=== PATIENT | female | born 1950 | race Caucasian/White ===

== ENCOUNTER → 2016-10-27 | Outpatient (CLI) | payer OTHER ==
[~2016-10-27] MED LIST: ADVIN25/60 INH; ALBINS/ INH; ALBU18002 INH; ALBU1AER9 INH; BACL10TA PO; BIOTCAP2 PO; CARB200T PO; CEFD300C2 PO; CEPH500C2 PO; CLON1TAB3 PO; CLOP1TAB5 PO; CZR50 PO; DIPH1TAB PO; DIPH25CA37 PO; DOXE25CA2 PO; FAMO20TA9 PO; GFNSR600 PO; HYDR-3983 PO; LACT10SO17 PO; LAMO150T32 PO; LCTL30 PO; LEVO1TAB35 PO; LOSA50TA6 PO; MELA1TAB22 PO; MELA1TAB3 PO; MELO7.5T5 PO; MORP1TAB12 PO; MORP30TA23 PO; NCDT21 TOP; ONDA4TAB46 PO; POTTAB2 PO; PRED10TA PO; PROAIR INH; QUET1TAB34 PO; ROSU5TAB PO; SERT1TAB68 PO; SYMIN160 INH; TIOT1AER2 INH; TOPI200T14 PO; UMEC1INH INH; VTMD PO; ZINC1TAB4 PO; ZINC50TA3 PO; ZOLP10TA6 PO
[2016-10-27 17:10] LABS: BASO % 0.2 %; BASO ABS # 0.02 K/uL (0-0.2); COMPLETE YES; EOS % 1.2 %; HEMATOCRIT 39.7 % (37-47); IG% 0.2 %; LYMPH % 18.4 %; MEAN CORPUSCULAR HEMOGLOBIN 34.9 pg (25-34); MEAN CORPUSCULAR HGB CONC 34.5 g/dl (32-36); MEAN PLATELET VOLUME 9.5 fL (7.4-10.4); MONO % 5.3 %; NEUT % 74.7 %; PLATELET COUNT 286 K/uL (130-400); RED BLOOD COUNT 3.93 M/uL (4.2-5.4); WHITE BLOOD COUNT 8.69 K/uL (4.8-10.8)
[2016-10-27 17:18] LABS: ALT/SGPT 18 U/L (12-78); BLOOD UREA NITROGEN 13 mg/dl (7-18); BUN/CREATININE RATIO 17.2 (10-20); CALCIUM 9.2 mg/dl (8.5-10.1); CARBON DIOXIDE 23 mmol/L (21-32); CHLORIDE 104 mmol/L (98-107); CHOLESTEROL 114 mg/dl (0-200); CREATININE 0.76 mg/dl (0.60-1.20); GLUCOSE 97 mg/dl (70-99); POTASSIUM 4.4 mmol/L (3.5-5.1); SODIUM 138 mmol/L (136-145)
[2016-10-27 17:28] LABS: ALB/GLOB RATIO 1.3 (0.9-2); ALKALINE PHOSPHATASE 57 U/L (45-117); AST/SGOT 18 U/L (15-37); CHOLESTEROL/HDL RATIO 2.4; HDL CHOLESTEROL 47 mg/dl; LDL CHOLESTEROL CALCULATED 54 mg/dl; THYROID STIMULATING HORMONE 0.835 uIu/ml (0.300-4.500); TRIGLYCERIDES 67 mg/dl (0-150); VERY LOW DENSITY LIPOPROT CALC 13 mg/dl
[2016-10-28 06:21] LABS: ESTIMATED AVERAGE GLUCOSE 111 mg/dl; HA1C FLAG Normal (Normal)
== END | disposition home or self-care (01) ==
LOC: C.LABBFT 15:58
PROVIDERS: ATTEND Internal Medicine
DX: E55.9 Vitamin D deficiency, unspecified (principal); R73.01 Impaired fasting glucose; E78.00 Pure hypercholesterolemia, unspecified; R63.4 Abnormal weight loss

== ENCOUNTER 2016-12-18 19:02 | Observation (INO) | payer OTHER ==
[~2016-12-18] VITALS: Ht 160 cm; Wt 59.3 kg
[~2016-12-18 19:02] MED LIST changes: -ADVIN25/60 INH; -ALBINS/ INH; -ALBU18002 INH; -BACL10TA PO; -CEFD300C2 PO; -CEPH500C2 PO; -CZR50 PO; -DIPH1TAB PO; -FAMO20TA9 PO; -GFNSR600 PO; -LACT10SO17 PO; -LAMO150T32 PO; -LCTL30 PO; -LEVO1TAB35 PO; -LOSA50TA6 PO; -MELA1TAB22 PO; -MELA1TAB3 PO; -MELO7.5T5 PO; -MORP1TAB12 PO; -NCDT21 TOP; -ONDA4TAB46 PO; -POTTAB2 PO; -PRED10TA PO; -PROAIR INH; -QUET1TAB34 PO; -TIOT1AER2 INH; -UMEC1INH INH; -VTMD PO; -ZINC1TAB4 PO
[2016-12-18] MEDS ORDERED: SODIUM CHLORIDE 0.9% 1000ML 1,000 ML IV ONE (19:12)
--- NOTE | 2016-12-18 19:25 | EMERGENCY ROOM VISIT NOTE ---
History Report prepared by Miguelina: Romel Banks Under the Supervision of: Dr. Lavell Nunez D.O. First contact with patient: 19:03 Chief Complaint: LETHARGIC Stated Complaint: LETHARGIC History of Present Illness The patient is a 66 year old female who presents to the Emergency Room due to worsening lethargy and altered mental status that began a few days prior to arrival. Per the patient's cousin the patient has been sleeping most of the day the past couple days. When she would wake up today she was not communicating efficiently and was not able to be understood. She has been vomiting for the past couple of days, and vomited once today after a breakfast of coffee and half a slice of toast. The cousin states that the patient is normally able to communicate at baseline. She does have a history of seizures, but her cousin states that she has not had any lately. She is a diabetic and also has a history of a stroke. She is a smoker but has not been using drugs or alcohol. The patient was not recently complaining of headaches or abdominal pain. 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 A total of 10 systems reviewed and were otherwise negative. 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 (11) TOBACCO USE DISORDER Family History Lung disease Social History Smoking Status: Current Every Day Smoker Alcohol Use: none Marital Status: Housing Status: lives with family Occupation Status: unemployed, disabled Current/Historical Medications Scheduled Baclofen (Lioresal), 10 MG PO TID Biotin (Biotin 5000), 1 CAP PO DAILY Budesonide/Formoterol Fumarate (Symbicort 160/4.5 Inhaler), 2 PUFFS INH BID Clopidogrel Bisulfate (Plavix), 75 MG PO DAILY Ergocalciferol (Vitamin D), 1 CAP PO WK Famotidine (Pepcid), 20 MG PO DAILY Lamotrigine (Lamictal), 150 MG PO BID Levofloxacin (Levaquin), 750 MG PO DAILY Losartan Potassium (Losartan Potassium), 50 MG PO SS Melatonin-Pyridoxine (Melatonin), 10 MG PO HS Morphine Sulfate (Morphine Sulfate Er), 30 MG PO Q12 Quetiapine Fumarate (Seroquel), 100 MG PO HS Rosuvastatin Calcium (Crestor), 5 MG PO HS Tiotropium [place] Monohydrate (Spiriva Respimat), 2 PUFF INH DAILY Umeclidinium [place] (Incruse Ellipta), 1 PUFF INH DAILY Zinc (Zinc), 50 TAB PO AMHS Scheduled PRN Diphenhydramine Hcl (Benadryl Allergy), 25 MG PO Q6 PRN for Hydrocodone/Acetaminophen 7.5MG/325MG ([place] 7.5MG/325MG), 1 TAB PO TID PRN for Pain Meloxicam (Mobic), 7.5 MG PO DAILY PRN for Pain [Proair], 2 PUFFS INH QID PRN for SOB/Wheezing Allergies Coded Allergies: Penicillins (Verified Allergy, Unknown, 06/29/16) PATIENT IS NOT ALLERGIC TO PCN - HAS BEEN ON KEFLEX BEFORE PER DR. VALLE - ONLY NAUSEA Physical Exam Vital Signs Date Time Temp Pulse Resp B/P Pulse Ox O2 Delivery O2 Flow Rate FiO2 12/18/16 21:45 77 18 112/71 100 12/18/16 21:06 84 18 122/73 100 Room Air 12/18/16 19:18 80 12/18/16 19:07 100 Room Air 12/18/16 19:07 36.6 82 16 115/68 100 Room Air Physical Exam GENERAL: Patient is listless and falls asleep quickly when not being evaluated. She does respond to verbal stimuli, but not appropriately. EYES: The conjunctivae are clear. The pupils are constricted and minimally reactive to light. EARS, NOSE, MOUTH AND THROAT: The nose is without any evidence of any deformity. Mucous membranes are dry tongue is midline NECK: The neck is nontender and supple. RESPIRATORY: Shallow respirations weer noted, diminished breath sounds throughout. No tachypnea or retractions noted. CARDIOVASCULAR: Regular rate and rhythm noted there no murmurs rubs or gallops normal S1 normal S2 GASTROINTESTINAL: The abdomen is distended but soft. Bowel sounds are present in all quadrants. Abdomen is nontender PELVIS: The Pelvis is stable. No tenderness to palpation is noted. BACK: No midline tenderness or or step-off noted range of motion in flexion extension as well as rotation no signs of muscle spasm noted MUSCULOSKELETAL/EXTREMITIES: There is no evidence of gross deformity full range of motion is noted in the hips and shoulders SKIN: There is no obvious evidence of any rash. There are no petechiae, pallor or cyanosis noted. NEUROLOGIC: Does not answer questions appropriately. Unable to assess. Reflexes 3+ in both lower extremities. Medical Decision & Procedures ER Provider Diagnostic Interpretation: Radiology results as stated below per my review and radiologist interpretation: CT SCAN OF THE ABDOMEN AND PELVIS WITHOUT IV CONTRAST CLINICAL HISTORY: Generalized abdominal pain. Vomiting. COMPARISON STUDY: Abdominal CT dated 04/09/2016. TECHNIQUE: CT scan of the abdomen and pelvis is performed from the lung bases to the proximal femora. Images are reviewed in the axial, sagittal, and coronal planes. IV contrast was not administered for this examination as per the front clinician. Note that the examination was performed in significantly suboptimal fashion without oral and IV contrast. The examination is also degraded by motion artifact. Automated dose control exposure was utilized. CT DOSE: 294.23 mGy.cm FINDINGS: Lung bases: The heart is normal in size and without pericardial effusion. There are coronary artery calcifications. There is diminished attenuation of the cardiac blood pool as compared to the myocardium suggesting anemia. The lung bases are clear noting dependent atelectasis. Liver: The unenhanced liver is normal in size, contour, and attenuation. There is mild central intrahepatic biliary ductal dilatation. Gallbladder: Surgically absent noting clips in the gallbladder fossa. Spleen: Normal in size and attenuation. Pancreas: Atrophic and grossly unremarkable but not well assessed. Adrenal glands: A 1.3 cm left adrenal nodule meets CT criteria for a fat-containing adenoma. The right adrenal gland is unremarkable. Kidneys: The unenhanced kidneys are atrophic and without hydronephrosis. There are no renal calculi identified. There is no evidence of contour deforming renal mass lesion. Abdominal vasculature: The abdominal aorta is normal in course and caliber noting moderate to advanced atherosclerotic calcification. Bowel: The small bowel and colon are normal in course and caliber. There is moderate to severe colonic fecal retention. A portion of the normal appendix is likely seen on image #[id number]. Peritoneum: There is no intraperitoneal free air or abdominal ascites. Lymphadenopathy: None. Pelvic viscera: The bladder is normal as visualized. The uterus is surgically absent. No adnexal lesion is seen. Surgical clips are seen in the groin bilaterally. Skeletal structures: The skeletal structures are heterogeneously osteopenic. There is advanced lumbar sacral spondylosis with evidence of laminectomy in the lower lumbar region. No lytic or blastic lesions are seen. A bone graft donor site is noted in the right ilium. IMPRESSION: 1. Significantly suboptimal examination without oral and IV contrast. The examination is also degraded by motion artifact. 2. No acute infectious or inflammatory findings are identified in the abdomen or pelvis. 3. Moderate to severe constipation. 4. Additional findings as above. Electronically signed by: Demarco Abreu M.D. 12/18/2016 8:11 PM Dictated Date/Time: 12/18/2016 8:00 PM SINGLE VIEW CHEST CLINICAL HISTORY: Sepsis. FINDINGS: An AP, portable, upright chest radiograph is compared to study dated 06/29/2016 and correlated with chest CT dated 01/21/2016. The examination is degraded by portable technique and patient rotation. The cardiomediastinal silhouette is unremarkable. There is atherosclerotic calcification of the thoracic aorta. Advanced emphysema and chronic interstitial thickening is similar to previous. No airspace consolidation or pleural effusion is identified. No pneumothorax is seen. The skeletal structures are osteopenic. Degenerative change is noted throughout the thoracic spine. Fusion hardware is present in the lower cervical spine. Surgical clips are identified in the upper abdomen. IMPRESSION: Advanced emphysema with no acute cardiopulmonary abnormality. Electronically signed by: Demarco Abreu M.D. 12/18/2016 8:47 PM Dictated Date/Time: 12/18/2016 8:[address] SCAN OF THE BRAIN WITHOUT IV CONTRAST CLINICAL HISTORY: Change in mental status. COMPARISON STUDY: CT of the brain dated 06/29/2016. TECHNIQUE: Unenhanced axial CT scan of the brain is performed from the vertex to the skull base. CT DOSE: 537.48 mGy.cm FINDINGS: Brain parenchyma: There are age-related involutional changes noting mild subcortical and periventricular microangiopathic change. There is no hemorrhage, mass effect, or evidence of acute territorial ischemia by CT criteria. Eagle-white matter is preserved. No extra-axial fluid collection is seen. Ventricles, sulci, cisterns: Prominent secondary to involutional change. Intracranial vasculature: There is mild atherosclerotic calcification of the cavernous carotid arteries. Calvarium: Unremarkable. Sinuses and mastoids: The visualized paranasal sinuses are clear. The mastoid air cells are well pneumatized. Orbits: The bony orbits are grossly intact. IMPRESSION: There is no hemorrhage, mass effect, or evidence of acute territorial ischemia by CT criteria. Electronically signed by: Demarco Abreu M.D. 12/18/2016 8:03 PM Dictated Date/Time: 12/18/2016 8:01 PM Laboratory Results 12/18/16 19:40 Red Blood Count 3.47, Mean Corpuscular Volume 101.7, Mean Corpuscular Hemoglobin 36.0, Mean Corpuscular Hemoglobin Concent 35.4, Mean Platelet Volume 8.8, Neutrophils (%) (Auto) 61.7, Lymphocytes (%) (Auto) 28.7, Monocytes (%) ( Auto) 7.5, Eosinophils (%) (Auto) 1.5, Basophils (%) (Auto) 0.5, Neutrophils # ( Auto) 4.85, Lymphocytes # (Auto) 2.26, Monocytes # (Auto) 0.59, Eosinophils # ( Auto) 0.12, Basophils # (Auto) 0.04 12/18/16 19:40 Test 12/18/16 19:25 12/18/16 19:40 12/18/16 19:48 Urine Color YELLOW Urine Appearance CLEAR (CLEAR) Urine pH 6.5 (4.5-7.5) Urine Specific [place] 1.009 (1.000-1.030) Urine Protein NEG (NEG) Urine Glucose (UA) NEG (NEG) Urine Ketones NEG (NEG) Urine Occult Blood NEG (NEG) Urine Nitrite POS (NEG) Urine Bilirubin NEG (NEG) Urine Urobilinogen NEG (NEG) Urine Leukocyte Esterase MODERATE (NEG) Urine WBC (Auto) >30 /hpf (0-5) Urine RBC (Auto) 0-4 /hpf (0-4) Urine Hyaline Casts (Auto) 0 /lpf (0-5) Urine Epithelial Cells (Auto) 0-5 /lpf (0-5) Urine Bacteria (Auto) 3+ (NEG) Urine Yeast (Auto) (NONE PRSENT) Urine Opiates Screen POS (NEG) Urine Methadone, Qualitative NEG (NEG) Urine Barbiturates NEG (NEG) Urine Phencyclidine (PCP) Level NEG (NEG) Ur Amphetamine/Methamphetamine NEG (NEG) MDMA (Ecstasy) Screen NEG (NEG) Urine Benzodiazepines Screen NEG (NEG) Urine Cocaine Metabolite NEG (NEG) Urine Marijuana (THC) NEG (NEG) White Blood Count 7.87 K/uL (4.8-10.8) Red Blood Count 3.47 M/uL (4.2-5.4) Hemoglobin 12.5 g/dL (12.0-16.0) Hematocrit 35.3 % (37-47) Mean Corpuscular Volume 101.7 fL (80-100) Mean Corpuscular Hemoglobin 36.0 pg (25-34) Mean Corpuscular Hemoglobin Concent 35.4 g/dl (32-36) Platelet Count 284 K/uL (130-400) Mean Platelet Volume 8.8 fL (7.4-10.4) Neutrophils (%) (Auto) 61.7 % Lymphocytes (%) (Auto) 28.7 % Monocytes (%) (Auto) 7.5 % Eosinophils (%) (Auto) 1.5 % Basophils (%) (Auto) 0.5 % Neutrophils # (Auto) 4.85 K/uL (1.4-6.5) Lymphocytes # (Auto) 2.26 K/uL (1.2-3.4) Monocytes # (Auto) 0.59 K/uL (0.11-0.59) Eosinophils # (Auto) 0.12 K/uL (0-0.5) Basophils # (Auto) 0.04 K/uL (0-0.2) RDW Standard Deviation 53.9 fL (36.4-46.3) RDW Coefficient of Variation 14.5 % (11.5-14.5) Immature Granulocyte % (Auto) 0.1 % Immature Granulocyte # (Auto) 0.01 K/uL (0.00-0.02) Erythrocyte Sedimentation Rate 13 mm/hr (0-21) Prothrombin Time 10.4 SECONDS (9.0-12.0) Prothromb Time International Ratio 1.0 (0.9-1.1) Activated Partial Thromboplast Time 25.0 SECONDS (21.0-31.0) Partial Thromboplastin Ratio 1.0 Venous Blood pH 7.37 (7.36-7.41) Venous Blood Partial Pressure CO2 51 mmHg (38.0-50.0) Venous Blood Partial Pressure O2 22 mmHg Venous Blood HCO3 29 mmol/L Venous Blood Oxygen Saturation < 60.0 % Venous Blood Base Excess 2.5 mmol/L Anion Gap 9.0 mmol/L (3-11) Est Creatinine Clear Calc Drug Dose 59.4 ml/min Estimated GFR () 93.3 Estimated GFR (Non- 80.5 BUN/Creatinine Ratio 12.2 (10-20) Calcium Level 8.5 mg/dl (8.5-10.1) Phosphorus Level 3.5 mg/dl (2.5-4.9) Magnesium Level 2.2 mg/dl (1.8-2.4) Total Bilirubin 0.4 mg/dl (0.2-1) Aspartate Amino Transf (AST/SGOT) 15 U/L (15-37) Alanine Aminotransferase (ALT/SGPT) 18 U/L (12-78) Alkaline Phosphatase 62 U/L (45-117) Ammonia < 10.0 umol/L (11-32) Total Creatine Kinase 46 U/L (26-192) Creatine Kinase MB 1.5 ng/ml (0.5-3.6) Creatine Kinase MB Ratio 3.3 (0-3.0) Troponin I < 0.015 ng/ml (0-0.045) C-Reactive Protein 0.99 mg/dl (0-0.29) Pro-B-Type Natriuretic Peptide 172 pg/ml (0-900) Total Protein 6.6 gm/dl (6.4-8.2) Albumin 3.6 gm/dl (3.4-5.0) Globulin 3.0 gm/dl (2.5-4.0) Albumin/Globulin Ratio 1.2 (0.9-2) Lipase 51 U/L (73-393) Salicylates Level 5.6 mg/dl (2.8-20) Acetaminophen Level 7 ug/ml (10-30) Bedside Lactic Acid Venous 0.74 mmol/L (0.90-1.70) Laboratory results per my review. Medications Administered Medications (Trade) Dose Ordered Sig/Zeinab Route Start Time Stop Time Status Last Admin Dose Admin Sodium Chloride (Nss 1000ml) 1,000 ml @ 999 mls/hr Q1H1M ONCE IV 12/18/16 19:12 12/18/16 20:12 DC 12/18/16 19:18 999 MLS/HR Levofloxacin (Levaquin / D5W) 750 mg NOW STAT IV 12/18/16 20:16 12/18/16 20:17 DC 12/18/16 20:25 750 MG ED Course 1905: The patient was evaluated in room C4. A complete history and physical examination were performed. 1911: Ordered Sodium Chloride 1000 mL @ 999 mL/hr IV. 2015: Ordered Levofloxacin 750 mg IV. 2052: I discussed the case with Dr. Lin Quintana [facility] Hospitalist, he will evaluate the patient for further treatment. Medical Decision The patient's history was concerning for altered mental status. Differential diagnosis: Etiologies such as metabolic, infection, hypoglycemia, electrolyte abnormalities , cardiac sources, intracerebral event, toxicologic, neurologic, as well as others were entertained. Nursing notes reviewed. Additional history is obtained from the patient's family members. Additional history is obtained from the prehospital personnel. The patient is a 66-year-old female who presented to the emergency department for evaluation of altered mental status. The patient is on multiple pain medications which are chronic. Her family members are afraid that she lost some weight recently and they feel that she is on too much pain medication. The patient was treated with IV fluids and IV antibiotics for presumed urinary tract infection. She was reevaluated multiple times. I discussed the patient's laboratory and radiographic studies with her and her family members. Her condition slowly improved at this time I feel her condition is secondary to her pain medication. The patient was evaluated by the [facility] hospitalist for possible inpatient management but the patient was so improved that she wished to be discharged home. I explained to her that it would probably be in her best interest to stay in the hospital and have her medications adjusted properly she was encouraged to only take her medications as prescribed and even consider taking less of her pain medication until she is seen by her primary care physician and her chronic pain physician so she may have her medications reevaluated. Otherwise she was encouraged to return to the emergency department immediately if symptoms change worsen or the need arises. The [facility] hospitalist also informed the patient that if she wished to still be admitted to the hospital that her orders were already in the computer and if she decides to stay it would not be a problem at all. Consults Time Called: 2040 Consulting Physician: Dr. Lin ZARATE Hospitalist Returned Call: 2052 I discussed the case with Dr. Lin ZARATE Hospitalist, he will evaluate the patient for further treatment. Impression Primary Impression: Altered mental status Additional Impressions: UTI (urinary tract infection) Adv eff opiates Scribe Attestation The scribe's documentation has been prepared under my direction and personally reviewed by me in its entirety. I confirm that the note above accurately reflects all work, treatment, procedures, and medical decision making performed by me. Departure Information Dispostion Being Evaluated By Hospitalist Prescriptions Levofloxacin (Levaquin) 750 Mg Tab 750 MG PO DAILY, #5 TAB Prov: Lavell Nunez, 12/18/16 Referrals Rivas Horn M.D. (PCP) Patient Instructions My [facility] Problem Qualifiers Primary Impression: Altered mental status Altered mental status type: unspecified Qualified Codes: R41.82 - Altered mental status, unspecified Additional Impressions: UTI (urinary tract infection) Urinary tract infection type: site unspecified Hematuria presence: without hematuria Qualified Codes: N39.0 - Urinary tract infection, site not specified
[2016-12-18] MEDS ORDERED: PROAIR INH (19:41)
[2016-12-18 19:48] LABS: URINE APPEARANCE CLEAR (CLEAR); URINE BILIRUBIN NEG (NEG); URINE COLOR YELLOW; URINE EPITHELIAL CELL AUTO 0-5 /lpf (0-5); URINE NITRITE POS (NEG); URINE PH 6.5 (4.5-7.5); URINE SPECIFIC GRAVITY 1.009 (1.000-1.030); UROBILINOGEN NEG (NEG); ZZURINE CULT IF INDIC CATH YES
[2016-12-18 19:54] LABS: BASO % 0.5 %; BASO ABS # 0.04 K/uL (0-0.2); COMPLETE YES; EOS % 1.5 %; HEMATOCRIT 35.3 % (37-47); IG% 0.1 %; LYMPH % 28.7 %; LYMPH ABS # 2.26 K/uL (1.2-3.4); MEAN CELL VOLUME 101.7 fL (80-100); MEAN CORPUSCULAR HGB CONC 35.4 g/dl (32-36); MEAN PLATELET VOLUME 8.8 fL (7.4-10.4); MONO % 7.5 %; NEUT % 61.7 %; PLATELET COUNT 284 K/uL (130-400); RED BLOOD COUNT 3.47 M/uL (4.2-5.4); WHITE BLOOD COUNT 7.87 K/uL (4.8-10.8)
[2016-12-18 19:55] LABS: VEN BLOOD GAS BASE EXCESS 2.5 mmol/L; VENOUS BLOOD GAS PCO2 51 mmHg (38.0-50.0); VENOUS BLOOD GAS PO2 22 mmHg
[2016-12-18 19:56] LABS: VEN BLD GAS O2 SATURATION < 60.0 %
[2016-12-18 19:59] LABS: BENZODIAZEPINE, URINE NEG (NEG); COCAINE,URINE NEG (NEG); PHENCYCLIDINE, URINE NEG (NEG)
[2016-12-18 20:04] LABS: MANUAL MICROSCOPIC REQUIRED? NO; REVIEW REQ? YES
[2016-12-18] MEDS ORDERED: MORP1TAB12 PO (20:04)
[2016-12-18] MEDS ORDERED: MELO7.5T5 PO (20:04)
[2016-12-18] MEDS ORDERED: VTMD PO (20:04)
[2016-12-18] MEDS ORDERED: FAMO20TA9 PO (20:04)
[2016-12-18] MEDS ORDERED: MELA1TAB22 PO (20:04)
[2016-12-18] MEDS ORDERED: UMEC1INH INH (20:04)
[2016-12-18] MEDS ORDERED: QUET1TAB34 PO (20:04)
[2016-12-18] MEDS ORDERED: TIOT1AER2 INH (20:04)
[2016-12-18] MEDS ORDERED: CZR50 PO (20:04)
[2016-12-18] MEDS ORDERED: LAMO150T32 PO (20:04)
[2016-12-18] MEDS ORDERED: BACL10TA PO (20:04)
[2016-12-18] MEDS ORDERED: DIPH1TAB PO (20:04)
--- NOTE | 2016-12-18 20:05 | DIAGNOSTIC IMAGING REPORT ---
CT SCAN OF THE BRAIN WITHOUT IV CONTRAST CLINICAL HISTORY: Change in mental status. COMPARISON STUDY: CT of the brain dated 06/29/2016. TECHNIQUE: Unenhanced axial CT scan of the brain is performed from the vertex to the skull base. CT DOSE: 537.48 mGy.cm FINDINGS: Brain parenchyma: There are age-related involutional changes noting mild subcortical and periventricular microangiopathic change. There is no hemorrhage, mass effect, or evidence of acute territorial ischemia by CT criteria. Eagle-white matter is preserved. No extra-axial fluid collection is seen. Ventricles, sulci, cisterns: Prominent secondary to involutional change. Intracranial vasculature: There is mild atherosclerotic calcification of the cavernous carotid arteries. Calvarium: Unremarkable. Sinuses and mastoids: The visualized paranasal sinuses are clear. The mastoid air cells are well pneumatized. Orbits: The bony orbits are grossly intact. IMPRESSION: There is no hemorrhage, mass effect, or evidence of acute territorial ischemia by CT criteria. Electronically signed by: Demarco Abreu M.D. 12/18/2016 8:03 PM Dictated Date/Time: 12/18/2016 8:01 PM
[2016-12-18 20:06] LABS: PROTHROMBIN TIME (PATIENT) 10.4 SECONDS (9.0-12.0)
--- NOTE | 2016-12-18 20:12 | DIAGNOSTIC IMAGING REPORT ---
CT SCAN OF THE ABDOMEN AND PELVIS WITHOUT IV CONTRAST CLINICAL HISTORY: Generalized abdominal pain. Vomiting. COMPARISON STUDY: Abdominal CT dated 04/09/2016. TECHNIQUE: CT scan of the abdomen and pelvis is performed from the lung bases to the proximal femora. Images are reviewed in the axial, sagittal, and coronal planes. IV contrast was not administered for this examination as per the front clinician. Note that the examination was performed in significantly suboptimal fashion without oral and IV contrast. The examination is also degraded by motion artifact. Automated dose control exposure was utilized. CT DOSE: 294.23 mGy.cm FINDINGS: Lung bases: The heart is normal in size and without pericardial effusion. There are coronary artery calcifications. There is diminished attenuation of the cardiac blood pool as compared to the myocardium suggesting anemia. The lung bases are clear noting dependent atelectasis. Liver: The unenhanced liver is normal in size, contour, and attenuation. There is mild central intrahepatic biliary ductal dilatation. Gallbladder: Surgically absent noting clips in the gallbladder fossa. Spleen: Normal in size and attenuation. Pancreas: Atrophic and grossly unremarkable but not well assessed. Adrenal glands: A 1.3 cm left adrenal nodule meets CT criteria for a fat-containing adenoma. The right adrenal gland is unremarkable. Kidneys: The unenhanced kidneys are atrophic and without hydronephrosis. There are no renal calculi identified. There is no evidence of contour deforming renal mass lesion. Abdominal vasculature: The abdominal aorta is normal in course and caliber noting moderate to advanced atherosclerotic calcification. Bowel: The small bowel and colon are normal in course and caliber. There is moderate to severe colonic fecal retention. A portion of the normal appendix is likely seen on image #260. Peritoneum: There is no intraperitoneal free air or abdominal ascites. Lymphadenopathy: None. Pelvic viscera: The bladder is normal as visualized. The uterus is surgically absent. No adnexal lesion is seen. Surgical clips are seen in the groin bilaterally. Skeletal structures: The skeletal structures are heterogeneously osteopenic. There is advanced lumbar sacral spondylosis with evidence of laminectomy in the lower lumbar region. No lytic or blastic lesions are seen. A bone graft donor site is noted in the right ilium. IMPRESSION: 1. Significantly suboptimal examination without oral and IV contrast. The examination is also degraded by motion artifact. 2. No acute infectious or inflammatory findings are identified in the abdomen or pelvis. 3. Moderate to severe constipation. 4. Additional findings as above. Electronically signed by: Demarco Abreu M.D. 12/18/2016 8:11 PM Dictated Date/Time: 12/18/2016 8:00 PM
[2016-12-18 20:13] LABS: ALT/SGPT 18 U/L (12-78); BLOOD UREA NITROGEN 9 mg/dl (7-18); BUN/CREATININE RATIO 12.2 (10-20); C-REACTIVE PROTEIN 0.99 mg/dl (0-0.29); CALCIUM 8.5 mg/dl (8.5-10.1); CARBON DIOXIDE 25 mmol/L (21-32); CHLORIDE 107 mmol/L (98-107); CREATININE 0.77 mg/dl (0.60-1.20); GLUCOSE 101 mg/dl (70-99); MAGNESIUM 2.2 mg/dl (1.8-2.4); SODIUM 141 mmol/L (136-145)
[2016-12-18 20:16] LABS: ALB/GLOB RATIO 1.2 (0.9-2); ALKALINE PHOSPHATASE 62 U/L (45-117); AST/SGOT 15 U/L (15-37); CKMB/CK RATIO 3.3 (0-3.0); PHOSPHORUS 3.5 mg/dl (2.5-4.9)
[2016-12-18] MEDS ORDERED: LEVAQUIN 750MG / 150ML D5W IV STA (20:16)
--- NOTE | 2016-12-18 20:48 | DIAGNOSTIC IMAGING REPORT ---
SINGLE VIEW CHEST CLINICAL HISTORY: Sepsis. FINDINGS: An AP, portable, upright chest radiograph is compared to study dated 06/29/2016 and correlated with chest CT dated 01/21/2016. The examination is degraded by portable technique and patient rotation. The cardiomediastinal silhouette is unremarkable. There is atherosclerotic calcification of the thoracic aorta. Advanced emphysema and chronic interstitial thickening is similar to previous. No airspace consolidation or pleural effusion is identified. No pneumothorax is seen. The skeletal structures are osteopenic. Degenerative change is noted throughout the thoracic spine. Fusion hardware is present in the lower cervical spine. Surgical clips are identified in the upper abdomen. IMPRESSION: Advanced emphysema with no acute cardiopulmonary abnormality. Electronically signed by: Demarco Abreu M.D. 12/18/2016 8:47 PM Dictated Date/Time: 12/18/2016 8:45 PM
[2016-12-18] MEDS ORDERED: MELOXICAM 7.5 MG TAB PO PRN (21:15)
[2016-12-18] MEDS ORDERED: ONDANSETRON INJ 2 MG/ML 2 ML VIAL IV PRN (21:15)
[2016-12-18] MEDS ORDERED: SODIUM CHLORIDE 0.9% 1000ML 1,000 ML IV SCH (21:15)
[2016-12-18] MEDS ORDERED: MAGNESIUM HYDROXIDE SUSP 30 ML UDC PO PRN (21:15)
[2016-12-18] MEDS ORDERED: ACETAMINOPHEN 325 MG TAB PO PRN (21:15)
[2016-12-18] MEDS ORDERED: POLYETHYLENE (MIRALAX) 17 GM PACK PO PRN (21:15)
[2016-12-18] MEDS ORDERED: ALUMINUM/MAGNESIUM/SIMETH (MAALOX MAX) 30 ML UDC PO PRN (21:15)
[2016-12-18] MEDS ORDERED: LORAZEPAM INJ 0.5 MG in SYRINGE 0.75 ML IV PRN (21:30)
[2016-12-18] MEDS ORDERED: LORAZEPAM 2 MG/ML 1 ML VIAL IV PRN (21:30)
[2016-12-18] MEDS ORDERED: LEVO1TAB35 PO (21:31)
[2016-12-18] MEDS ORDERED: IV FLUIDS COMPLETED PRN (22:00)
[2016-12-18 22:15] VITALS: BP 126/75; PULSE 71; TEMP 37.1; O2SAT 97; Ht 160 cm; Wt 59.3 kg
[2016-12-18] MEDS ORDERED: LEVOFLOXACIN CONSULT ACTIVE PRN (23:15)
[2016-12-18] MEDS: ENOXAPARIN 40 MG/0.4 ML SYR SC SCH (23:21)
[2016-12-19 01:30] VITALS: BP_SYST 88; BP_SYST 91; BP_SYST 93; BP_DIAS 53; BP_DIAS 57; PULSE 62; PULSE 65; PULSE 68; O2SAT 95
[2016-12-19] MEDS ORDERED: SODIUM CHLORIDE 0.9% 1000ML 1,000 ML IV SCH (02:15)
--- NOTE | 2016-12-19 02:46 | History and Physical ---
History & Physical Date & Time of Service: Dec 19, 2016 at 02:20 Chief Complaint: Altered Mental Status, Opiate Or Related Narcotic Primary Care Physician: Rivas Horn M.D. History of Present Illness Source: patient, family 66 y/o F w/Hx Seizure disorder, HPL, COPD, tobacco abuse, chronic back pain w/ high dose, opiate-dependence - became somnolent at home this evening prompting family to call the EMS service. She was barely responsive on arrival to the ER and gradually regained full consciousness over the course of 1-2 hours. She is known to be dependent on a high dose of narcotics and her family were concerned that she was taking more medications than usual recently. The pt confirmed that she needs to cut back on her opiate use when she regained her bearings. She denied SOB, CP, N/V or fevers prior to arrival. She did express that she was light headed and was slightly orthostatic initially. She did not require Narcan as she was maintaining an adequate respiratory rate. The pt is also prescribed a few psychiatric medications that may have contributed to her somnolence. Labs were notable for a (+) UA. Past Medical/Surgical History Medical Problems: (1) Chronic obstructive lung disease Status: Chronic (2) DEPRESSIVE DISORDER NEC Status: Chronic (3) EPILEPSY UNSPEC W/O MENTION INTRACTABLE EPILEPSY Status: Chronic (4) HYPERLIPIDEMIA NEC/NOS Status: Chronic (5) HYPERTENSION NOS Status: Chronic (6) LUMBOSACRAL SPONDYLOSIS Status: Chronic (8) POSTLAMINECT SYND-LUMBAR Status: Chronic (9) REFLEX SYMPATHETIC DYSTROPHY NOS Status: Chronic (10) TOBACCO USE DISORDER Status: Chronic Family History Lung disease Social History The pt enjoys 1.5 packs daily and rarely drinks alcohol Smoking Status: Current Every Day Smoker Marital Status: Occupational Status: unemployed, disabled Immunizations History of Tetanus Vaccine?: Unknown History of Pneumococcal: Unknown History of Hepatitis B Vaccine: Unknown Multi-Drug Resistant Organisms History of MDRO: No Allergies Coded Allergies: Penicillins (Verified Allergy, Unknown, 06/29/16) PATIENT IS NOT ALLERGIC TO PCN - HAS BEEN ON KEFLEX BEFORE PER DR. VALLE - ONLY NAUSEA Home Medications Scheduled Baclofen (Lioresal), 10 MG PO TID Biotin (Biotin 5000), 1 CAP PO DAILY Budesonide/Formoterol Fumarate (Symbicort 160/4.5 Inhaler), 2 PUFFS INH BID Clopidogrel Bisulfate (Plavix), 75 MG PO DAILY Ergocalciferol (Vitamin D), 1 CAP PO WK Famotidine (Pepcid), 20 MG PO DAILY Lamotrigine (Lamictal), 150 MG PO BID Levofloxacin (Levaquin), 750 MG PO DAILY Losartan Potassium (Losartan Potassium), 50 MG PO SS Melatonin-Pyridoxine (Melatonin), 10 MG PO HS Morphine Sulfate (Morphine Sulfate Er), 30 MG PO Q12 Quetiapine Fumarate (Seroquel), 100 MG PO HS Rosuvastatin Calcium (Crestor), 5 MG PO HS Tiotropium [place] Monohydrate (Spiriva Respimat), 2 PUFF INH DAILY Umeclidinium [place] (Incruse Ellipta), 1 PUFF INH DAILY Zinc (Zinc), 50 TAB PO AMHS Scheduled PRN Diphenhydramine Hcl (Benadryl Allergy), 25 MG PO Q6 PRN for Hydrocodone/Acetaminophen 7.5MG/325MG ([place] 7.5MG/325MG), 1 TAB PO TID PRN for Pain Meloxicam (Mobic), 7.5 MG PO DAILY PRN for Pain [Proair], 2 PUFFS INH QID PRN for SOB/Wheezing Review of Systems Constitutional: No chills, No fever, No sweats Eyes: No eye pain, No worsening of vision ENT: No hearing loss, No nasal symptoms, No unusual epistaxis Respiratory: No cough, No sputum, No wheezing Cardiovascular: No PND, No chest pain, No orthopnea Abdomen: No nausea, No pain, No vomiting Musculoskeletal: No joint pain, No muscle pain Genitourinary - Female: No dysuria, No urinary frequency, No urinary urgency Neurologic: + problem reported (light headed), + weakness, No memory loss, No paralysis Psychiatric: No depression symptoms Endocrine: + fatigue Hematologic / Lymphatic: No abnormal bleeding/bruising Integumentary: No rash Allergic / Immunologic: No environmental allergies Physical Exam Vital Signs Date Time Temp Pulse Resp B/P Pulse Ox O2 Delivery O2 Flow Rate FiO2 12/19/16 01:30 65 20 91/57 95 Room Air 68 93/53 62 88/57 12/18/16 22:15 37.1 71 20 126/75 97 Room Air 12/18/16 21:45 77 18 112/71 100 12/18/16 21:06 84 18 122/73 100 Room Air 12/18/16 19:18 80 12/18/16 19:07 100 Room Air 12/18/16 19:07 36.6 82 16 115/68 100 Room Air General Appearance: WD/WN, no apparent distress, + pertinent finding (Pleasant elderly female in no acute distress) Head: normocephalic, atraumatic Eyes: normal inspection, PERRL, EOMI ENT: normal ENT inspection, hearing grossly normal, TMs normal, pharynx normal Neck: supple, no adenopathy, thyroid normal, no JVD Respiratory/Chest: lungs clear, no respiratory distress, no accessory muscle use, + decreased breath sounds Cardiovascular: regular rate, rhythm, no edema, no gallop, no JVD, no murmur, normal peripheral pulses Abdomen/GI: normal bowel sounds, non tender, soft Back: normal inspection, no CVA tenderness Extremities/Musculoskelatal: normal inspection, no calf tenderness, normal capillary refill, no pedal edema, normal range of motion Neurologic/Psych: scratch polisher II-XII nml as tested, no motor/sensory deficits, alert, normal mood/affect, normal reflexes, oriented x 3 Skin: warm/dry, no rash, + pertinent finding (APpears tanned - multiple tattoos of generally poor quality) Diagnostics Laboratory Results Results Past 24 Hours Test 12/18/16 19:00 12/18/16 19:25 12/18/16 19:40 12/18/16 19:48 Range/Units Hepatitis C Antibody Screen NEG NEG Urine Color YELLOW Urine Appearance CLEAR CLEAR Urine pH 6.5 4.5-7.5 Urine Specific [place] 1.009 1.000-1.030 Urine Protein NEG NEG Urine Glucose (UA) NEG NEG Urine Ketones NEG NEG Urine Occult Blood NEG NEG Urine Nitrite POS NEG Urine Bilirubin NEG NEG Urine Urobilinogen NEG NEG Urine Leukocyte Esterase MODERATE NEG Urine WBC (Auto) >30 0-5 /hpf Urine RBC (Auto) 0-4 0-4 /hpf Urine Hyaline Casts (Auto) 0 0-5 /lpf Urine Epithelial Cells (Auto) 0-5 0-5 /lpf Urine Bacteria (Auto) 3+ NEG Urine Yeast (Auto) NONE PRSENT Urine Opiates Screen POS NEG Urine Methadone, Qualitative NEG NEG Urine Barbiturates NEG NEG Urine Phencyclidine (PCP) Level NEG NEG Ur Amphetamine/Methamphetamine NEG NEG MDMA (Ecstasy) Screen NEG NEG Urine Benzodiazepines Screen NEG NEG Urine Cocaine Metabolite NEG NEG Urine Marijuana (THC) NEG NEG White Blood Count 7.87 4.8-10.8 K/uL Red Blood Count 3.47 4.2-5.4 M/uL Hemoglobin 12.5 12.0-16.0 g/dL Hematocrit 35.3 37-47 % Mean Corpuscular Volume 101.7 80-100 fL Mean Corpuscular Hemoglobin 36.0 25-34 pg Mean Corpuscular Hemoglobin Concent 35.4 32-36 g/dl Platelet Count 284 130-400 K/uL Mean Platelet Volume 8.8 7.4-10.4 fL Neutrophils (%) (Auto) 61.7 % Lymphocytes (%) (Auto) 28.7 % Monocytes (%) (Auto) 7.5 % Eosinophils (%) (Auto) 1.5 % Basophils (%) (Auto) 0.5 % Neutrophils # (Auto) 4.85 1.4-6.5 K/uL Lymphocytes # (Auto) 2.26 1.2-3.4 K/uL Monocytes # (Auto) 0.59 0.11-0.59 K/uL Eosinophils # (Auto) 0.12 0-0.5 K/uL Basophils # (Auto) 0.04 0-0.2 K/uL RDW Standard Deviation 53.9 36.4-46.3 fL RDW Coefficient of Variation 14.5 11.5-14.5 % Immature Granulocyte % (Auto) 0.1 % Immature Granulocyte # (Auto) 0.01 0.00-0.02 K/uL Erythrocyte Sedimentation Rate 13 0-21 mm/hr Prothrombin Time 10.4 9.0-12.0 SECONDS Prothromb Time International Ratio 1.0 0.9-1.1 Activated Partial Thromboplast Time 25.0 21.0-31.0 SECONDS Partial Thromboplastin Ratio 1.0 Venous Blood pH 7.37 7.36-7.41 Venous Blood Partial Pressure CO2 51 38.0-50.0 mmHg Venous Blood Partial Pressure O2 22 mmHg Venous Blood HCO3 29 mmol/L Venous Blood Oxygen Saturation < 60.0 % Venous Blood Base Excess 2.5 mmol/L Sodium Level 141 136-145 mmol/L Potassium Level 4.0 3.5-5.1 mmol/L Chloride Level 107 98-107 mmol/L Carbon Dioxide Level 25 21-32 mmol/L Anion Gap 9.0 3-11 mmol/L Blood Urea Nitrogen 9 7-18 mg/dl Creatinine 0.77 0.60-1.20 mg/dl Est Creatinine Clear Calc Drug Dose 59.4 ml/min Estimated GFR () 93.3 Estimated GFR (Non- 80.5 BUN/Creatinine Ratio 12.2 10-20 Random Glucose 101 70-99 mg/dl Calcium Level 8.5 8.5-10.1 mg/dl Phosphorus Level 3.5 2.5-4.9 mg/dl Magnesium Level 2.2 1.8-2.4 mg/dl Total Bilirubin 0.4 0.2-1 mg/dl Aspartate Amino Transf (AST/SGOT) 15 15-37 U/L Alanine Aminotransferase (ALT/SGPT) 18 12-78 U/L Alkaline Phosphatase 62 45-117 U/L Ammonia < 10.0 11-32 umol/L Total Creatine Kinase 46 26-192 U/L Creatine Kinase MB 1.5 0.5-3.6 ng/ml Creatine Kinase MB Ratio 3.3 0-3.0 Troponin I < 0.015 0-0.045 ng/ml C-Reactive Protein 0.99 0-0.29 mg/dl Pro-B-Type Natriuretic Peptide 172 0-900 pg/ml Total Protein 6.6 6.4-8.2 gm/dl Albumin 3.6 3.4-5.0 gm/dl Globulin 3.0 2.5-4.0 gm/dl Albumin/Globulin Ratio 1.2 0.9-2 Lipase 51 73-393 U/L Salicylates Level 5.6 2.8-20 mg/dl Acetaminophen Level 7 10-30 ug/ml Bedside Lactic Acid Venous 0.74 0.90-1.70 mmol/L Microbiology Results 12/18/16 Blood Culture, Received Pending 12/18/16 Blood Culture, Received Pending 12/18/16 Urine Culture, Received Pending Diagnostic Radiology No acute findings on head CT Impression Assessment and Plan 66 y/o F w/Hx Seizure disorder, HPL, COPD, tobacco abuse, chronic back pain w/ high dose, opiate-dependence - became somnolent at home this evening prompting family to call the EMS service. She was barely responsive on arrival to the ER and gradually regained full consciousness over the course of 1-2 hours. She is known to be dependent on a high dose of narcotics and her family were concerned that she was taking more medications than usual recently. The pt confirmed that she needs to cut back on her opiate use when she regained her bearings. She denied SOB, CP, N/V or fevers prior to arrival. She did express that she was light headed and was slightly orthostatic initially. Labs were notable for a (+) UA. 1) Somnolence - likely opiate overdose - she does have a seizure disorder but no seizure activity was reported and she seems aware that she is overmedicating. The pt is placed on observation and we have cut back her opiate dose although it remains to be seen how she will tolerate this. We may have to treat any severe withdrawal with Benzodiazepines. Seroquel held pending AM reevaluation 2) Chronic pain - we can obtain a pain management consult if she remains in the hospital although she does have her own outpt specialist 3) UTI - asymptomatic without evidence of bacteremia - Levaquin pending culture results 4) Orthostasis - likely due to volume depletion - IVF provided 5) COPD - no evidence of acute exacerbation 6) Tobacco abuse - pt was duly reprimanded for continued use considering her underlying lung disease - should be assisted with cessation prior to D/C 7) Seizures - no recent reported - cont Lamictal - will check level Full code - Lovenox prophylaxis Total time for this admit including review of labs, meds, imaging - discussion with pt/family and ER attending - 34 min Level of Care Telemetry Advanced Directives Existing Living Will: No Existing Power of Cell Tender: No Resuscitation Status FULL RESUSCITATION VTE Prophylaxis VTE Risk Assessment Done? Y/N: Yes Risk Level: Moderate Given or contraindicated: Enoxaparin (Lovenox)SQ
[2016-12-19 03:59] VITALS: BP 114/73; PULSE 75; TEMP 36.8; O2SAT 95
[2016-12-19] MEDS ORDERED: SODIUM CHLORIDE 0.9% 1000ML 1,000 ML IV ONE (05:00)
[2016-12-19 07:53] VITALS: BP 125/66; PULSE 78; TEMP 37; O2SAT 94
[2016-12-19] MEDS: FAMOTIDINE 20 MG TAB PO SCH (08:25)
[2016-12-19] MEDS: CLOPIDOGREL BISULFATE 75 MG TAB PO SCH (08:25)
[2016-12-19] MEDS: BACLOFEN 10 MG TAB PO SCH ×3 (08:25→20:49)
[2016-12-19] MEDS: LOSARTAN POTASSIUM 50 MG TAB PO SCH (08:25)
[2016-12-19] MEDS: MoRPHine SULFATE CR 15 MG TAB (MS CONTIN) PO SCH ×2 (08:25→18:17)
[2016-12-19] MEDS: TIOTROPIUM BROMIDE 5 PUFF/90 MCG INH INH SCH (08:26)
[2016-12-19] MEDS: BUDESONIDE/FORMOTEROL FUMARATE 160/4.5 60 PUFFS/INHALER INH SCH ×2 (08:26→20:49)
[2016-12-19] MEDS ORDERED: MORPHINE SULFATE 30 MG PO SCH (09:00)
--- NOTE | 2016-12-19 10:25 | Progress Note ---
Progress Note Date of Service Dec 19, 2016. Progress Note H&P reviewed. Patient feeling better today. She denies taking any benzos or pain meds the evening she was admitted. She only took her morning pain meds. She was tearful when told she'll need to stay one more night until cultures comes back. Eating well Vital Signs Date Time Temp Pulse Resp B/P Pulse Ox O2 Delivery O2 Flow Rate FiO2 12/19/16 07:53 37.0 78 20 125/66 94 Room Air Acetaminophen (Tylenol Tab) 650 mg Q4H PRN PO; Start 12/18/16 at 21:15; Stop at 21:14 Al Hydrox/Mg Hydrox/Simethicone (Maalox Max Susp) 15 ml Q4H PRN PO; Start at 21:15; Stop 01/17/17 at 21:14 Baclofen (Lioresal Tab) 10 mg TID PO Last administered on 12/19/16 08:25; Admin Dose 10 MG; Start 12/19/16 at 09:00; Stop 01/18/17 at 08:59 Budesonide/ Formoterol Fumarate (Symbicort 160/ 4.5 Inh) 2 puffs BID INH Last administered on 12/19/16 08:26; Admin Dose 2 PUFFS; Start 12/19/16 at 09:00; Stop 01/18/17 at 08:59 Clopidogrel Bisulfate (plAVix TAB) 75 mg DAILY PO Last administered on 12/19/16 08:25; Admin Dose 75 MG; Start 12/19/16 at 09:00; Stop 01/18/17 at 08:59 Enoxaparin Sodium (Lovenox Inj) 40 mg Q24H SC Last administered on 12/18/16 23: 21; Admin Dose 40 MG; Start 12/18/16 at 22:00; Stop 01/17/17 at 21:59 Famotidine (Pepcid Tab) 20 mg DAILY PO Last administered on 12/19/16 08:25; Admin Dose 20 MG; Start 12/19/16 at 09:00; Stop 01/18/17 at 08:59 Lamotrigine (Lamictal Tab) 150 mg BID PO Last administered on 12/19/16 08:25; Admin Dose 150 MG; Start 12/19/16 at 09:00; Stop 01/18/17 at 08:59 Levofloxacin (Consult) 1 ea UD PRN N/A; Start 12/18/16 at 23:15; Stop 01/17/17 at 23:14 Levofloxacin/Prmx (Levaquin / D5W/ Premixed D5W) 150 ml @ 100 mls/hr Q24H IV; Start 12/19/16 at 20:00; Stop 12/23/16 at 19:59 Lorazepam 0.5 mg 0.5 mg Q4H PRN IV; Start 12/18/16 at 21:30; Stop 01/17/17 at 21: 29 Lorazepam/Syringe (Ativan Inj/ Syringe) 1 ml @ 1 mls/min Q4H PRN IV; Start 12/18 at 21:30; Stop 01/17/17 at 21:29 Losartan Potassium (coZAAR TAB) 50 mg DAILY PO Last administered on 12/19/16 08: 25; Admin Dose 50 MG; Start 12/19/16 at 09:00; Stop 01/18/17 at 08:59 Magnesium Hydroxide (Milk Of Magnesia Susp) 30 ml Q12H PRN PO; Start 12/18/16 at 21:15; Stop 01/17/17 at 21:14 Meloxicam (Mobic Tab) 7.5 mg DAILY PRN PO; Start 12/18/16 at 21:15; Stop at 21:14 Miscellaneous (Iv Fluids Completed) 1 ea PRN PRN N/A Last administered on 09:49; Admin Dose 1 EA; Start 12/18/16 at 22:00; Stop 12/18/17 at 21:59 Miscellaneous Information 1 ea 1 ea QS N/A; Start 12/19/16 at 00:00; Stop at 00:00 Morphine Sulfate (Oramorph Sr Tab) 15 mg Q12H PO Last administered on 12/19/16 08:25; Admin Dose 15 MG; Start 12/19/16 at 07:00; Stop 01/02/17 at 06:59 Ondansetron HCl (Zofran Inj) 4 mg Q6H PRN IV Last administered on 12/18/16 23: 21; Admin Dose 4 MG; Start 12/18/16 at 21:15; Stop 01/17/17 at 21:14 Polyethylene (Miralax Powder Packet) 17 gm DAILY PRN PO; Start 12/18/16 at 21:15 ; Stop 01/17/17 at 21:14 Rosuvastatin Calcium (Crestor Tab) 5 mg HS PO; Start 12/19/16 at 21:00; Stop 01/18 at 20:59 Tiotropium [place] (Spiriva Handi[place]er Inhaler) 1 puff DAILY INH Last administered on 12/19/16t 08:26; Admin Dose 1 PUFF; Start 12/19/16 at 09:00; Stop 01/18/17 at 08:59 nad aox3 cn 2-12 grossly intact s1 s2 rrr ctab no w/r/r abd soft nt/nd +BS no LE edema AMS - unclear if medication related vs sepsis from UTI - CT head negative - abd ct as above - UA appears dirty with +nitrite, LE, and pyuria - on levaquin - culture pending
[2016-12-19 11:54] VITALS: BP 116/73; PULSE 68; TEMP 37.1; O2SAT 98
[2016-12-19 15:34] VITALS: BP 130/80; PULSE 71; TEMP 36.5; O2SAT 96
[2016-12-19] MEDS ORDERED: LEVOFLOXACIN / D5W 750 MG in PREMIXED IN D5W 150 ML IV SCH (20:00)
[2016-12-19 20:21] VITALS: BP 124/79; PULSE 56; TEMP 36.9; O2SAT 96
[2016-12-19] MEDS: ENOXAPARIN 40 MG/0.4 ML SYR SC SCH (20:53)
[2016-12-19] MEDS ORDERED: ROSUVASTATIN CALCIUM 5 MG TAB PO SCH (21:00)
[2016-12-20 00:11] VITALS: BP 120/73; PULSE 86; TEMP 37.1; O2SAT 94
[2016-12-20 03:52] VITALS: BP 149/80; PULSE 65; TEMP 37.1; O2SAT 98
[2016-12-20 07:20] VITALS: BP 133/83; PULSE 65; TEMP 36.8; O2SAT 96
[2016-12-20 07:49] LABS: CREATININE 0.52 mg/dl (0.60-1.20)
[2016-12-20] MEDS: MoRPHine SULFATE CR 15 MG TAB (MS CONTIN) PO SCH (08:13)
[2016-12-20] MEDS: TIOTROPIUM BROMIDE 5 PUFF/90 MCG INH INH SCH (08:14)
[2016-12-20] MEDS: BUDESONIDE/FORMOTEROL FUMARATE 160/4.5 60 PUFFS/INHALER INH SCH (08:14)
[2016-12-20] MEDS: FAMOTIDINE 20 MG TAB PO SCH (08:17)
[2016-12-20] MEDS: LOSARTAN POTASSIUM 50 MG TAB PO SCH (08:17)
[2016-12-20] MEDS: CLOPIDOGREL BISULFATE 75 MG TAB PO SCH (08:18)
[2016-12-20] MEDS: BACLOFEN 10 MG TAB PO SCH (08:18)
[2016-12-20 11:03] VITALS: BP 132/77; PULSE 69; TEMP 36.9; O2SAT 99
[2016-12-20] MEDS ORDERED: CEPH500C2 PO (11:22)
--- NOTE | 2016-12-20 11:30 | Discharge Instructions ---
Discharge Instructions Date of Service Dec 20, 2016. Admission Reason for Admission: Altered Mental Status, Opiate Or Related Narcotic Discharge Discharge Diagnosis / Problem: altered mental status, UTI Discharge Goals Goal(s): Improve function Activity Recommendations Activity Limitations: resume your previous activity . Instructions / Follow-Up Instructions / Follow-Up You had been treated in the hospital for altered mental status and lethargy. This is thought to be caused by urinary tract infection coupled with your pain medication The following changes/additions have been made to your medication list: -Keflex 500 mg by mouth 3 times daily for 7 days -Continue current pain regimen. PLEASE TAKE MEDICATIONS PRESCRIBED -please begin an over the counter stool softener such as colace (docusate sodium ) 100 mg tabs twice daily to prevent constipation Follow up with your pain doctor in the next 1-2 weeks Please also follow up with your primary care physician within one week. You should address your weight loss with Dr. Horn Call your doctor or return to the emergency department if you have any of the following symptoms: -Fever of 101F or greater -Persistent vomiting - Persistent diarrhea -Lethargy -Chest pain -Shortness of breath -severe dizziness -weakness on one side of your body Current Hospital Diet Patient's current hospital diet: AHA Diet (Heart Healthy) Discharge Diet Recommended Diet: Regular Diet Procedures Procedures Performed: CT head There is no hemorrhage, mass effect, or evidence of acute territorial ischemia by CT criteria. CT abdomen and pelvis 1. Significantly suboptimal examination without oral and IV contrast. The examination is also degraded by motion artifact. 2. No acute infectious or inflammatory findings are identified in the abdomen or pelvis. 3. Moderate to severe constipation. 4. Additional findings as above. Pending Studies Studies pending at discharge: no Laboratory Results Hemoglobin A1c Test 10/27/16 14:33 Range/Units Estimated Average Glucose 111 mg/dl Hemoglobin A1c 5.5 4.5-5.6 % Lipid Panel Test 10/27/16 14:33 Range/Units Triglycerides Level 67 0-150 mg/dl Cholesterol Level 114 0-200 mg/dl HDL Cholesterol 47 mg/dl Cholesterol/HDL Ratio 2.4 LDL Cholesterol, Calculated 54 mg/dl Medical Emergencies . Who to Call and When: Medical Emergencies: If at any time you feel your situation is an emergency, please call 911 immediately. . Non-Emergent Contact Non-Emergency issues call your: Primary Care Provider . . "Provider Documentation" section prepared by Tara Noonan. VTE Core Measure Inpt VTE Proph given/why not?: Enoxaparin (Lovenox)SQ
--- NOTE | 2016-12-20 11:50 | Discharge Summary ---
Discharge Summary Date of Service Dec 20, 2016. (Tara Noonan PA-C) Discharge Summary Admission Date: Dec 18, 2016 at 21:19 Discharge Date: Dec 20, 2016 Discharge Disposition: Home Principal Diagnosis: altered mental status, UTI, metabolic encephalopathy Problems/Secondary Diagnoses: Chronic pain syndrome Seizure disorder Depression COPD Immunizations: History of Tetanus Vaccine?: Unknown History of Pneumococcal: Unknown History of Hepatitis B Vaccine: Unknown Procedures: CT abd/pelvis 1. Significantly suboptimal examination without oral and IV contrast. The examination is also degraded by motion artifact. 2. No acute infectious or inflammatory findings are identified in the abdomen or pelvis. 3. Moderate to severe constipation. 4. Additional findings as above. CXR IMPRESSION: Advanced emphysema with no acute cardiopulmonary abnormality. CT Head IMPRESSION: There is no hemorrhage, mass effect, or evidence of acute territorial ischemia by CT criteria. (Tara Noonan PA-C) Medication Reconciliation New Medications: Cephalexin Monohydrate (Keflex) 500 Mg Cap 500 MG PO TID for 7 Days, #21 CAP Continued Medications: Baclofen (Lioresal) 10 Mg Tab 10 MG PO TID, #90 Biotin (Biotin 5000) 5 Mg Cap 1 CAP PO DAILY Budesonide/Formoterol Fumarate (Symbicort 160/4.5 Inhaler) 120 Puffs/ Aero 2 PUFFS INH BID, INHALER Clopidogrel Bisulfate (Plavix) 75 Mg Tab 75 MG PO DAILY, TAB Diphenhydramine Hcl (Benadryl Allergy) 25 Mg Tab 25 MG PO Q6 PRN for Ergocalciferol (Vitamin D) 50,000 Interunit Cap 1 CAP PO WK, #8 Famotidine (Pepcid) 20 Mg Tab 20 MG PO DAILY, #90 Hydrocodone/Acetaminophen 7.5MG/325MG ([place] 7.5MG/325MG) Tab 1 TAB PO TID PRN for Pain, TAB PRN PAIN Lamotrigine (Lamictal) 150 Mg Tab 150 MG PO BID, #60 Losartan Potassium (Losartan Potassium) 50 Mg Tab 50 MG PO SS, #90 Melatonin-Pyridoxine (Melatonin) 1 Tab Tab 10 MG PO HS Meloxicam (Mobic) 7.5 Mg Tab 7.5 MG PO DAILY PRN for Pain, #30 Morphine Sulfate (Morphine Sulfate Er) 30 Mg Tab 30 MG PO Q12, #60 Quetiapine Fumarate (Seroquel) 100 Mg Tab 100 MG PO HS, #30 Rosuvastatin Calcium (Crestor) 5 Mg Tab 5 MG PO HS, TAB Tiotropium [place] Monohydrate (Spiriva Respimat) 1.25 Mcg/Act Aer 2 PUFF INH DAILY, #4 Umeclidinium [place] (Incruse Ellipta) 62.5 Mcg/Inh Inh 1 PUFF INH DAILY, #30 Zinc (Zinc) 50 Mg Tab 50 TAB PO AMHS [Proair] () 90 MCG 2 PUFFS INH QID PRN for SOB/Wheezing Discontinued Medications: Levofloxacin (Levaquin) 750 Mg Tab 750 MG PO DAILY, #5 TAB Discharge Exam Pt says she feels like she is back to normal. She denies any weakness or headache. No fever or chills. She denies any dysuria or hematuria. Her back pain is at baseline. She denies any chest pain, shortness of breath, heart palpitations or dizziness. Review of Systems: Constitutional: No fever Cardiovascular: No chest pain Abdomen: No nausea Genitourinary - Female: No dysuria Physical Exam: General Appearance: no apparent distress Eyes: EOMI Neck: no JVD Respiratory/Chest: lungs clear Cardiovascular: regular rate, rhythm Abdomen / GI: normal bowel sounds, non tender, soft Extremities: no calf tenderness, no pedal edema Neurologic/Psychiatric: no motor/sensory deficits, oriented x 3 Skin: warm/dry (Tara Noonan, PALilianC) Hospital Course 66-year-old female brought to the emergency department with altered mental status likely secondary to high-dose narcotics on top of UTI causing metabolic encephalopathy. No narcan given Metabolic encephalopathy secondary to likely opiate overdose/UTI-back a baseline now. Gram + cocci growing in urine -Change Levaquin to Keflex 500 mg po TID for an additional 7 days -f/u PCP within one week -Discussed pain regimen at length with patient. Her pain regimen has not changed for many years. She reports taking her medications correctly. -Continue outpatient regimen: Morphine sulfate ER 30 mg po BID, [place] 7.5/325 mg tabs 1 po q 4 hrs for breakthrough -f/u in pain clinic as scheduled this month Orthostasis - likely due to volume depletion-improved with IVF COPD - no evidence of acute exacerbation -Continue outpt regimen breo, ellipta, prn albuterol, symbicort, spiriva Tobacco abuse -Cessation encouraged Seizures - no recent reported -Continue Lamictal -Level pending Weight loss -Discussed with PCP. Patient is scheduled for a colonoscopy -TSH WNL DVT prophylaxis -Ambulation -TEDS, SCDs CODE STATUS -LEVEL I FULL CODE Total Time Spent: Greater than 30 minutes This includes examination of the patient, discharge planning, medication reconciliation, and communication with other providers. (Tara Noonan PA-C) NHAN Physician Supervision Note: I interviewed and examined the patient. Discussed with Tara Noonan PAC and agree with findings and plan as documented in the note. Any exceptions or clarifications are listed here: None Pt is stable for discharge labs and chart reviewed Pt is awake, alert oriented and ambulated in room consider metabolic encephalopathy from uti poa, and toxic encephalopathy from medications taken at home Documented By: Efren Fisher (Efren Fisher M.D.) Discharge Instructions Please refer to the electronic Patient Visit Report (Discharge Instructions) for additional information. (Tara Noonan PA-C) Follow-Up PCP 1 week pain management in 1-2 weeks (Tara Noonan PA-C) Additional Copies To Rivas Horn M.D.
[2016-12-20 11:58] VITALS: BP 132/77; PULSE 69; TEMP 36.9; O2SAT 99
[2016-12-22 11:11] LABS: COD UR NEGATIVE NG/ML (CUTOFF=50); HYDROCOD UR 2270 NG/ML (CUTOFF=50); HYDROMOR UR 166 NG/ML (CUTOFF=50); MORPHINE UR 5520 NG/ML (CUTOFF=50); NORHYDROCODONE CONF UR 5280 NG/ML (CUTOFF=50); OXYMORPH UR NEGATIVE NG/ML (CUTOFF=50)
[2017-02-06] MEDS ORDERED: TIOT1AER2 INH (14:41)
[2017-02-06] MEDS ORDERED: NCDT21 TOP (14:41)
[2017-02-06] MEDS ORDERED: PRED10TA PO (14:41)
[2017-02-06] MEDS ORDERED: CEFD300C2 PO (14:41)
[2017-02-06] MEDS ORDERED: POTTAB2 PO (14:41)
[2017-02-06] MEDS ORDERED: ADVIN25/60 INH (14:41)
[2017-02-06] MEDS ORDERED: GFNSR600 PO (14:41)
[2017-02-15] MEDS ORDERED: TIOT1AER2 INH (16:00)
[2017-02-15] MEDS ORDERED: LACT10SO17 PO (16:00)
[2017-02-15] MEDS ORDERED: UMEC1INH INH (16:00)
[2017-02-15] MEDS ORDERED: LAMO150T32 PO (16:00)
[2017-02-15] MEDS ORDERED: VTMD PO (16:00)
[2017-02-15] MEDS ORDERED: SYMIN160 INH (16:00)
[2017-02-15] MEDS ORDERED: ONDA4TAB46 PO (16:00)
[2017-02-15] MEDS ORDERED: MELA1TAB3 PO (16:00)
[2017-02-15] MEDS ORDERED: LOSA50TA6 PO (16:00)
== END 2016-12-20 13:31 | disposition home or self-care (01) ==
LOC: ENRESERVDT → ENRESERVTM → EDBD 19:02 → C.EDC 19:03 → C.2T 21:19
PROVIDERS: ADMIT Internal Medicine; ATTEND Internal Medicine
DX: R41.82 Altered mental status, unspecified (principal); N39.0 Urinary tract infection, site not specified; G93.41 Metabolic encephalopathy; T40.2X5A Adverse effect of other opioids, initial encounter; G89.4 Chronic pain syndrome; G40.909 Epilepsy, unspecified, not intractable, without status epilepticus; F32.9 Major depressive disorder, single episode, unspecified; E11.9 Type 2 diabetes mellitus without complications; I10 Essential (primary) hypertension; F17.200 Nicotine dependence, unspecified, uncomplicated; J44.9 Chronic obstructive pulmonary disease, unspecified; E78.5 Hyperlipidemia, unspecified; M47.896 Other spondylosis, lumbar region; M96.1 Postlaminectomy syndrome, not elsewhere classified; E66.01 Morbid (severe) obesity due to excess calories; Z86.73 Personal history of transient ischemic attack (TIA), and cerebral infarction without residual deficits; Z83.6 Family history of other diseases of the respiratory system

== ENCOUNTER → 2017-01-20 | Outpatient (CLI) | payer OTHER ==
[~2017-01-20] MED LIST changes: +ADVIN25/60 INH; +ALBINS/ INH; +ALBU18002 INH; -ALBU1AER9 INH; +BACL10TA PO; -CARB200T PO; +CEFD300C2 PO; +CZR50 PO; +DIPH1TAB87 PO; -DIPH25CA37 PO; -DOXE25CA2 PO; +FAMO20TA9 PO; +GFNSR600 PO; +LACT10SO17 PO; +LAMO150T32 PO; +LCTL30 PO; +LOSA50TA6 PO; +MELA1TAB22 PO; +MELA1TAB3 PO; +MELO7.5T5 PO; +MORP1TAB12 PO; -MORP30TA23 PO; +NCDT21 TOP; +ONDA4TAB46 PO; +OPTIRAY 320 IV PRN; +POTTAB2 PO; +PRED10TA PO; +PROAIR INH; +QUET1TAB34 PO; -SERT1TAB68 PO; +TIOT1AER2 INH; -TOPI200T14 PO; +UMEC1INH INH; +VTMD PO; +ZINC1TAB4 PO; -ZOLP10TA6 PO
--- NOTE | 2017-01-20 15:53 | DIAGNOSTIC IMAGING REPORT ---
CT OF THE CHEST WITH IV CONTRAST CLINICAL HISTORY: Weight loss. Smoker. Shortness of breath. COMPARISON STUDY: Chest CT January 21, 2016 and chest radiograph December 18, 2016. TECHNIQUE: Following IV administration of 94 mL of Optiray-320, helical axial images of the chest were obtained. Images were viewed in the axial, sagittal and coronal planes. IV contrast was administered without complication. CT DOSE: 206.82 mGycm FINDINGS: No enlarged axillary, mediastinal or hilar lymph nodes are present. The heart is mildly enlarged. There is extensive coronary artery calcification. There is no pericardial effusion. There is multifocal occlusion within the right middle lobe and right lower lobe bronchi likely due to mucoid impaction. There are few occluded left lower lobe segmental bronchi. There is moderate to severe emphysema. No areas of consolidation are identified to suggest pneumonia. Groundglass opacities reflect atelectasis. There are no pulmonary nodules. There are several segmental pulmonary emboli within the right upper lobe. No central pulmonary emboli are present. There is no subtle pulmonary. The bony thorax and upper abdomen are unremarkable. IMPRESSION: 1. Several small segmental pulmonary emboli within the right upper lobe. Discussed with Ivelisse Tucker at time of dictation. 2. Moderate to severe emphysema. 3. Multifocal mucoid impaction within the right middle and bilateral lower lobes. 4. No suspicious pulmonary nodules. Electronically signed by: Alan Green M.D. 01/20/2017 3:51 PM Dictated Date/Time: 01/20/2017 2:51 PM
== END | disposition home or self-care (01) ==
LOC: C.CTS 13:49
PROVIDERS: ATTEND Physician Assistant Medical
DX: R63.4 Abnormal weight loss (principal); Z87.891 Personal history of nicotine dependence; E27.9 Disorder of adrenal gland, unspecified; I26.99 Other pulmonary embolism without acute cor pulmonale; J43.9 Emphysema, unspecified

== ENCOUNTER → 2017-01-24 | Outpatient (CLI) | payer OTHER ==
[~2017-01-24] MED LIST changes: -OPTIRAY 320 IV PRN
--- NOTE | 2017-01-24 09:57 | DIAGNOSTIC IMAGING REPORT ---
BILATERAL LOWER EXTREMITY VENOUS DOPPLER CLINICAL HISTORY: Pulmonary emboli. COMPARISON STUDY: No previous studies for comparison. TECHNIQUE: Sonography of the deep venous system of the bilateral lower extremities was performed. Compression and augmentation were evaluated. FINDINGS: The common femoral, superficial femoral and popliteal veins were compressible. Augmentation was normal. Flow was shown within the deep calf vessels. IMPRESSION: No evidence of deep venous thrombus within the bilateral lower extremities. Electronically signed by: Alan Green M.D. 01/24/2017 9:54 AM Dictated Date/Time: 01/24/2017 9:52 AM
== END | disposition home or self-care (01) ==
LOC: C.ULTRBC 09:16
PROVIDERS: ATTEND Physician Assistant Medical
DX: I26.99 Other pulmonary embolism without acute cor pulmonale (principal)

== ENCOUNTER 2017-02-01 06:35 | Inpatient (IN) | payer OTHER ==
[~2017-02-01] VITALS: Ht 152.4 cm; Wt 65.9 kg
[2017-02-01] VITALS (8 sets, daily range): BP systolic 95–144; BP diastolic 60–67; PULSE 78–96; TEMP 36.8–37.8; O2SAT 90–97; Ht 152.4 cm; Wt 65.9 kg
[~2017-02-01 06:35] MED LIST changes: -ADVIN25/60 INH; -ALBINS/ INH; -ALBU18002 INH; -CEFD300C2 PO; -CLON1TAB3 PO; -GFNSR600 PO; -LACT10SO17 PO; -LCTL30 PO; -LOSA50TA6 PO; -MELA1TAB3 PO; -NCDT21 TOP; -ONDA4TAB46 PO; -POTTAB2 PO; -PRED10TA PO; -ZINC1TAB4 PO
[2017-02-01] MEDS ORDERED: ONDANSETRON INJ 2 MG/ML 2 ML VIAL IV STA (07:22)
[2017-02-01] MEDS ORDERED: SODIUM CHLORIDE 0.9% 1000ML 1,000 ML IV ONE ×2 (07:30→08:45)
[2017-02-01 07:42] LABS: BASO % 0.1 %; BASO ABS # 0.01 K/uL (0-0.2); COMPLETE YES; IG% 0.2 %; LYMPH ABS # 1.33 K/uL (1.2-3.4); MEAN CELL VOLUME 97.4 fL (80-100); MEAN CORPUSCULAR HEMOGLOBIN 34.6 pg (25-34); MEAN CORPUSCULAR HGB CONC 35.5 g/dl (32-36); MEAN PLATELET VOLUME 9.1 fL (7.4-10.4); MONO % 6.6 %; NEUT % 86.1 %; PLATELET COUNT 303 K/uL (130-400); WHITE BLOOD COUNT 18.89 K/uL (4.8-10.8)
[2017-02-01 07:43] LABS: INR 1.1 (0.9-1.1); PARTIAL THROMBOPLASTIN RATIO 1.1; PROTHROMBIN TIME (PATIENT) 11.9 SECONDS (9.0-12.0)
[2017-02-01] MEDS ORDERED: CLON1TAB3 PO (07:47)
[2017-02-01] MEDS ORDERED: ALBU18002 INH (07:47)
[2017-02-01] MEDS ORDERED: ALBINS/ INH (07:47)
[2017-02-01] MEDS ORDERED: LCTL30 PO (07:47)
[2017-02-01] MEDS ORDERED: ZINC1TAB4 PO (07:47)
[2017-02-01 07:54] LABS: ALT/SGPT 18 U/L (12-78); AST/SGOT 16 U/L (15-37); BLOOD UREA NITROGEN 10 mg/dl (7-18); BUN/CREATININE RATIO 16.8 (10-20); CALCIUM 8.7 mg/dl (8.5-10.1); CARBON DIOXIDE 25 mmol/L (21-32); CHLORIDE 104 mmol/L (98-107); CREATININE 0.61 mg/dl (0.60-1.20); GLUCOSE 126 mg/dl (70-99); MAGNESIUM 2.1 mg/dl (1.8-2.4); POTASSIUM 3.4 mmol/L (3.5-5.1); SODIUM 139 mmol/L (136-145)
[2017-02-01 08:05] LABS: URINE APPEARANCE CLEAR (CLEAR); URINE BILIRUBIN NEG (NEG); URINE COLOR DK YELLOW; URINE NITRITE NEG (NEG); URINE PH 6.5 (4.5-7.5); URINE SPECIFIC GRAVITY 1.019 (1.000-1.030); UROBILINOGEN NEG (NEG); ZZURINE CULT IF INDIC CATH NO
[2017-02-01 08:05] LABS: ALB/GLOB RATIO 0.9 (0.9-2); ALKALINE PHOSPHATASE 70 U/L (45-117); THYROID STIMULATING HORMONE 0.523 uIu/ml (0.300-4.500)
[2017-02-01 08:07] LABS: MANUAL MICROSCOPIC REQUIRED? NO; REVIEW REQ? NO
--- NOTE | 2017-02-01 08:36 | DIAGNOSTIC IMAGING REPORT ---
KUB CLINICAL HISTORY: vomiting nausea and COMPARISON STUDY: No previous studies for comparison. FINDINGS: The soft tissues, psoas shadows, renal outlines and intestinal gas pattern appear normal. There is no evidence for bowel obstruction. No abnormal abdominal calcifications are seen. IMPRESSION: Normal study. Electronically signed by: Yariel Smith M.D. 02/01/2017 8:34 AM Dictated Date/Time: 02/01/2017 8:33 AM
[2017-02-01] MEDS ORDERED: KETOROLAC TROMETHAMINE 30 MG/ML VIAL IV STA (08:38)
[2017-02-01] MEDS ORDERED: ACETAMINOPHEN 500 MG TAB PO STA (08:38)
--- NOTE | 2017-02-01 08:40 | DIAGNOSTIC IMAGING REPORT ---
CHEST 2 VIEWS ROUTINE HISTORY: Fatigue. Cough COMPARISON: Chest 12/18/2016. Chest CT 01/20/2017. FINDINGS: Right mid to lower lung zone opacification has developed. No pneumothorax. No pleural effusions. The heart is normal in size. Cervical spinal fusion hardware. IMPRESSION: Interval development of right lung airspace opacities likely representing a pneumonia. Recommend follow-up to resolution Electronically signed by: Raad Bowers M.D. 02/01/2017 8:38 AM Dictated Date/Time: 02/01/2017 8:33 AM
[2017-02-01] MEDS ORDERED: ALBUT/IPRATROP 3MG/0.5MG NEB 3 ML VIAL INH ONE (08:45)
[2017-02-01] MEDS ORDERED: LEVAQUIN 750MG / 150ML D5W IV ONE (08:45)
[2017-02-01] MEDS ORDERED: AZTREONAM IV 2,000 MG in DEXTROSE 5% 100ML 100 ML IV ONE (08:45)
[2017-02-01] MEDS ORDERED: CLONAZEPAM 1 MG TAB PO PRN (10:00)
[2017-02-01] MEDS ORDERED: ONDANSETRON INJ 2 MG/ML 2 ML VIAL IV PRN (10:00)
[2017-02-01] MEDS ORDERED: ALBUT/IPRATROP 3MG/0.5MG NEB 3 ML VIAL INH PRN (11:30)
--- NOTE | 2017-02-01 11:35 | History and Physical ---
History & Physical Date & Time of Service: Feb 01, 2017 at 11:14 Chief Complaint: Pneumonia, Sepsis Primary Care Physician: Rivas Horn M.D. History of Present Illness Source: patient, family, hospital records 66 yo female with history of COPD and chronic back pain, presented to the ED c/ o 4-5 days of weakness, lethargy, poor appetite and productive cough. Her cough started a few days ago, productive of dark yellow/brown sputum, occasionally some bloody streaks. She typically has a dry cough with her COPD so the sputum is a new change. She admits to feeling more short of breath, especially if she tries to walk. For the most part she has been sleeping. Very little appetite and not drinking enough water according to family. She has had a fever, chills and night sweats. She is concerned about weight loss over the past few months, says she used to weigh 210 pounds and now she is closer to 120-130 pounds. She has not been trying to lose weight. In the ED she had a fever, tachypnea, leukocytosis and a CXR showed a right lower lobe infiltrate. Given Levaquin and Aztreonam and nebulizer treatment. She has been compliant with her medications, specifically her inhalers. She takes Morphine for back pain and would like to try to stop. Her family is concerned with her needing pain medications. She continues to smoke 1 ppd despite feeling ill and having a productive cough. I asked about her penicillin allergy, she reports it was a rash and she thinks she tolerated Keflex in the past. Past Medical/Surgical History Medical Problems: (1) Chronic obstructive lung disease Status: Chronic (2) DEPRESSIVE DISORDER NEC Status: Chronic (3) EPILEPSY UNSPEC W/O MENTION INTRACTABLE EPILEPSY Status: Chronic (4) HYPERLIPIDEMIA NEC/NOS Status: Chronic (5) HYPERTENSION NOS Status: Chronic (6) LUMBOSACRAL SPONDYLOSIS Status: Chronic (7) MORBID OBESITY Status: Chronic (8) POSTLAMINECT SYND-LUMBAR Status: Chronic (9) REFLEX SYMPATHETIC DYSTROPHY NOS Status: Chronic (10) TOBACCO USE DISORDER Status: Chronic Family History Father from emphysema Mother from cancer, she is not sure of the type Social History Smoking Status: Current Every Day Smoker (1/2 - 1 ppd) Smokeless Tobacco Use: No Alcohol Use: none Drug Use: none Marital Status: Housing status: lives with family Occupational Status: unemployed, disabled Immunizations History of Tetanus Vaccine?: Unknown History of Pneumococcal: Unknown History of Hepatitis B Vaccine: Unknown Multi-Drug Resistant Organisms History of MDRO: No Allergies Coded Allergies: Penicillins (Verified Allergy, Unknown, 02/01/17) PATIENT IS NOT ALLERGIC TO PCN - HAS BEEN ON KEFLEX BEFORE PER DR. VALLE - ONLY NAUSEA Home Medications Scheduled Albuterol Sulf (Proventil 0.083% 2.5MG/3ML), 2.5 MG INH QID Biotin (Biotin 5000), 5,000 MCG PO DAILY Budesonide/Formoterol Fumarate (Symbicort 160/4.5 Inhaler), 2 PUFFS INH BID Clopidogrel Bisulfate (Plavix), 75 MG PO DAILY Ergocalciferol (Vitamin D), 1 CAP PO WK Famotidine (Pepcid), 20 MG PO DAILY Lactulose (Lactulose), 15-30 ML PO DAILY Lamotrigine (Lamictal), 150 MG PO BID Losartan Potassium (Losartan Potassium), 25 MG PO DAILY Melatonin-Pyridoxine (Melatonin), 10 MG PO HS Morphine Sulfate (Morphine Sulfate Er), 30 MG PO Q12 Quetiapine Fumarate (Seroquel), 100 MG PO HS Rosuvastatin Calcium (Crestor), 5 MG PO HS Tiotropium [place] Monohydrate (Spiriva Respimat), 2 PUFF INH DAILY Umeclidinium [place] (Incruse Ellipta), 1 PUFF INH DAILY Zinc Gluconate (Zinc), 100 MG PO DAILY Scheduled PRN Baclofen (Lioresal), 10 MG PO TID PRN for Muscle Spasms Clonazepam (Klonopin), 1 MG PO QPM PRN for Anxiety and/or Sedation Diphenhydramine Hcl (Benadryl Allergy), 25 MG PO Q6 PRN for Hydrocodone/Acetaminophen 7.5MG/325MG ([place] 7.5MG/325MG), 1 TAB PO TID PRN for Pain Meloxicam (Mobic), 7.5 MG PO DAILY PRN for Pain Miscellaneous Medications Albuterol Sulfate (Proair Respiclick) Review of Systems Constitutional: + chills, + fatigue, + fever, + sweats, + weakness, + weight loss Eyes: No diplopia, No discharge, No eye pain, No problem reported, No redness, No worsening of vision ENT: No dental problems, No hearing loss, No nasal symptoms, No problem reported, No sore throat, No tinnitus, No trouble swallowing, No unusual epistaxis Respiratory: + cough, + dyspnea at rest, + dyspnea on exertion, + hemoptysis ( streaks of blood in mucous), + shortness of breath, + sputum, No wheezing Cardiovascular: No PND, No chest pain, No claudication, No edema, No orthopnea , No palpitations, No problem reported Abdomen: + problem reported (poor appetite), No GI bleeding, No constipation, No diarrhea, No nausea, No pain, No vomiting Musculoskeletal: + joint pain (back), No calf pain, No muscle pain, No problem reported, No swelling Genitourinary - Female: No dysuria, No hematuria, No urinary frequency, No urinary incontinence, No urinary retention, No urinary urgency Neurologic: + weakness, No balance problems, No memory loss, No numbness/ tingling, No paralysis, No vertigo Psychiatric: + depression symptoms, No anhedonism, No anxiety, No insomnia, No problem reported, No substance abuse Endocrine: + fatigue, No excessive thirst, No excessive urination, No problem reported Hematologic / Lymphatic: No abnormal bleeding/bruising, No clotting problems, No night sweats, No problem reported, No swollen lymph nodes Integumentary: No bleeding, No color change, No itch, No new/changing skin lesions, No problem reported, No rash Physical Exam Vital Signs Date Time Temp Pulse Resp B/P Pulse Ox O2 Delivery O2 Flow Rate FiO2 02/01/17 10:49 37.0 91 36 116/66 93 02/01/17 10:41 91 Room Air 02/01/17 08:41 38.7 90 36 141/77 91 Room Air 02/01/17 07:12 90 02/01/17 06:41 37.7 92 20 127/80 97 Room Air General Appearance: no apparent distress, + thin, + pertinent finding (appears older than stated age) Head: normocephalic, atraumatic Eyes: normal inspection, EOMI, sclerae normal ENT: normal ENT inspection, hearing grossly normal, pharynx normal Neck: supple, no adenopathy, no JVD, trachea midline Respiratory/Chest: chest non-tender, no respiratory distress, no accessory muscle use, + crackles (right base, no wheezing) Cardiovascular: regular rate, rhythm, no edema, no gallop, no JVD, no murmur, normal peripheral pulses Abdomen/GI: normal bowel sounds, non tender, soft, no organomegaly Back: normal inspection, no CVA tenderness, no muscle spasm, normal range of motion Extremities/Musculoskelatal: normal inspection, no calf tenderness, normal capillary refill, no pedal edema, normal range of motion, pelvis stable Neurologic/Psych: 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, alert, normal mood/affect, normal reflexes, oriented x 3, + motor weakness (generalized) Skin: normal color, warm/dry, no rash Diagnostics Laboratory Results Results Past 24 Hours Test 02/01/17 07:00 02/01/17 07:45 02/01/17 08:14 Range/Units White Blood Count 18.89 4.8-10.8 K/uL Red Blood Count 3.90 4.2-5.4 M/uL Hemoglobin 13.5 12.0-16.0 g/dL Hematocrit 38.0 37-47 % Mean Corpuscular Volume 97.4 80-100 fL Mean Corpuscular Hemoglobin 34.6 25-34 pg Mean Corpuscular Hemoglobin Concent 35.5 32-36 g/dl Platelet Count 303 130-400 K/uL Mean Platelet Volume 9.1 7.4-10.4 fL Neutrophils (%) (Auto) 86.1 % Lymphocytes (%) (Auto) 7.0 % Monocytes (%) (Auto) 6.6 % Eosinophils (%) (Auto) 0.0 % Basophils (%) (Auto) 0.1 % Neutrophils # (Auto) 16.27 1.4-6.5 K/uL Lymphocytes # (Auto) 1.33 1.2-3.4 K/uL Monocytes # (Auto) 1.24 0.11-0.59 K/uL Eosinophils # (Auto) 0.00 0-0.5 K/uL Basophils # (Auto) 0.01 0-0.2 K/uL RDW Standard Deviation 51.5 36.4-46.3 fL RDW Coefficient of Variation 14.4 11.5-14.5 % Immature Granulocyte % (Auto) 0.2 % Immature Granulocyte # (Auto) 0.04 0.00-0.02 K/uL Prothrombin Time 11.9 9.0-12.0 SECONDS Prothromb Time International Ratio 1.1 0.9-1.1 Activated Partial Thromboplast Time 27.3 21.0-31.0 SECONDS Partial Thromboplastin Ratio 1.1 Sodium Level 139 136-145 mmol/L Potassium Level 3.4 3.5-5.1 mmol/L Chloride Level 104 98-107 mmol/L Carbon Dioxide Level 25 21-32 mmol/L Anion Gap 10.0 3-11 mmol/L Blood Urea Nitrogen 10 7-18 mg/dl Creatinine 0.61 0.60-1.20 mg/dl Est Creatinine Clear Calc Drug Dose 70.6 ml/min Estimated GFR () 109.5 Estimated GFR (Non- 94.5 BUN/Creatinine Ratio 16.8 10-20 Random Glucose 126 70-99 mg/dl Calcium Level 8.7 8.5-10.1 mg/dl Magnesium Level 2.1 1.8-2.4 mg/dl Total Bilirubin 0.7 0.2-1 mg/dl Aspartate Amino Transf (AST/SGOT) 16 15-37 U/L Alanine Aminotransferase (ALT/SGPT) 18 12-78 U/L Alkaline Phosphatase 70 45-117 U/L Troponin I < 0.015 0-0.045 ng/ml Total Protein 6.8 6.4-8.2 gm/dl Albumin 3.2 3.4-5.0 gm/dl Globulin 3.6 2.5-4.0 gm/dl Albumin/Globulin Ratio 0.9 0.9-2 Lipase 64 73-393 U/L Thyroid Stimulating Hormone (TSH) 0.523 0.300-4.500 uIu/ml Urine Color DK YELLOW Urine Appearance CLEAR CLEAR Urine pH 6.5 4.5-7.5 Urine Specific [place] 1.019 1.000-1.030 Urine Protein NEG NEG Urine Glucose (UA) NEG NEG Urine Ketones 1+ NEG Urine Occult Blood NEG NEG Urine Nitrite NEG NEG Urine Bilirubin NEG NEG Urine Urobilinogen NEG NEG Urine Leukocyte Esterase NEG NEG Lactic Acid Level 1.3 0.4-2.0 mmol/L Microbiology Results 02/01/17 Blood Culture, Received Pending 02/01/17 Blood Culture, Received Pending Diagnostic Radiology CHEST 2 VIEWS ROUTINE HISTORY: Fatigue. Cough COMPARISON: Chest 12/18/2016. Chest CT 01/20/2017. FINDINGS: Right mid to lower lung zone opacification has developed. No pneumothorax. No pleural effusions. The heart is normal in size. Cervical spinal fusion hardware. IMPRESSION: Interval development of right lung airspace opacities likely representing a pneumonia. Recommend follow-up to resolution KUB CLINICAL HISTORY: vomiting nausea and COMPARISON STUDY: No previous studies for comparison. FINDINGS: The soft tissues, psoas shadows, renal outlines and intestinal gas pattern appear normal. There is no evidence for bowel obstruction. No abnormal abdominal calcifications are seen. IMPRESSION: Normal study. EKG sinus with 1st degree AV block Impression Assessment and Plan 66 yo female with history of COPD and chronic pain, presents with right sided pneumonia and sepsis - Sepsis secondary to right sided pneumonia: treat like HCAP since she was hospitalized in December 2016 she has leukocytosis and elevated RR, source is right sided infiltrate Levaquin and Cefepime IV, 5-7 days total NSS + 20mEq of K at 100cc/hr blood cultures, check urine Legionella and Mycoplasma nebulizers - Hypokalemia: replace in maintenance fluids - COPD: no wheezing on exam, moving adequate air, no signs of COPD exacerbation no steroids at this time, just utilize nebulizers and maintenance inhalers - Dehydration: IV fluids, stop once eating and drinking improved - Weight loss: review of prior CT chest and CT abdomen/pelvis in December/January 2017 shows no masses she had mucoid impaction of right middle and both lower lobes on CT chest also noted small, scattered right upper lobe PE, old as of right now no clear cut reason for weight loss, should continue to work up outpatient was supposed to be scheduled for colonoscopy as of last discharge summary - Chronic back pain: continue Morphine PO - Tobacco abuse: discussed importance of cessation, especially with COPD will provide Nicotine patch - DVT prophylaxis: Lovenox Level of Care Telemetry Advanced Directives Existing Living Will: No Existing Power of Field Service Poultry Technician: No Resuscitation Status FULL RESUSCITATION VTE Prophylaxis VTE Risk Assessment Done? Y/N: Yes Risk Level: Moderate Given or contraindicated: Enoxaparin (Lovenox)SQ Additional Copies To Rivas Horn M.D.
[2017-02-01] MEDS: ALBUT/IPRATROP 3MG/0.5MG NEB 3 ML VIAL INH SCH ×3 (12:03→19:32)
[2017-02-01] MEDS: NSS + 20MEQ KCL 1000ML 1,000 ML IV SCH ×2 (13:24→22:02)
[2017-02-01] MEDS: CEFEPIME IV 1,000 MG in DEXTROSE 5% 100ML 100 ML IV SCH (13:25)
[2017-02-01] MEDS: HEPARIN SOD 5000 UNIT/0.5 ML CARP SQ SCH ×2 (13:25→21:07)
--- NOTE | 2017-02-01 16:07 | EMERGENCY ROOM VISIT NOTE ---
History First contact with patient: 07:02 Chief Complaint: ILLNESS Stated Complaint: PNEUMONIA, SEPSIS History of Present Illness The patient is a 66 year old female who presents to the Emergency Room with complaints of weakness and fatigue worsening over the past 3-4 days. The patient has a long-standing history of COPD and is a tobacco user. She is coming by her family who provide much of the history. The family indicates the patient has not been getting out of bed and has not been eating or drinking well. They believe that she had a fever, but are unsure how high this may have been. Patient has been admitted to this facility multiple times for COPD exacerbations. She does have severe COPD. She states that she has had some mucoid sputum and brown sputum. She does not have distinct chest pain. She has chronic shortness of breath which is not different from normal. No recent travel history or lower extremity swelling. She rates her discomfort a 6/10. Review of Systems More than 10 systems were reviewed and otherwise negative with the exception of history of present illness. 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 (12) Sepsis (13) TOBACCO USE DISORDER Family History Lung disease Social History Smoking Status: Current Every Day Smoker (1/2 - 1 ppd) Smokeless Tobacco Use: No Alcohol Use: none Drug Use: none Marital Status: Housing Status: lives with family Occupation Status: unemployed, disabled Current/Historical Medications Scheduled Albuterol Sulf (Proventil 0.083% 2.5MG/3ML), 2.5 MG INH QID Biotin (Biotin 5000), 5,000 MCG PO DAILY Budesonide/Formoterol Fumarate (Symbicort 160/4.5 Inhaler), 2 PUFFS INH BID Clopidogrel Bisulfate (Plavix), 75 MG PO DAILY Ergocalciferol (Vitamin D), 1 CAP PO WK Famotidine (Pepcid), 20 MG PO DAILY Lactulose (Lactulose), 15-30 ML PO DAILY Lamotrigine (Lamictal), 150 MG PO BID Losartan Potassium (Losartan Potassium), 25 MG PO DAILY Melatonin-Pyridoxine (Melatonin), 10 MG PO HS Morphine Sulfate (Morphine Sulfate Er), 30 MG PO Q12 Quetiapine Fumarate (Seroquel), 100 MG PO HS Rosuvastatin Calcium (Crestor), 5 MG PO HS Tiotropium [place] Monohydrate (Spiriva Respimat), 2 PUFF INH DAILY Umeclidinium [place] (Incruse Ellipta), 1 PUFF INH DAILY Zinc Gluconate (Zinc), 100 MG PO DAILY Scheduled PRN Baclofen (Lioresal), 10 MG PO TID PRN for Muscle Spasms Clonazepam (Klonopin), 1 MG PO QPM PRN for Anxiety and/or Sedation Diphenhydramine Hcl (Benadryl Allergy), 25 MG PO Q6 PRN for Hydrocodone/Acetaminophen 7.5MG/325MG ([place] 7.5MG/325MG), 1 TAB PO TID PRN for Pain Meloxicam (Mobic), 7.5 MG PO DAILY PRN for Pain Miscellaneous Medications Albuterol Sulfate (Proair Respiclick) Allergies Coded Allergies: Penicillins (Verified Allergy, Unknown, 02/01/17) PATIENT IS NOT ALLERGIC TO PCN - HAS BEEN ON KEFLEX BEFORE PER DR. VALLE - ONLY NAUSEA Physical Exam Vital Signs Date Time Temp Pulse Resp B/P Pulse Ox O2 Delivery O2 Flow Rate FiO2 02/01/17 08:41 38.7 90 36 141/77 91 Room Air 02/01/17 07:12 90 02/01/17 06:41 37.7 92 20 127/80 97 Room Air Pain Rating (0-10): 3.0 Physical Exam VITALS: Vitals are noted on the nurse's note and reviewed by myself. Vital signs stable. GENERAL: White female who appears older than her stated age. She appears fatigued and answers questions very slowly. HEAD: Normocephalic atraumatic. HEART: Regular rate and rhythm without murmurs gallops or rubs. LUNGS: Coarse breath sounds throughout with right lower crackles ABDOMEN: Positive normal bowel sounds x 4. Soft, nontender, without masses or organomegaly. No guarding or rebound tenderness. MUSCULOSKELETAL: No muscle atrophy, erythema, or edema noted. Full range of motion without joint tenderness in all extremities. NEURO: Patient was alert and oriented to person place and time. CN II through XII grossly intact. Medical Decision & Procedures ER Provider Diagnostic Interpretation: CHEST 2 VIEWS ROUTINE HISTORY: Fatigue. Cough COMPARISON: Chest 12/18/2016. Chest CT 01/20/2017. FINDINGS: Right mid to lower lung zone opacification has developed. No pneumothorax. No pleural effusions. The heart is normal in size. Cervical spinal fusion hardware. IMPRESSION: Interval development of right lung airspace opacities likely representing a pneumonia. Recommend follow-up to resolution [~ rep ct add3]] KUB CLINICAL HISTORY: vomiting nausea and COMPARISON STUDY: No previous studies for comparison. FINDINGS: The soft tissues, psoas shadows, renal outlines and intestinal gas pattern appear normal. There is no evidence for bowel obstruction. No abnormal abdominal calcifications are seen. IMPRESSION: Normal study. Laboratory Results 02/01/17 07:00 Red Blood Count 3.90, Mean Corpuscular Volume 97.4, Mean Corpuscular Hemoglobin 34.6, Mean Corpuscular Hemoglobin Concent 35.5, Mean Platelet Volume 9.1, Neutrophils (%) (Auto) 86.1, Lymphocytes (%) (Auto) 7.0, Monocytes (%) (Auto) 6.6, Eosinophils (%) (Auto) 0.0, Basophils (%) (Auto) 0.1, Neutrophils # (Auto) 16.27, Lymphocytes # (Auto) 1.33, Monocytes # (Auto) 1.24, Eosinophils # (Auto) 0.00, Basophils # (Auto) 0.01 02/01/17 07:00 Test 02/01/17 07:00 02/01/17 07:45 02/01/17 08:14 White Blood Count 18.89 K/uL (4.8-10.8) Red Blood Count 3.90 M/uL (4.2-5.4) Hemoglobin 13.5 g/dL (12.0-16.0) Hematocrit 38.0 % (37-47) Mean Corpuscular Volume 97.4 fL (80-100) Mean Corpuscular Hemoglobin 34.6 pg (25-34) Mean Corpuscular Hemoglobin Concent 35.5 g/dl (32-36) Platelet Count 303 K/uL (130-400) Mean Platelet Volume 9.1 fL (7.4-10.4) Neutrophils (%) (Auto) 86.1 % Lymphocytes (%) (Auto) 7.0 % Monocytes (%) (Auto) 6.6 % Eosinophils (%) (Auto) 0.0 % Basophils (%) (Auto) 0.1 % Neutrophils # (Auto) 16.27 K/uL (1.4-6.5) Lymphocytes # (Auto) 1.33 K/uL (1.2-3.4) Monocytes # (Auto) 1.24 K/uL (0.11-0.59) Eosinophils # (Auto) 0.00 K/uL (0-0.5) Basophils # (Auto) 0.01 K/uL (0-0.2) RDW Standard Deviation 51.5 fL (36.4-46.3) RDW Coefficient of Variation 14.4 % (11.5-14.5) Immature Granulocyte % (Auto) 0.2 % Immature Granulocyte # (Auto) 0.04 K/uL (0.00-0.02) Prothrombin Time 11.9 SECONDS (9.0-12.0) Prothromb Time International Ratio 1.1 (0.9-1.1) Activated Partial Thromboplast Time 27.3 SECONDS (21.0-31.0) Partial Thromboplastin Ratio 1.1 Anion Gap 10.0 mmol/L (3-11) Est Creatinine Clear Calc Drug Dose 70.6 ml/min Estimated GFR () 109.5 Estimated GFR (Non- 94.5 BUN/Creatinine Ratio 16.8 (10-20) Calcium Level 8.7 mg/dl (8.5-10.1) Magnesium Level 2.1 mg/dl (1.8-2.4) Total Bilirubin 0.7 mg/dl (0.2-1) Aspartate Amino Transf (AST/SGOT) 16 U/L (15-37) Alanine Aminotransferase (ALT/SGPT) 18 U/L (12-78) Alkaline Phosphatase 70 U/L (45-117) Troponin I < 0.015 ng/ml (0-0.045) Total Protein 6.8 gm/dl (6.4-8.2) Albumin 3.2 gm/dl (3.4-5.0) Globulin 3.6 gm/dl (2.5-4.0) Albumin/Globulin Ratio 0.9 (0.9-2) Lipase 64 U/L (73-393) Thyroid Stimulating Hormone (TSH) 0.523 uIu/ml (0.300-4.500) Urine Color DK YELLOW Urine Appearance CLEAR (CLEAR) Urine pH 6.5 (4.5-7.5) Urine Specific Elmer 1.019 (1.000-1.030) Urine Protein NEG (NEG) Urine Glucose (UA) NEG (NEG) Urine Ketones 1+ (NEG) Urine Occult Blood NEG (NEG) Urine Nitrite NEG (NEG) Urine Bilirubin NEG (NEG) Urine Urobilinogen NEG (NEG) Urine Leukocyte Esterase NEG (NEG) Lactic Acid Level 1.3 mmol/L (0.4-2.0) Medications Administered Medications (Trade) Dose Ordered Sig/Zeinab Route Start Time Stop Time Status Last Admin Dose Admin Sodium Chloride (Nss 1000ml) 1,000 ml @ 999 mls/hr Q1H1M ONCE IV 02/01/17 07:30 02/01/17 08:30 DC 02/01/17 07:43 999 MLS/HR Ondansetron HCl (Zofran Inj) 4 mg NOW STAT IV 02/01/17 07:22 02/01/17 07:29 DC 02/01/17 07:43 4 MG Acetaminophen (Tylenol Tab) 1,000 mg NOW STAT PO 02/01/17 08:38 02/01/17 08:40 DC 02/01/17 09:00 1,000 MG Ketorolac Tromethamine 30 mg 30 mg NOW STAT IV 02/01/17 08:38 02/01/17 08:40 DC 02/01/17 08:59 30 MG Sodium Chloride (Nss 1000ml) 1,000 ml @ 999 mls/hr Q1H1M ONCE IV 02/01/17 08:45 02/01/17 09:45 DC 02/01/17 10:14 999 MLS/HR Levofloxacin 750 mg 750 mg NOW ONCE IV 02/01/17 08:45 02/01/17 08:46 DC 02/01/17 10:14 750 MG Aztreonam/Dextrose (Azactam IV/D5 100ml) 110 ml @ 100 mls/hr NOW ONCE IV 02/01/17 08:45 02/01/17 09:50 DC 02/01/17 08:58 100 MLS/HR Albuterol/ Ipratropium (Duoneb) 3 ml NOW ONCE INH 02/01/17 08:45 02/01/17 08:46 DC 02/01/17 09:02 3 ML ED Course Physical exam and history were performed. Nursing notes and EMR were reviewed. Patient appears to have generalized fatigue and weakness worsening over the past few days. She does have a notable history of COPD and crackles on physical examination. IV access was established and labs were obtained. The patient was hydrated and medicated as above. Plain films were performed. Lactic acid and blood cultures were gathered. The patient's blood work is as above and was reviewed. She does have a notably elevated white blood cell count of nearly 19,000. She does not have a significant anemia or gross electrolyte imbalance. Lactic acid was negative and blood cultures are pending. Lipase and transaminases are nondiagnostic. Troponin 1 is negative and the patient's EKG was without ischemia. X-ray is as above and does show a new right lower lobe infiltrate when compared to CT scan that was performed about 10 days ago. The patient did develop a fever while here in the department, and did have some episodes of tachycardia. Because of this there is considerable concern for sepsis secondary to her pneumonia. She does have a fairly recent hospitalization about one month ago, and this may represent a hospital-acquired pneumonia. The case was discussed with my attending physician, Dr. Woods, who remain closely involving patient care and decision making. Patient does not appear stable for discharge home, as she does appear to be septic secondary to pneumonia. The patient case was discussed with the on-call hospitalist who agreed to evaluate the patient here in the emergency department. Please see their dictation for further patient course, plan, and disposition. The chart was completed utilizing [employer] Speech Voice Recognition Software. Grammatical errors, random word insertions, pronoun errors, and incomplete sentences are an occasional consequence of this system due to software limitations, ambient noise, and hardware issues. Any formal questions or concerns about the content, text, or information contained within the body of this dictation should be directly addressed to the provider for clarification. . Medical Decision Differential diagnosis: Etiologies such as sepsis, UTI, pneumonia, metabolic, electrolyte abnormalities , cardiac sources, intracerebral event, toxicologic, neurologic, as well as others were entertained. Impression Primary Impression: Sepsis Additional Impression: Pneumonia Departure Information Dispostion Admitted as an inpatient Referrals Rivas Horn M.D. (PCP) Forms WORK / SCHOOL INSTRUCTIONS, HOME CARE DOCUMENTATION FORM, IMPORTANT VISIT INFORMATION Patient Instructions My [facility] Problem Qualifiers
[2017-02-01] MEDS: HYDROCODONE/ACETAMINOPHEN 7.5/325MG TAB PO PRN (16:19)
[2017-02-01] MEDS ORDERED: MoRPHine SULFATE CR 15 MG TAB (MS CONTIN) PO SCH (21:00)
[2017-02-01] MEDS: ROSUVASTATIN CALCIUM 5 MG TAB PO SCH (21:03)
[2017-02-01] MEDS: QUETIAPINE FUMARATE 100 MG TAB PO SCH (21:04)
[2017-02-02] VITALS (22 sets, daily range): BP systolic 68–118; BP diastolic 38–70; PULSE 61–88; TEMP 36.6–38.3; O2SAT 82–96
[2017-02-02] MEDS: CEFEPIME IV 1,000 MG in DEXTROSE 5% 100ML 100 ML IV SCH ×2 (00:36→14:15)
[2017-02-02] MEDS: ACETAMINOPHEN 325 MG TAB PO PRN (04:13)
[2017-02-02] MEDS ORDERED: SODIUM CHLORIDE 0.9% 500ML 500 ML IV SCH ×2 (04:30→08:15)
[2017-02-02 05:19] LABS: HEMATOCRIT 30.7 % (37-47); MEAN CELL VOLUME 99.7 fL (80-100); MEAN CORPUSCULAR HEMOGLOBIN 34.1 pg (25-34); MEAN CORPUSCULAR HGB CONC 34.2 g/dl (32-36); MEAN PLATELET VOLUME 8.6 fL (7.4-10.4); PLATELET COUNT 224 K/uL (130-400); RED BLOOD COUNT 3.08 M/uL (4.2-5.4); WHITE BLOOD COUNT 10.42 K/uL (4.8-10.8)
[2017-02-02 05:25] LABS: BASO % 0.2 %; BASO ABS # 0.02 K/uL (0-0.2); COMPLETE YES; DOHLE BODIES 1+; IG% 0.7 %; LYMPH % 12.3 %; LYMPH ABS # 1.28 K/uL (1.2-3.4); MONO % 6.2 %; NEUT % 80.6 %
[2017-02-02 05:39] LABS: BUN/CREATININE RATIO 21.7 (10-20); CALCIUM 7.1 mg/dl (8.5-10.1); CREATININE 0.47 mg/dl (0.60-1.20); MAGNESIUM 1.8 mg/dl (1.8-2.4); POTASSIUM 3.7 mmol/L (3.5-5.1)
[2017-02-02] MEDS: NSS + 20MEQ KCL 1000ML 1,000 ML IV SCH ×5 (07:14→20:55)
[2017-02-02] MEDS ORDERED: NURSING VERBAL MED ORDER ONE (07:45)
[2017-02-02] MEDS: LACTULOSE SYRUP 30 GM/45 ML UDP PO SCH ×2 (08:01→11:19)
[2017-02-02] MEDS: ALBUT/IPRATROP 3MG/0.5MG NEB 3 ML VIAL INH SCH ×4 (08:01→20:18)
[2017-02-02] MEDS: CLOPIDOGREL BISULFATE 75 MG TAB PO SCH (08:04)
[2017-02-02] MEDS: FAMOTIDINE 20 MG TAB PO SCH (08:04)
[2017-02-02] MEDS: NICOTINE 7 MG/24 HR TDSY TD SCH (08:05)
[2017-02-02] MEDS: HEPARIN SOD 5000 UNIT/0.5 ML CARP SQ SCH ×3 (08:48→20:15)
[2017-02-02] MEDS ORDERED: LOSARTAN POTASSIUM 25 MG TAB PO SCH (09:00)
[2017-02-02] MEDS: LEVOFLOXACIN / D5W 750 MG in PREMIXED IN D5W 150 ML IV SCH (09:55)
[2017-02-02] MEDS ORDERED: SODIUM CHLORIDE 0.9% 250ML 250 ML IV STA (09:57)
[2017-02-02] MEDS ORDERED: SODIUM CHLORIDE 0.9% 500ML 500 ML IV STA (11:17)
--- NOTE | 2017-02-02 11:27 | Hospitalist Progress Note ---
Hospitalist Progress Note Date of Service Feb 02, 2017. (Tara Noonan PA-C) Subjective Pt evaluation today including: conversation w/ patient, physical exam, chart review, lab review, review of studies, conversation w/ retail consultant, review of inpatient medication list Patient cannot remember why she came into the hospital. She does admit to having a cough and fever. She wants to be discharged home. She denies any dizziness. Denies any chest pain. Additional Comments: 6 system review negative. Please see pertinent positives in the history of present illness section. (Tara Noonan PA-C) Objective Vital Signs Date Time Temp Pulse Resp B/P Pulse Ox O2 Delivery O2 Flow Rate FiO2 02/02/17 11:19 80/42 02/02/17 11:06 87/57 02/02/17 08:59 79 16 87/57 02/02/17 08:46 78/45 02/02/17 08:01 88 14 96 Nasal Cannula 4.0 02/02/17 08:00 Nasal Cannula 2.0 02/02/17 07:39 36.6 79 18 74/45 92 Nasal Cannula 68/42 02/02/17 05:04 37.5 84 18 91/55 96 Nasal Cannula 5.0 02/02/17 04:30 Nasal Cannula 5.0 02/02/17 04:15 75/38 02/02/17 04:03 70/38 02/02/17 04:00 38.3 61 74/38 82 Room Air 02/02/17 00:30 36.8 02/02/17 00:00 Room Air 02/01/17 23:11 37.8 96 16 95/60 90 Room Air 02/01/17 20:20 Room Air 02/01/17 19:32 92 14 90 Room Air 02/01/17 19:00 37.4 96 20 99/61 90 02/01/17 16:20 Room Air 02/01/17 15:59 37.3 91 20 144/63 97 02/01/17 15:34 91 14 97 Nasal Cannula 1.0 02/01/17 12:04 78 14 93 Nasal Cannula 2.0 02/01/17 12:00 36.8 87 18 112/67 94 Nasal Cannula 2.0 (Tara Noonan PA-C) Physical Exam General Appearance: + mild distress (somewhat lethargic) Eyes: EOMI ENT: + pertinent finding (oral mucosa dry.) Neck: no JVD Respiratory/Chest: + pertinent finding (Rales at the right base. No significant wheezing noted.) Cardiovascular: regular rate, rhythm Abdomen: normal bowel sounds, non tender, soft Extremities: non-tender, no pedal edema Neurologic/Psychiatric: no motor/sensory deficits, oriented x 3 (alert and oriented 3. Knows her date of . She is slow to answer questions and lethargic.) Skin: warm/dry (Tara Noonan, KIRAN) Laboratory Results 02/02/17 04:58 Red Blood Count 3.08, Mean Corpuscular Volume 99.7, Mean Corpuscular Hemoglobin 34.1, Mean Corpuscular Hemoglobin Concent 34.2, Mean Platelet Volume 8.6, Neutrophils (%) (Auto) 80.6, Lymphocytes (%) (Auto) 12.3, Monocytes (%) (Auto) 6.2, Eosinophils (%) (Auto) 0.0, Basophils (%) (Auto) 0.2, Neutrophils # (Auto) 8.40, Lymphocytes # (Auto) 1.28, Monocytes # (Auto) 0.65, Eosinophils # (Auto) 0.00, Basophils # (Auto) 0.02 02/02/17 04:58 Test 02/02/17 04:00 02/02/17 04:58 White Blood Count 10.42 K/uL (4.8-10.8) Red Blood Count 3.08 M/uL (4.2-5.4) Hemoglobin 10.5 g/dL (12.0-16.0) Hematocrit 30.7 % (37-47) Mean Corpuscular Volume 99.7 fL (80-100) Mean Corpuscular Hemoglobin 34.1 pg (25-34) Mean Corpuscular Hemoglobin Concent 34.2 g/dl (32-36) Platelet Count 224 K/uL (130-400) Mean Platelet Volume 8.6 fL (7.4-10.4) Neutrophils (%) (Auto) 80.6 % Lymphocytes (%) (Auto) 12.3 % Monocytes (%) (Auto) 6.2 % Eosinophils (%) (Auto) 0.0 % Basophils (%) (Auto) 0.2 % Neutrophils # (Auto) 8.40 K/uL (1.4-6.5) Lymphocytes # (Auto) 1.28 K/uL (1.2-3.4) Monocytes # (Auto) 0.65 K/uL (0.11-0.59) Eosinophils # (Auto) 0.00 K/uL (0-0.5) Basophils # (Auto) 0.02 K/uL (0-0.2) RDW Standard Deviation 52.4 fL (36.4-46.3) RDW Coefficient of Variation 14.6 % (11.5-14.5) Immature Granulocyte % (Auto) 0.7 % Immature Granulocyte # (Auto) 0.07 K/uL (0.00-0.02) Dohle Bodies 1+ Anion Gap 3.0 mmol/L (3-11) Est Creatinine Clear Calc Drug Dose 91.6 ml/min Estimated GFR () 119.3 Estimated GFR (Non- 102.9 BUN/Creatinine Ratio 21.7 (10-20) Lactic Acid Level 1.5 mmol/L (0.4-2.0) Calcium Level 7.1 mg/dl (8.5-10.1) Magnesium Level 1.8 mg/dl (1.8-2.4) Procalcitonin 5.12 ng/mL (0-0.5) Last 24 Hours Test 02/02/17 04:00 02/02/17 04:58 White Blood Count 10.42 K/uL Red Blood Count 3.08 M/uL Hemoglobin 10.5 g/dL Hematocrit 30.7 % Mean Corpuscular Volume 99.7 fL Mean Corpuscular Hemoglobin 34.1 pg Mean Corpuscular Hemoglobin Concent 34.2 g/dl Platelet Count 224 K/uL Mean Platelet Volume 8.6 fL Neutrophils (%) (Auto) 80.6 % Lymphocytes (%) (Auto) 12.3 % Monocytes (%) (Auto) 6.2 % Eosinophils (%) (Auto) 0.0 % Basophils (%) (Auto) 0.2 % Neutrophils # (Auto) 8.40 K/uL Lymphocytes # (Auto) 1.28 K/uL Monocytes # (Auto) 0.65 K/uL Eosinophils # (Auto) 0.00 K/uL Basophils # (Auto) 0.02 K/uL RDW Standard Deviation 52.4 fL RDW Coefficient of Variation 14.6 % Immature Granulocyte % (Auto) 0.7 % Immature Granulocyte # (Auto) 0.07 K/uL Dohle Bodies 1+ Sodium Level 140 mmol/L Potassium Level 3.7 mmol/L Chloride Level 110 mmol/L Carbon Dioxide Level 27 mmol/L Anion Gap 3.0 mmol/L Blood Urea Nitrogen 10 mg/dl Creatinine 0.47 mg/dl Est Creatinine Clear Calc Drug Dose 91.6 ml/min Estimated GFR () 119.3 Estimated GFR (Non- 102.9 BUN/Creatinine Ratio 21.7 Random Glucose 111 mg/dl Lactic Acid Level 1.5 mmol/L Calcium Level 7.1 mg/dl Magnesium Level 1.8 mg/dl Procalcitonin 5.12 ng/mL (Tara Noonan PA-C) Assessment and Plan 66 y/o female presented to the ER on 02/01 with fever productive cough-->PNA per xray SIRS secondary to possible hospital acquired PNA--persistent hypotension -transfer to ICU -continue levaquin, cefepime -MRSA swab-->consider adding Vancomycin for MRSA coverage -Continue Nebs -give an additional 500 cc bolus, Increase -NS + 20 mEq KCl to 150 cc/hr -f/u blood cx -follow CBC, procalcitonin Chronic back pain -hold outpt narcotics for low BP Depression -continue Seroquel DVT prophylaxis -Heparin 5000 u subQ TID -TEDS, SCDs CODE STATUS -LEVEL I FULL CODE (Tara Noonan PA-C) Reviewed: Pt Seen/Exam by Me (Hyacinth Pappas DO) History Pt is feeling improved. BP is in the high 90s systolic. Ate lunch without issues. No SOB, chest pain. Agree with HPI/ROS as noted. Pt states she has gone from 210-120 lbs in the last 6 months. She states she was eating and had an appetite, but her overall PO intake was lower. Her biggest concern is getting home to her dogs, one of which has separation anxiety. (Hyacinth Pappas DO) General Appearance: WD/WN, no apparent distress Respiratory: normal breath sounds, no respiratory distress Cardiovascular: normal peripheral pulses, regular rate, rhythm Gastrointestinal: non tender, soft Extremities: non-tender, no pedal edema Neurologic/Psychiatric: alert, oriented x 3 Skin Characteristics: normal color, warm/dry (Hyacinth Pappas, ) Assessment/Plan Agree with plan as outlined above. Moved to the ICU for hypoTN, however pressures have improved with IVF Seems pt just needed further time for IVF and abx to support CXR noted for PNA Monitor Weight loss will need addressed further once pt is stable from infectious standpoint. Per d/c summary from 12/2016, pt was scheduled for c-scope on d/c at that time. It does not appear to have been done yet. (Hyacinth Pappas, DO)
[2017-02-02] MEDS ORDERED: VANCOMYCIN CONSULT ACTIVE PRN (12:45)
[2017-02-02] MEDS ORDERED: ALBUMIN HUMAN 25% 12.5 GM/50 ML VIAL IV STA (12:45)
--- NOTE | 2017-02-02 13:10 | DIAGNOSTIC IMAGING REPORT ---
SINGLE VIEW CHEST CLINICAL HISTORY: Pneumonia. Sepsis. FINDINGS: An AP, portable, upright chest radiograph is compared to study dated [address] chest CT dated 01/20/2017. The examination is degraded by portable technique and patient rotation. The heart is top normal for projection. Advanced emphysema is again noted with chronic interstitial thickening. Patchy airspace consolidation is again seen throughout the right lung. The left lung is grossly clear. No large pleural effusion is identified. No pneumothorax is seen. The skeletal structures are osteopenic. The bony thorax is grossly intact. Fusion hardware is noted in the lower cervical spine. IMPRESSION: 1. There is increasingly confluent patchy airspace consolidation throughout the right lung as compared to yesterday. The appearance is typical for multifocal pneumonia. Radiographic follow-up to resolution is recommended. 2. Advanced emphysema. 3. The left lung appears clear. Electronically signed by: Demarco Abreu M.D. 02/02/2017 1:08 PM Dictated Date/Time: 02/02/2017 1:04 PM
--- NOTE | 2017-02-02 13:37 | Critical Care Consultation ---
Critical Care Consultation Date of Consultation: Feb 02, 2017. Attending Physician: Hyacinth Pappas DO Reason for Consultation: hypotension History of Present Illness This is a 66 yo f with a history of COPD, epilepsy, HTN, HPL, chronic back pain controlled with narcotics that is presenting to the ICU with hypotension which was not responding to fluids. She originally came to the ED yesterday because the patient had increasing weakness, SOB and productive cough x 4-5 days. She was productive for yellow/ brown sputum with occasional bloody streaks. She stated that this is different for her dry COPD cough. She denied any fever prior to arrival. She was transferred to telemetry and has been receiving NSS with K @ 150cc/h and has been receiving cefepime and levofloxicin for abx. This morning the patient has been persistently hypotensive and 1750 cc has been administed as boluses with a systolic staying < 80. Her typical blood pressure remains in the 110- 115 systolic range. The patient was assessed by the primary team but because of concern for deterioration the patient was brought to the ICU. The patient states that she fells well currently. She denies any presyncope, dizziness, tinnitus, chest pain, worsening dyspnea. Cough is ongoing as noted above and unchanged. She still has ongoing weakness but feels it has improved. She does note occasionally feeling like she will pass out if she gets up too quickly but "that has been ongoing for year". She does have a significant past medical history of back pain which is treated with both morphine and hydrocodone. She has been getting an rx for this monthly as per PDMP. 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 She smokes 1/2 PPD since she was 30. She does not drink any alcohol and does not use any illicit drugs. Past Medical/Surgical History Epilepsy COPD HTN HPL Spondylosis Post Lumbar laminectomy chronic narcotic use Family History Lung disease Social History Smoking Status: Current Every Day Smoker (1/2 - 1 ppd) Smokeless Tobacco Use: No Alcohol Use: none Drug Use: none Marital Status: Housing Status: lives with family Occupation Status: unemployed, disabled Allergies Coded Allergies: Penicillins (Verified Allergy, Unknown, 02/01/17) PATIENT IS NOT ALLERGIC TO PCN - HAS BEEN ON KEFLEX BEFORE PER DR. TORI - ONLY NAUSEA Home Medications Scheduled Albuterol Sulf (Proventil 0.083% 2.5MG/3ML), 2.5 MG INH QID Biotin (Biotin 5000), 5,000 MCG PO DAILY Budesonide/Formoterol Fumarate (Symbicort 160/4.5 Inhaler), 2 PUFFS INH BID Clopidogrel Bisulfate (Plavix), 75 MG PO DAILY Ergocalciferol (Vitamin D), 1 CAP PO WK Famotidine (Pepcid), 20 MG PO DAILY Lactulose (Lactulose), 15-30 ML PO DAILY Lamotrigine (Lamictal), 150 MG PO BID Losartan Potassium (Losartan Potassium), 25 MG PO DAILY Melatonin-Pyridoxine (Melatonin), 10 MG PO HS Morphine Sulfate (Morphine Sulfate Er), 30 MG PO Q12 Quetiapine Fumarate (Seroquel), 100 MG PO HS Rosuvastatin Calcium (Crestor), 5 MG PO HS Tiotropium [place] Monohydrate (Spiriva Respimat), 2 PUFF INH DAILY Umeclidinium [place] (Incruse Ellipta), 1 PUFF INH DAILY Zinc Gluconate (Zinc), 100 MG PO DAILY Scheduled PRN Baclofen (Lioresal), 10 MG PO TID PRN for Muscle Spasms Clonazepam (Klonopin), 1 MG PO QPM PRN for Anxiety and/or Sedation Diphenhydramine Hcl (Benadryl Allergy), 25 MG PO Q6 PRN for Hydrocodone/Acetaminophen 7.5MG/325MG ([place] 7.5MG/325MG), 1 TAB PO TID PRN for Pain Meloxicam (Mobic), 7.5 MG PO DAILY PRN for Pain Miscellaneous Medications Albuterol Sulfate (Proair Respiclick) Current Inpatient Medications Current Inpatient Medications Medications (Trade) Dose Ordered Sig/Zeinab Route Start Time Stop Time Status Last Admin Dose Admin Heparin Sodium (Porcine) 5000 unit 5,000 unit TID SQ 02/01/17 14:00 03/03/17 13:59 02/02/17 08:48 5,000 UNIT Potassium Chloride/Sodium Chloride (Nss + 20meq KCl 1000ml) 1,000 ml @ 150 mls/hr Q6H40M IV 02/01/17 12:00 02/02/17 07:14 125 MLS/HR Acetaminophen (Tylenol Tab) 650 mg Q4H PRN PO 02/01/17 10:00 03/03/17 09:59 02/02/17 04:13 650 MG Ondansetron HCl (Zofran Inj) 4 mg Q6H PRN IV 02/01/17 10:00 03/03/17 09:59 02/01/17 17:20 4 MG Baclofen (Lioresal Tab) 10 mg TID PRN PO 02/01/17 10:00 03/03/17 09:59 Clonazepam (Klonopin Tab) 1 mg QPM PRN PO 02/01/17 10:00 03/03/17 09:59 02/01/17 21:03 1 MG Clopidogrel Bisulfate (plAVix TAB) 75 mg DAILY PO 02/02/17 09:00 03/04/17 08:59 02/02/17 08:04 75 MG Famotidine (Pepcid Tab) 20 mg DAILY PO 02/02/17 09:00 03/04/17 08:59 02/02/17 08:04 20 MG Acetaminophen/ Hydrocodone Bitart ([place] 7.5/325 Tab) 1 tab TID PRN PO 02/01/17 10:00 02/15/17 09:59 02/01/17 16:19 1 TAB Lactulose (Chronulac Syrup) 30 gm DAILY PO 02/02/17 09:00 03/04/17 08:59 Lamotrigine (Lamictal Tab) 150 mg BID PO 02/01/17 21:00 03/03/17 20:59 02/02/17 08:02 150 MG Quetiapine Fumarate (seroQUEL TAB) 100 mg HS PO 02/01/17 21:00 03/03/17 20:59 02/01/17 21:04 100 MG Rosuvastatin Calcium 5 mg 5 mg HS PO 02/01/17 21:00 03/03/17 20:59 02/01/17 21:03 5 MG Levofloxacin/Prmx (Levaquin / D5W/ Premixed D5W) 150 ml @ 100 mls/hr Q24H IV 02/02/17 10:00 02/07/17 11:29 02/02/17 09:55 100 MLS/HR Albuterol/ Ipratropium 3 ml 3 ml QIDR INH 4/18/17 12:00 03/03/17 11:59 02/02/17 08:01 3 ML Cefepime HCl/ Dextrose (Maxipime IV/D5 100ml) 111.3 ml @ 200 mls/hr Q12H IV 02/01/17 13:00 02/08/17 12:59 02/02/17 00:36 200 MLS/HR Albuterol/ Ipratropium (Duoneb) 3 ml Q2H PRN INH 02/01/17 11:30 03/03/17 11:29 Nicotine (Nicoderm Cq 7 Mg Patch) 1 patch QAM TD 02/02/17 09:00 03/04/17 08:59 Miscellaneous (Remove Nicoderm Patch) 1 ea HS N/A 02/01/17 21:00 03/03/17 20:59 Miscellaneous Information 1 ea 1 ea QS N/A 02/03/17 12:00 03/05/17 11:59 Vancomycin HCl/ Sodium Chloride (Vancomycin Inj/ Nss 250ml) 270 ml @ 125 mls/hr Q12 STAT IV 02/02/17 12:13 02/02/17 14:22 UNV Vancomycin HCl (Consult) 1 ea UD PRN N/A 02/02/17 12:45 03/04/17 12:44 Review of Systems Constitutional: No fever Respiratory: + cough, + dyspnea on exertion, + shortness of breath, + sputum, No dyspnea at rest, No wheezing Cardiovascular: No chest pain Abdomen: No constipation, No diarrhea, No nausea, No pain, No vomiting Musculoskeletal: No joint pain, No muscle pain Genitourinary - Female: No dysuria, No urinary retention Neurologic: + balance problems, + weakness, No numbness/tingling Endocrine: + fatigue Hematologic / Lymphatic: + problem reported (lesion on sacrum) Integumentary: No rash Physical Exam Date Time Temp Pulse Resp B/P Pulse Ox O2 Delivery O2 Flow Rate FiO2 02/02/17 11:43 36.9 73 20 93 2.0 02/02/17 11:25 36.9 73 20 93 02/02/17 11:19 80/42 02/02/17 11:06 87/57 02/02/17 08:59 79 16 87/57 4/19/17 08:46 78/45 02/02/17 08:01 88 14 96 Nasal Cannula 4.0 02/02/17 08:00 Nasal Cannula 2.0 02/02/17 07:39 36.6 79 18 74/45 92 Nasal Cannula 68/42 02/02/17 05:04 37.5 84 18 91/55 96 Nasal Cannula 5.0 02/02/17 04:30 Nasal Cannula 5.0 02/02/17 04:15 75/38 02/02/17 04:03 70/38 02/02/17 04:00 38.3 61 74/38 82 Room Air 02/02/17 00:30 36.8 02/02/17 00:00 Room Air 02/01/17 23:11 37.8 96 16 95/60 90 Room Air 02/01/17 20:20 Room Air 02/01/17 19:32 92 14 90 Room Air 02/01/17 19:00 37.4 96 20 99/61 90 02/01/17 16:20 Room Air 02/01/17 15:59 37.3 91 20 144/63 97 02/01/17 15:34 91 14 97 Nasal Cannula 1.0 General Appearance: no apparent distress Head: normocephalic, atraumatic Eyes: PERRLA, EOMI, sclerae normal ENT: other (inspection of ENT wnl) Neck: normal range of motion, no tenderness, supple Respiratory: other (crackles to right base/ mid lung, decreased to bases R>L, full expansion of bilat lungs, no accessory muscle use) Cardiovasular: regular rate/rhythm, no murmur Abdomen: non tender, normal bowel sounds, no guarding Back: normal inspection Upper Extremities: normal ROM Lower Extremities: normal ROM Pulses: dorsalis pedis (R) (2+), dorsalis pedis (L) (2+) Neuro: alert, oriented x 3, normal sensation Psychiatric: normal affect Laboratory Results Last 24 Hours Test 02/02/17 04:00 02/02/17 04:58 White Blood Count 10.42 K/uL Red Blood Count 3.08 M/uL Hemoglobin 10.5 g/dL Hematocrit 30.7 % Mean Corpuscular Volume 99.7 fL Mean Corpuscular Hemoglobin 34.1 pg Mean Corpuscular Hemoglobin Concent 34.2 g/dl Platelet Count 224 K/uL Mean Platelet Volume 8.6 fL Neutrophils (%) (Auto) 80.6 % Lymphocytes (%) (Auto) 12.3 % Monocytes (%) (Auto) 6.2 % Eosinophils (%) (Auto) 0.0 % Basophils (%) (Auto) 0.2 % Neutrophils # (Auto) 8.40 K/uL Lymphocytes # (Auto) 1.28 K/uL Monocytes # (Auto) 0.65 K/uL Eosinophils # (Auto) 0.00 K/uL Basophils # (Auto) 0.02 K/uL RDW Standard Deviation 52.4 fL RDW Coefficient of Variation 14.6 % Immature Granulocyte % (Auto) 0.7 % Immature Granulocyte # (Auto) 0.07 K/uL Dohle Bodies 1+ Sodium Level 140 mmol/L Potassium Level 3.7 mmol/L Chloride Level 110 mmol/L Carbon Dioxide Level 27 mmol/L Anion Gap 3.0 mmol/L Blood Urea Nitrogen 10 mg/dl Creatinine 0.47 mg/dl Est Creatinine Clear Calc Drug Dose 91.6 ml/min Estimated GFR () 119.3 Estimated GFR (Non- 102.9 BUN/Creatinine Ratio 21.7 Random Glucose 111 mg/dl Lactic Acid Level 1.5 mmol/L Calcium Level 7.1 mg/dl Magnesium Level 1.8 mg/dl Procalcitonin 5.12 ng/mL Assessment & Plan 1. Hypotensive episode secondary to infectious process vs dehydration 2. right lower lobe PNA, treated as HCAP because of admission for obs in dec 2016 3. Acute on Chronic hypoxic respiratory failure secondary to pna imposed on COPD as evidence by need for O2 4. Acute anemia- dilutional vs acute blood loss 5. Hypokalemia 6. HTN 7. HPL 8. Chronic back pain requiring narcotics 9. Epilepsy 10. Stage II Pressure ulcer NVS - patient is currently alert - will continue to monitor for signs of delirium and reorient as needed - continue home dose of morphine and norco- based on her PDMP rx - continue quetiapine, lamictal CVS - continue to monitor - Bp improved when admitted to systolic in 90s - Albumin x 1 - continue rosuvastatin RVS - CXR in am - ABG - o2 with a goal of 88-93% considering history of COPD - Duoneb qid with 2h prn - Additionally will add Spiriva GI - regular diet - continue to monitor I&O - daily weights ID - currently on cefepime and levofloxacin - additionally add Vanco - MRSA pending - Blood cx x 2 pending - sputum culture - Mycoplasma and legionella pending - recheck procal in the am - Dressing for pressure ulcer as per wound care team FEN - receiving KCL with NSS @ 150cc/h - recheck PRP this afternoon and adjust accordingly - continue to follow PRP and replete K prn HEME - hgb has decreased to 10.5, could be dilutional - follow HH - leukocytosis has resolved however continue to trend DVT Prophylaxis heparin tid Resident Physician Supervision Note/Shoe Cementer Attending I interviewed and examined the patient. Discussed with Dr. Nguyen and agree with findings and plan as documented in the note. Any exceptions or clarifications are listed here: 66yo woman admitted with R sided PNA and transferred to the ICU for hypotension. She received approx 1.5 liters of IVF boluses over about 5 hours and continued to have low to marginal blood pressure. She has no specific c/o and says she feels better than yesterday, however, CXR from today was reviewed and shows increased infiltrates on the R. She has been given albumin 12.5 grams and abx were broadened to include vancomycin. SBP in low 90's, she is urinating, lactic acid beginning to trend up a bit but still WNL. Sputum culture ordered along with spiriva and flutter valve. At this point, I don't think she yet requires vasopressors but will continue to follow. Lactate f/u this afternoon along with PRP - consider d/c potassium from IVF. Continue current rate. She has a sacral ulcer and wound care is following. She is at risk for opioid withdrawal and is "sleepy" so her extend release MSO4 has been cut in half with PRN morphine available. Will continue to follow closely. Documented By: Shirley Ndiaye Additional Copies To Rivas Horn M.D.
[2017-02-02] MEDS ORDERED: VANCOMYCIN INJ 1,250 MG in SODIUM CHLORIDE 0.9% 250ML 250 ML IV ONE (14:00)
--- NOTE | 2017-02-02 14:13 | Pharmacy Progress Note ---
Pharmacy Antibiotic Consult Date of Service: Feb 02, 2017. Pharmacy Dosing Scope Pharmacy is consulted to initiate vancomycin IV dosing therapy, order appropriate labs and adjust drug dose/frequency. Subjective The patient is a 66 year old female admitted on Feb 01, 2017 at 09:54. She was initially treated with Levaquin and Azactam in the ED. ABX changed to Maxipime and Levaquin on admission. Patient transferred from [facility] --> ICU, ABX broadened with the addition of vancomycin. Objective Height (Feet): 5 Height (Inches): 0.00 Weight (Kilograms): 60.000 Lab Results (24hrs): Laboratory Tests Test 02/02/17 04:58 BUN/Creatinine Ratio 21.7 Blood Urea Nitrogen 10 mg/dl Creatinine 0.47 mg/dl White Blood Count 10.42 K/uL Red Blood Count 3.08 M/uL Hemoglobin 10.5 g/dL Hematocrit 30.7 % Mean Corpuscular Volume 99.7 fL Mean Corpuscular Hemoglobin 34.1 pg Mean Corpuscular Hemoglobin Concent 34.2 g/dl Platelet Count 224 K/uL Mean Platelet Volume 8.6 fL Neutrophils (%) (Auto) 80.6 % Lymphocytes (%) (Auto) 12.3 % Monocytes (%) (Auto) 6.2 % Eosinophils (%) (Auto) 0.0 % Basophils (%) (Auto) 0.2 % Neutrophils # (Auto) 8.40 K/uL Lymphocytes # (Auto) 1.28 K/uL Monocytes # (Auto) 0.65 K/uL Eosinophils # (Auto) 0.00 K/uL Basophils # (Auto) 0.02 K/uL Item Value Date Time Procalcitonin 5.12 ng/mL H 02/02/17 0458 Lactic Acid Level 1.5 mmol/L 02/02/17 0458 Lactic Acid Level 1.3 mmol/L 02/01/17 0814 Micro Results: Item Value Date Time Blood Culture Received 02/01/17 0814 Blood Pending Blood Culture Received 02/01/17 0814 Blood Pending MRSA DNA Surveillance Screen Received 02/02/17 1200 Nasal Pending PENDING SEROLOGIES: * URINE LEGIONELLA AG * MYCOPLASMA PNEUMONIA IgM Recent Pertinent Medications Item Value Date Time Aztreonam 2000 mg/ 110 ml @ 100 mls/hr 02/01/17 0845 Dextrose NOW ONCE/IV ONE TIME DOSE IN ED 02/01/17 0858 Cefepime HCl 1000 111.3 ml @ 200 mls/hr 02/01/17 1300 mg/Dextrose Q12H/IV CONTINUES 02/02/17 0036 Levofloxacin 750 mg 02/01/17 0845 (Levaquin / D5W) NOW ONCE/IV ONE TIME DOSE IN ED 02/01/17 1014 Levofloxacin 750 150 ml @ 100 mls/hr 02/02/17 1000 mg/Prmx Q24H/IV CONTINUES 02/02/17 0955 Assessment & Plan ASSESSMENT: * 66 y/o with a past history of COPD and current tobacco use * Currently being treated for right sided pneumonia, hospital-acquired secondary to recent admission * ABX with Levaquin and Maxipime * Patient persistently hypotensive despite fluid boluses * transferred to the ICU * broaden coverage to include MRSA activity with vancomycin IV PLAN: * Continue Maxipime and Levaquin, add Vancomycin IV Vancomycin: * Loading dose: 1250 mg IV X 1 dose * Maintenance dose: 1000 mg IV q12 hours * Goal trough: 15-20mcg/mL * Estimated Kinetics: T1/2 ~8.6 hours Cefepime: * 1000 mg IV every 12 hours Levofloxacin: * 750 mg IV every 24 hours LABS/MICRO: * Vancomycin trough prior to the 12:00 dose on 02/04 * MRSA nasal swab is pending - help de-escalate vancomycin if/when appropriate * Procalcitonin ordered along with AM labs on 02/03 Pharmacy will continue to follow and will adjust dose/frequency as necessary. Thank you
[2017-02-02] MEDS ORDERED: MoRPHine SULFATE 2 MG/ML CARP IV PRN (14:30)
[2017-02-02] MEDS: MoRPHine SULFATE CR 15 MG TAB (MS CONTIN) PO SCH (16:05)
[2017-02-02 19:48] LABS: BUN/CREATININE RATIO 21.2 (10-20); CALCIUM 7.2 mg/dl (8.5-10.1); CREATININE 0.39 mg/dl (0.60-1.20); POTASSIUM 3.7 mmol/L (3.5-5.1)
[2017-02-02] MEDS: HYDROCODONE/ACETAMINOPHEN 7.5/325MG TAB PO PRN (20:08)
[2017-02-02] MEDS: QUETIAPINE FUMARATE 100 MG TAB PO SCH (20:09)
[2017-02-02] MEDS: ROSUVASTATIN CALCIUM 5 MG TAB PO SCH (20:12)
[2017-02-02 22:23] LABS: HEMATOCRIT 28.5 % (37-47)
[2017-02-02] MEDS: VANCOMYCIN INJ 1,000 MG in SODIUM CHLORIDE 0.9% 250ML 250 ML IV SCH (23:19)
[2017-02-03] VITALS (16 sets, daily range): BP systolic 91–118; BP diastolic 52–75; PULSE 72–90; TEMP 36.8–37.6; O2SAT 91–95
[2017-02-03] MEDS: CEFEPIME IV 1,000 MG in DEXTROSE 5% 100ML 100 ML IV SCH (01:07)
[2017-02-03 06:13] LABS: HEMATOCRIT 29.9 % (37-47); MEAN CORPUSCULAR HEMOGLOBIN 33.8 pg (25-34); MEAN CORPUSCULAR HGB CONC 33.8 g/dl (32-36); MEAN PLATELET VOLUME 8.7 fL (7.4-10.4); PLATELET COUNT 240 K/uL (130-400); RED BLOOD COUNT 2.99 M/uL (4.2-5.4); WHITE BLOOD COUNT 10.72 K/uL (4.8-10.8)
[2017-02-03 06:42] LABS: BASO % 0.2 %; BASO ABS # 0.02 K/uL (0-0.2); COMPLETE YES; ECHINOCYTES 1+; EOS % 1.3 %; IG% 0.7 %; LYMPH % 11.3 %; LYMPH ABS # 1.21 K/uL (1.2-3.4); MONO % 5.9 %; NEUT % 80.6 %
[2017-02-03 06:51] LABS: BUN/CREATININE RATIO 17.3 (10-20); CALCIUM 7.2 mg/dl (8.5-10.1); CREATININE 0.3 mg/dl (0.60-1.20); POTASSIUM 3.5 mmol/L (3.5-5.1)
[2017-02-03 07:05] LABS: PHOSPHORUS 1.2 mg/dl (2.5-4.9)
[2017-02-03] MEDS ORDERED: POTASSIUM PHOS 3 MMOL/1 ML INFUSION IV STA (07:05)
[2017-02-03] MEDS: ALBUT/IPRATROP 3MG/0.5MG NEB 3 ML VIAL INH SCH ×4 (07:20→19:51)
[2017-02-03] MEDS: CLOPIDOGREL BISULFATE 75 MG TAB PO SCH (07:30)
[2017-02-03] MEDS ORDERED: POTASSIUM PHOSPHATE INJ 21 MMOL in SODIUM CHLORIDE 0.9% 500ML 500 ML IV SCH (07:30)
[2017-02-03] MEDS: TIOTROPIUM BROMIDE 5 PUFF/90 MCG INH INH SCH (07:31)
[2017-02-03] MEDS: FAMOTIDINE 20 MG TAB PO SCH (07:31)
[2017-02-03] MEDS: LACTULOSE SYRUP 30 GM/45 ML UDP PO SCH (07:31)
[2017-02-03] MEDS: NICOTINE 7 MG/24 HR TDSY TD SCH (07:32)
[2017-02-03] MEDS: HEPARIN SOD 5000 UNIT/0.5 ML CARP SQ SCH ×3 (07:32→20:35)
[2017-02-03] MEDS: NSS + 20MEQ KCL 1000ML 1,000 ML IV SCH (07:32)
[2017-02-03] MEDS: MoRPHine SULFATE CR 15 MG TAB (MS CONTIN) PO SCH ×2 (07:33→20:30)
--- NOTE | 2017-02-03 08:02 | DIAGNOSTIC IMAGING REPORT ---
SINGLE VIEW CHEST CLINICAL HISTORY: Hypoxia. Pneumonia. Sepsis. FINDINGS: An AP, portable, upright chest radiograph is compared to study dated 02/02/2017 and correlated with chest CT dated 01/20/2017. The examination is degraded by portable technique and patient rotation. The heart is top normal for projection. Advanced emphysema is again noted with chronic interstitial thickening. Patchy airspace consolidation is again seen throughout the right lung. The left lung is grossly clear. A small right pleural effusion is identified. No pneumothorax is seen. The skeletal structures are osteopenic. The bony thorax is grossly intact. Fusion hardware is noted in the lower cervical spine. IMPRESSION: 1. There is continued increasingly confluent patchy airspace consolidation throughout the right lung as compared to yesterday. The appearance is typical for multifocal pneumonia. Radiographic follow-up to resolution is recommended. 2. Advanced emphysema. 3. Small right pleural effusion. 4. The left lung appears clear. Electronically signed by: Demarco Abreu M.D. 02/03/2017 8:00 AM Dictated Date/Time: 02/03/2017 7:59 AM
[2017-02-03 09:53] LABS: LEGIONELLA ANTIGEN NOT DETECTED (NOT DETECTED)
--- NOTE | 2017-02-03 09:59 | Critical Care Progress Note ---
Critical Care Progress Note Date of Service Feb 03, 2017. ICU Day ICU Day Number: [address] Ndiaye Subjective Patient did not have any hypotensive episodes overnight and bp ranged from 90- 115 systolic She insisted that she lay in a dark room yesterday She states that she had 5/10 back pain that is "typical" for her but otherwise no back pain She continues to require 4 L of O2 and comfortable on this rrate Objective General: ambulatory with minimal assist, not in acute distress Skin: she has a sacral ulcer with a dressing placed, multiple tattoos CVS: S1/ S2 noted, RRR, no rubs/ murmurs noted, no cyanosis RVS: coarse breaths sounds and crackles on the right side, decreased to bilat bases by R>L ENT: Inspection WNL Neck: inspection WNL, full ROM of neck ABD: BSx4, no pain/ tenderness on palpation, no organomegaly MSK: inspection of all limbs WNL, motor and sensation intact in all limbs, no swelling/ pain on palpation of joints NVS:PERRL, EOMI, sensation intact in all extremities Lymph: No lymphadenopathy palpable Assessment & Plan 1. Hypotensive episode secondary to infectious process vs dehydration - has stabilized 2. right lower lobe PNA, treated as HCAP because of admission for obs in dec 2016 3. Acute on Chronic hypoxic respiratory failure secondary to pna imposed on COPD as evidence by need for O2 4. Acute anemia- dilutional vs acute blood loss 5. Hypokalemia/ Hypophosphatemia 6. HTN 7. HPL 8. Chronic back pain requiring narcotics 9. Epilepsy 10. Stage II Pressure ulcer NVS - patient is currently alert - will continue to monitor for signs of delirium and reorient as needed - continue dose of morphine and norco- based on her PDMP rx - currently the morphine is half of her home dose - she received only one rx in the recent past for clonazepam and does not take this regularly so this was d/c - continue quetiapine, lamictal - There is question if the patient does have some underlying depression considering that she has a sacral ulcer and she is coming from home, she is ambulatory and prefers to lay in bed in the dark - Once patient has some more clinical improvement it may be warranted to assess the depression further and possibly consider psych consult or augment medications? - case management has been on board CVS - continue to monitor - continue rosuvastatin RVS - CXR - reflected progression of the PNA - o2 with a goal of 88-93% considering history of COPD - Duoneb qid with 2h prn - Spiriva has been added GI - regular diet - continue to monitor I&O - daily weights ID - currently on cefepime and levofloxacin - additionally add Vanco - MRSA negative - Blood cx x 2 pending - sputum culture - many gram pos cocci - consider cont vanco for now - Mycoplasma and legionella pending - recheck procal - improved - recheck tomorrow with vit d additionally - Dressing for pressure ulcer as per wound care team FEN - continue to follow PRP and replete K prn - received pot phos for low phosphorous - recheck in am HEME - hgb has decreased to 10.5, could be dilutional - follow HH - leukocytosis has resolved however continue to trend DVT Prophylaxis heparin tid Resident Physician Supervision Note/Stranding Machine Operator Helper Attending I interviewed and examined the patient. Discussed with Dr. Nguyen and agree with findings and plan as documented in the note. Any exceptions or clarifications are listed here: The patient's care was discussed in detail on multidisciplinary rounds. I have reviewed the VS, I/O, notes, meds, labs, micro, imaging and other reports. She was transferred for hypotension and BP improved with albumin and broadening antibiotics to include vancomycin. She was tearful at times when I talked to her but says she feels much better physically. She has G+cocci in sputum gram stain and is on vancomycin, cefepime and levaquin. CXR shows worsening infiltrate, however, clinically, she looks better and is on 4L O2 via NC. Could consider changing Cefepime to Rocephin for better gram + coverage but WBC is improving, she is afebrile and more alert today. I encouraged her to use the incentive spirometer and flutter valve, bed percussion therapy ordered. She may benefit from lasix tomorrow if BP holds as she is 4L + I/O for 24 hours. Continue duonebs and spriva. She doesn't seem to be having significantly more pain while on half the typical dose of her long acting morphine and she is definitely more alert. She doesn't answer questions directly and changes the subject when I ask her about the possibility that she might be depressed or taking too much pain medication and that if it's related to her decub ulcer. She is on an antidepressant but cannot tell me who prescribes it. The intern retail is also evaluating her. Vit D level pending for tomorrow. Overall, she is improved and I think she is stable for transfer to telemetry. Please call with any questions or concerns. Documented By: Shirley Ndiaye Consults & Procedures Consultants: JONN Procedures: NA Data Medications: Current Inpatient Medications Medications (Trade) Dose Ordered Sig/Zeinab Route Start Time Stop Time Status Last Admin Dose Admin Heparin Sodium (Porcine) (Heparin Sq 5000 Unit/0.5ml) 5,000 unit TID SQ 02/01/17 14:00 03/03/17 13:59 02/03/17 07:32 5,000 UNIT Acetaminophen (Tylenol Tab) 650 mg Q4H PRN PO 02/01/17 10:00 03/03/17 09:59 02/02/17 04:13 650 MG Ondansetron HCl (Zofran Inj) 4 mg Q6H PRN IV 02/01/17 10:00 03/03/17 09:59 02/01/17 17:20 4 MG Baclofen (Lioresal Tab) 10 mg TID PRN PO 02/01/17 10:00 03/03/17 09:59 Clonazepam (Klonopin Tab) 1 mg QPM PRN PO 02/01/17 10:00 03/03/17 09:59 Future Hold 02/01/17 21:03 1 MG Clopidogrel Bisulfate (plAVix TAB) 75 mg DAILY PO 02/02/17 09:00 03/04/17 08:59 02/03/17 07:30 75 MG Famotidine (Pepcid Tab) 20 mg DAILY PO 02/02/17 09:00 03/04/17 08:59 02/03/17 07:31 20 MG Acetaminophen/ Hydrocodone Bitart ([place] 7.5/325 Tab) 1 tab TID PRN PO 02/01/17 10:00 02/15/17 09:59 02/02/17 20:08 1 TAB Lactulose (Chronulac Syrup) 30 gm DAILY PO 02/02/17 09:00 03/04/17 08:59 02/03/17 07:31 30 GM Lamotrigine (Lamictal Tab) 150 mg BID PO 02/01/17 21:00 03/03/17 20:59 02/03/17 07:31 150 MG Quetiapine Fumarate (seroQUEL TAB) 100 mg HS PO 02/01/17 21:00 03/03/17 20:59 02/02/17 20:09 100 MG Rosuvastatin Calcium 5 mg 5 mg HS PO 02/01/17 21:00 03/03/17 20:59 02/02/17 20:12 5 MG Levofloxacin/Prmx (Levaquin / D5W/ Premixed D5W) 150 ml @ 100 mls/hr Q24H IV 02/02/17 10:00 02/07/17 11:29 02/02/17 09:55 100 MLS/HR Albuterol/ Ipratropium 3 ml 3 ml QIDR INH 02/01/17 12:00 03/03/17 11:59 02/03/17 07:20 3 ML Cefepime HCl/ Dextrose (Maxipime IV/D5 100ml) 111.3 ml @ 200 mls/hr Q12H IV 02/01/17 13:00 02/08/17 12:59 02/03/17 01:07 200 MLS/HR Albuterol/ Ipratropium (Duoneb) 3 ml Q2H PRN INH 02/01/17 11:30 03/03/17 11:29 Nicotine (Nicoderm Cq 7 Mg Patch) 1 patch QAM TD 02/02/17 09:00 03/04/17 08:59 Miscellaneous (Remove Nicoderm Patch) 1 ea HS N/A 02/01/17 21:00 03/03/17 20:59 02/02/17 20:12 1 EA Miscellaneous Information (Order Awaiting Action) 1 ea QS N/A 02/03/17 12:00 03/05/17 11:59 Vancomycin HCl 1 ea 1 ea UD PRN N/A 02/02/17 12:45 03/04/17 12:44 Vancomycin HCl/ Sodium Chloride (Vancomycin Inj/ Nss 250ml) 270 ml @ 125 mls/hr Q12H IV 02/03/17 00:00 02/10/17 00:00 02/02/17 23:19 125 MLS/HR Tiotropium [place] (Spiriva Handihaler Inhaler) 2 puff QAM INH 02/03/17 09:00 03/05/17 08:59 02/03/17 07:31 2 PUFF Morphine Sulfate (Oramorph Sr Tab) 15 mg Q12@0800,2000 PO 02/02/17 16:00 02/16/17 15:59 02/03/17 07:33 15 MG Morphine Sulfate 2 mg 2 mg Q4 PRN IV 02/02/17 14:30 02/16/17 14:29 Potassium Phosphate/Sodium Chloride (Potassium Phosphate Inj/Nss 500ml) 507 ml @ 140 mls/hr TODAY@0730 IV 02/03/17 07:30 02/03/17 11:08 02/03/17 07:30 140 MLS/HR I & O: 24-Hour Column 02/03/17 08:00 Intake Total 4042 ml Output Total 1100 ml Balance 2942 ml Vital Signs: Date Time Temp Pulse Resp B/P Pulse Ox O2 Delivery O2 Flow Rate FiO2 02/03/17 08:00 79 20 118/56 92 Nasal Cannula 2.0 02/03/17 08:00 Nasal Cannula 2.0 02/03/17 07:20 81 20 94 Nasal Cannula 2.5 02/03/17 06:15 75 29 116/56 94 Nasal Cannula 3.0 02/03/17 04:00 37.6 72 27 96/52 95 Nasal Cannula 3.0 02/03/17 04:00 93 Nasal Cannula 3.0 02/03/17 02:00 72 28 103/64 94 Nasal Cannula 3.0 02/03/17 00:25 77 16 107/62 92 Nasal Cannula 3.0 02/02/17 23:59 93 Nasal Cannula 3.0 02/02/17 23:00 37.1 75 28 92/49 93 Nasal Cannula 3.0 02/02/17 22:00 80 28 86/45 91 Nasal Cannula 3.0 02/02/17 20:18 80 24 92 Nasal Cannula 2.5 02/02/17 20:00 90 Nasal Cannula 3.0 02/02/17 20:00 37.9 86 24 118/70 90 Nasal Cannula 3.0 02/02/17 18:01 84 20 105/63 94 Nasal Cannula 2.0 02/02/17 16:00 Nasal Cannula 2.0 02/02/17 16:00 36.9 88 20 114/61 91 Nasal Cannula 2.0 02/02/17 15:39 81 14 95 Nasal Cannula 2.0 02/02/17 14:07 36.9 81 20 94/48 90 Nasal Cannula 2.0 02/02/17 11:43 36.9 73 20 93 2.0 02/02/17 11:25 36.9 73 20 93 02/02/17 11:19 80/42 02/02/17 11:06 87/57 Laboratory Results: Last 24 Hours Test 02/02/17 17:00 02/02/17 22:12 02/03/17 05:38 Sodium Level 140 mmol/L 142 mmol/L Potassium Level 3.7 mmol/L 3.5 mmol/L Chloride Level 111 mmol/L 112 mmol/L Carbon Dioxide Level 21 mmol/L 22 mmol/L Anion Gap 8.0 mmol/L 8.0 mmol/L Blood Urea Nitrogen 8 mg/dl 5 mg/dl Creatinine 0.39 mg/dl 0.30 mg/dl Est Creatinine Clear Calc Drug Dose 114.9 ml/min 151.0 ml/min Estimated GFR () 126.8 138.3 Estimated GFR (Non- 109.4 119.3 BUN/Creatinine Ratio 21.2 17.3 Random Glucose 108 mg/dl 86 mg/dl Lactic Acid Level 1.2 mmol/L Calcium Level 7.2 mg/dl 7.2 mg/dl Hemoglobin 9.7 g/dL 10.1 g/dL Hematocrit 28.5 % 29.9 % White Blood Count 10.72 K/uL Red Blood Count 2.99 M/uL Mean Corpuscular Volume 100.0 fL Mean Corpuscular Hemoglobin 33.8 pg Mean Corpuscular Hemoglobin Concent 33.8 g/dl Platelet Count 240 K/uL Mean Platelet Volume 8.7 fL Neutrophils (%) (Auto) 80.6 % Lymphocytes (%) (Auto) 11.3 % Monocytes (%) (Auto) 5.9 % Eosinophils (%) (Auto) 1.3 % Basophils (%) (Auto) 0.2 % Neutrophils # (Auto) 8.64 K/uL Lymphocytes # (Auto) 1.21 K/uL Monocytes # (Auto) 0.63 K/uL Eosinophils # (Auto) 0.14 K/uL Basophils # (Auto) 0.02 K/uL RDW Standard Deviation 54.6 fL RDW Coefficient of Variation 14.9 % Immature Granulocyte % (Auto) 0.7 % Immature Granulocyte # (Auto) 0.08 K/uL Echinocytes 1+ Phosphorus Level 1.2 mg/dl Magnesium Level 2.0 mg/dl Procalcitonin 3.42 ng/ml
[2017-02-03] MEDS: LEVOFLOXACIN / D5W 750 MG in PREMIXED IN D5W 150 ML IV SCH (10:23)
[2017-02-03] MEDS: UMECLIDINIUM BROMIDE SCH ×3 (12:00→23:36)
--- NOTE | 2017-02-03 12:37 | Clinical Documentation Query ---
JAMIN Henry : CLINICAL DOCUMENTATION QUERY Patient is a 66 year old female presenting with weakness, lethargy, poor appetite, and productive cough admitted with sepsis secondary to pneumonia. Subsequent to this, documentation has included "SIRS secondary to possible hospital acquired PNA" requiring ICU transfer, repeat IVF boluses, maintenance fluids, and broad spectrum antibiotics. Procalcitonin level elevated. SIRS due to an infectious source equated with sepsis in ICD-9. This is not the case in ICD-10. If this was the intent of this diagnostic statement, please consider clarification as suggested below. Thank you. In your clinical opinion is this patient being managed for: ( x ) Sepsis due to hospital acquired pneumonia ( ) Other explanation of clinical findings (Please Explain) ( ) Unable to determine (Please Define) ( ) Need to Discuss ( ) Not Agree The medical record reflects the following clinical findings, treatment, and risk factors. Clinical Indicators: As above Treatment:ICU transfer, repeat IVF boluses, maintenance fluids, and broad spectrum antibiotics. Risk Factors: Age, infection, recent hospitalization, comorbid conditions. Please clarify and document your clinical opinion in the progress notes and discharge summary. Terms such as "probable", "suspected", "likely", "questionable", "possible", or "still to be ruled out" are acceptable. IF IN AGREEMENT, YOU MUST DOCUMENT ABOVE DIAGNOSTIC STATEMENT IN DAILY PROGRESS NOTES AND DISCHARGE SUMMARY. This document is not part of the patient's record. Thank You, Rashel Thorne, ARMINDA [phone]
[2017-02-03] MEDS: CEFEPIME IV 2,000 MG in DEXTROSE 5% 100ML 100 ML IV SCH (12:46)
[2017-02-03] MEDS: VANCOMYCIN INJ 1,000 MG in SODIUM CHLORIDE 0.9% 250ML 250 ML IV SCH ×2 (12:46→21:55)
--- NOTE | 2017-02-03 13:13 | Hospitalist Progress Note ---
Hospitalist Progress Note Date of Service Feb 03, 2017. (Tara Noonan PA-C) Subjective Pt evaluation today including: conversation w/ patient, physical exam, chart review, lab review, review of studies, conversation w/ solar sales consultant, review of inpatient medication list Overall feeling better today. Breathing is improved. Still has a productive cough. Denies any fever or chills. Complaining of moderate back pain sitting in a chair. Wants to get back in bed. Denies any nausea. Tolerating her diet. Additional Comments: 6 system review negative. Please see pertinent positives in the history of present illness section. (Tara Noonan PA-C) Objective Vital Signs Date Time Temp Pulse Resp B/P Pulse Ox O2 Delivery O2 Flow Rate FiO2 02/03/17 12:38 37.6 85 20 92 2.0 02/03/17 12:00 85 20 92 Nasal Cannula 2.0 02/03/17 12:00 Nasal Cannula 2.0 02/03/17 10:01 77 20 105/60 94 Nasal Cannula 2.0 02/03/17 08:00 79 20 118/56 92 Nasal Cannula 2.0 02/03/17 08:00 Nasal Cannula 2.0 02/03/17 07:20 81 20 94 Nasal Cannula 2.5 02/03/17 06:15 75 29 116/56 94 Nasal Cannula 3.0 02/03/17 04:00 37.6 72 27 96/52 95 Nasal Cannula 3.0 02/03/17 04:00 93 Nasal Cannula 3.0 02/03/17 02:00 72 28 103/64 94 Nasal Cannula 3.0 02/03/17 00:25 77 16 107/62 92 Nasal Cannula 3.0 02/02/17 23:59 93 Nasal Cannula 3.0 02/02/17 23:00 37.1 75 28 92/49 93 Nasal Cannula 3.0 02/02/17 22:00 80 28 86/45 91 Nasal Cannula 3.0 02/02/17 20:18 80 24 92 Nasal Cannula 2.5 02/02/17 20:00 90 Nasal Cannula 3.0 02/02/17 20:00 37.9 86 24 118/70 90 Nasal Cannula 3.0 02/02/17 18:01 84 20 105/63 94 Nasal Cannula 2.0 02/02/17 16:00 Nasal Cannula 2.0 02/02/17 16:00 36.9 88 20 114/61 91 Nasal Cannula 2.0 02/02/17 15:39 81 14 95 Nasal Cannula 2.0 02/02/17 14:07 36.9 81 20 94/48 90 Nasal Cannula 2.0 (Tara Noonan PA-C) Physical Exam General Appearance: no apparent distress (sitting up in a chair.) Eyes: EOMI Neck: no JVD Respiratory/Chest: + pertinent finding (decreased breath sounds particularly at the right base. Few rales noted at the left base. No significant wheezing.) Cardiovascular: regular rate, rhythm Abdomen: normal bowel sounds, non tender, soft Extremities: non-tender, no pedal edema Neurologic/Psychiatric: no motor/sensory deficits, alert (more alert today.), oriented x 3 Skin: warm/dry (Tara Noonan PA-C) Laboratory Results 02/03/17 05:38 Red Blood Count 2.99, Mean Corpuscular Volume 100.0, Mean Corpuscular Hemoglobin 33.8, Mean Corpuscular Hemoglobin Concent 33.8, Mean Platelet Volume 8.7, Neutrophils (%) (Auto) 80.6, Lymphocytes (%) (Auto) 11.3, Monocytes (%) ( Auto) 5.9, Eosinophils (%) (Auto) 1.3, Basophils (%) (Auto) 0.2, Neutrophils # ( Auto) 8.64, Lymphocytes # (Auto) 1.21, Monocytes # (Auto) 0.63, Eosinophils # ( Auto) 0.14, Basophils # (Auto) 0.02 02/03/17 05:38 Test 02/02/17 17:00 02/03/17 05:38 Lactic Acid Level 1.2 mmol/L (0.4-2.0) White Blood Count 10.72 K/uL (4.8-10.8) Red Blood Count 2.99 M/uL (4.2-5.4) Hemoglobin 10.1 g/dL (12.0-16.0) Hematocrit 29.9 % (37-47) Mean Corpuscular Volume 100.0 fL (80-100) Mean Corpuscular Hemoglobin 33.8 pg (25-34) Mean Corpuscular Hemoglobin Concent 33.8 g/dl (32-36) Platelet Count 240 K/uL (130-400) Mean Platelet Volume 8.7 fL (7.4-10.4) Neutrophils (%) (Auto) 80.6 % Lymphocytes (%) (Auto) 11.3 % Monocytes (%) (Auto) 5.9 % Eosinophils (%) (Auto) 1.3 % Basophils (%) (Auto) 0.2 % Neutrophils # (Auto) 8.64 K/uL (1.4-6.5) Lymphocytes # (Auto) 1.21 K/uL (1.2-3.4) Monocytes # (Auto) 0.63 K/uL (0.11-0.59) Eosinophils # (Auto) 0.14 K/uL (0-0.5) Basophils # (Auto) 0.02 K/uL (0-0.2) RDW Standard Deviation 54.6 fL (36.4-46.3) RDW Coefficient of Variation 14.9 % (11.5-14.5) Immature Granulocyte % (Auto) 0.7 % Immature Granulocyte # (Auto) 0.08 K/uL (0.00-0.02) Echinocytes 1+ Anion Gap 8.0 mmol/L (3-11) Est Creatinine Clear Calc Drug Dose 151.0 ml/min Estimated GFR () 138.3 Estimated GFR (Non- 119.3 BUN/Creatinine Ratio 17.3 (10-20) Calcium Level 7.2 mg/dl (8.5-10.1) Phosphorus Level 1.2 mg/dl (2.5-4.9) Magnesium Level 2.0 mg/dl (1.8-2.4) Procalcitonin 3.42 ng/ml (0-0.5) Last 24 Hours Test 02/02/17 17:00 02/02/17 22:12 02/03/17 05:38 Sodium Level 140 mmol/L 142 mmol/L Potassium Level 3.7 mmol/L 3.5 mmol/L Chloride Level 111 mmol/L 112 mmol/L Carbon Dioxide Level 21 mmol/L 22 mmol/L Anion Gap 8.0 mmol/L 8.0 mmol/L Blood Urea Nitrogen 8 mg/dl 5 mg/dl Creatinine 0.39 mg/dl 0.30 mg/dl Est Creatinine Clear Calc Drug Dose 114.9 ml/min 151.0 ml/min Estimated GFR () 126.8 138.3 Estimated GFR (Non- 109.4 119.3 BUN/Creatinine Ratio 21.2 17.3 Random Glucose 108 mg/dl 86 mg/dl Lactic Acid Level 1.2 mmol/L Calcium Level 7.2 mg/dl 7.2 mg/dl Hemoglobin 9.7 g/dL 10.1 g/dL Hematocrit 28.5 % 29.9 % White Blood Count 10.72 K/uL Red Blood Count 2.99 M/uL Mean Corpuscular Volume 100.0 fL Mean Corpuscular Hemoglobin 33.8 pg Mean Corpuscular Hemoglobin Concent 33.8 g/dl Platelet Count 240 K/uL Mean Platelet Volume 8.7 fL Neutrophils (%) (Auto) 80.6 % Lymphocytes (%) (Auto) 11.3 % Monocytes (%) (Auto) 5.9 % Eosinophils (%) (Auto) 1.3 % Basophils (%) (Auto) 0.2 % Neutrophils # (Auto) 8.64 K/uL Lymphocytes # (Auto) 1.21 K/uL Monocytes # (Auto) 0.63 K/uL Eosinophils # (Auto) 0.14 K/uL Basophils # (Auto) 0.02 K/uL RDW Standard Deviation 54.6 fL RDW Coefficient of Variation 14.9 % Immature Granulocyte % (Auto) 0.7 % Immature Granulocyte # (Auto) 0.08 K/uL Echinocytes 1+ Phosphorus Level 1.2 mg/dl Magnesium Level 2.0 mg/dl Procalcitonin 3.42 ng/ml (Tara Noonan PA-C) Diagnostic Results Patient Name: KAM LIZAMA V Unit Number: [id number] Dictated: 02/03/17758 Transcribed: 02/03/17758 EV Printed Date/Time: [~ rep prt dt]/[~ rep prt tm] [~ rep ct labl] - [~ rep ct ivnm] [facility] Radiology Department [place], [place] [address] Dictated: 02/03/17758 Transcribed: 02/03/17758 EV Printed Date/Time: [~ rep prt dt]/[~ rep prt tm] [~ rep ct labl] - [~ rep ct ivnm] SINGLE VIEW CHEST CLINICAL HISTORY: Hypoxia. Pneumonia. Sepsis. FINDINGS: An AP, portable, upright chest radiograph is compared to study dated 02/02/2017 and correlated with chest CT dated 01/20/2017. The examination is degraded by portable technique and patient rotation. The heart is top normal for projection. Advanced emphysema is again noted with chronic interstitial thickening. Patchy airspace consolidation is again seen throughout the right lung. The left lung is grossly clear. A small right pleural effusion is identified. No pneumothorax is seen. The skeletal structures are osteopenic. The bony thorax is grossly intact. Fusion hardware is noted in the lower cervical spine. IMPRESSION: 1. There is continued increasingly confluent patchy airspace consolidation throughout the right lung as compared to yesterday. The appearance is typical for multifocal pneumonia. Radiographic follow-up to resolution is recommended. 2. Advanced emphysema. 3. Small right pleural effusion. 4. The left lung appears clear. Electronically signed by: Demarco Abreu M.D. 02/03/2017 8:00 AM Dictated Date/Time: 02/03/2017 7:59 AM The status of this report is Signed. Draft = Not yet reviewed or approved by Radiologist. Signed = Reviewed and approved by Radiologist. <AttendingPhy>Hyacinth Pappas DO</AttendingPhy> <FamilyPhy>Rivas Horn M.D.</FamilyPhy> <PrimaryPhy>Rivas Horn M.D.</ PrimaryPhy> <UnitNumber>[id number]</UnitNumber> <VisitNumber>[id number]</ VisitNumber> <PatientName>KAM LIZAMA V</PatientName> <DateOfBirth>1950</ DateOfBirth> <Location>C.MS[facility]</Location> <ServiceDate>02/01/17</ServiceDate> < MNE>ESINDI</MNE> <OrderingPhy>Yris Nguyen MD</OrderingPhy> <OrderingPhyMNE> f rep ord dr douglas</OrderingPhyMNE> <DictatingPhyMNE>f rep dict dr douglas</ DictatingPhyMNE> <CCListMNE>f rep ct mne</CCListMNE> <AdmittingPhyMNE>f pt admit dr douglas</AdmittingPhyMNE> <AttendingPhyMNE>f pt attend dr douglas</ AttendingPhyMNE> <ConsultingPhyMNE>f pt consult dr douglas</ConsultingPhyMNE> <FamilyPhyMNE>f pt fam dr douglas</FamilyPhyMNE> <OtherPhyMNE>f pt other dr douglas</OtherPhyMNE> < PrimaryPhyMNE>f pt prim care dr douglas</PrimaryPhyMNE> <ReferringPhyMNE>f pt referring dr douglas</ReferringPhyMNE> (Tara Noonan, PA-C) Assessment and Plan 66 y/o female presented to the ER on 02/01 with fever productive cough-->PNA per xray SIRS secondary to possible hospital acquired PNA-overall improved today -continue levaquin, cefepime -vanc added-->continue -continue nebs -stable for transfer out of the ICU-->telemetry Hypotension-BP stable now -d/c IVF given few rales on exam Seizure d/o -continue Lamictal 150 mg po BID COPD -contiue Spiriva and Symbicort Chronic back pain -narcs started again at lower dose. Morphine ER 15 mg po BID -prn morphine IV available -hold Klonopin for oversedation Depression -continue Seroquel DVT prophylaxis -Heparin 5000 u subQ TID -TEDS, SCDs CODE STATUS -LEVEL I FULL CODE (Tara Noonan, PALilianC) Reviewed: Pt Seen/Exam by Me (Hyacinth Pappas DO) History Pt states she is feeling improved. Still with a cough, but her SOB is better. Tolerating PO this AM. Agree with HPI/ROS as noted above. (Hyacinth Pappas, DO) General Appearance: WD/WN, no apparent distress Respiratory: no respiratory distress, crackles Cardiovascular: normal peripheral pulses, regular rate, rhythm Gastrointestinal: non tender, soft Extremities: non-tender, no pedal edema Neurologic/Psychiatric: alert, oriented x 3 Skin Characteristics: normal color, warm/dry (Hyacinth Pappas, ) Assessment/Plan Agree with plan as outlined above. PNA and improving on abx Monitor with gradual step down of abx Weight loss will need addressed further once pt is stable from infectious standpoint. Per d/c summary from 12/2016, pt was scheduled for c-scope on d/c at that time. It does not appear to have been done yet. (Hyacinth Pappas, DO)
[2017-02-03] MEDS: ROSUVASTATIN CALCIUM 5 MG TAB PO SCH (20:30)
[2017-02-03] MEDS: QUETIAPINE FUMARATE 100 MG TAB PO SCH (20:31)
[2017-02-04] VITALS (11 sets, daily range): BP systolic 95–132; BP diastolic 56–77; PULSE 72–89; TEMP 36.9–37.9; O2SAT 88–95
[2017-02-04] MEDS: CEFEPIME IV 2,000 MG in DEXTROSE 5% 100ML 100 ML IV SCH ×2 (01:00→13:10)
[2017-02-04] MEDS: ALBUT/IPRATROP 3MG/0.5MG NEB 3 ML VIAL INH SCH ×4 (06:59→20:38)
[2017-02-04] MEDS ORDERED: VANCOMYCIN TROUGH SCH ×2 (07:30→11:30)
[2017-02-04] MEDS: UMECLIDINIUM BROMIDE SCH ×3 (07:51→22:56)
[2017-02-04 08:14] LABS: BASO % 0.2 %; BASO ABS # 0.03 K/uL (0-0.2); COMPLETE YES; EOS % 1.1 %; HEMATOCRIT 31.7 % (37-47); IG% 0.6 %; LYMPH % 11.8 %; LYMPH ABS # 1.45 K/uL (1.2-3.4); MEAN CELL VOLUME 98.4 fL (80-100); MEAN CORPUSCULAR HEMOGLOBIN 33.2 pg (25-34); MEAN CORPUSCULAR HGB CONC 33.8 g/dl (32-36); MEAN PLATELET VOLUME 8.4 fL (7.4-10.4); MONO % 12.6 %; NEUT % 73.7 %; PLATELET COUNT 299 K/uL (130-400); RED BLOOD COUNT 3.22 M/uL (4.2-5.4); WHITE BLOOD COUNT 12.32 K/uL (4.8-10.8)
[2017-02-04] MEDS: LACTULOSE SYRUP 30 GM/45 ML UDP PO SCH (08:38)
[2017-02-04] MEDS: FAMOTIDINE 20 MG TAB PO SCH (08:38)
[2017-02-04] MEDS: CLOPIDOGREL BISULFATE 75 MG TAB PO SCH (08:38)
[2017-02-04] MEDS: MoRPHine SULFATE CR 15 MG TAB (MS CONTIN) PO SCH ×2 (08:38→21:27)
[2017-02-04] MEDS: BACLOFEN 10 MG TAB PO PRN ×2 (08:39→21:29)
[2017-02-04] MEDS: VANCOMYCIN INJ 1,000 MG in SODIUM CHLORIDE 0.9% 250ML 250 ML IV SCH ×2 (08:39→16:06)
[2017-02-04] MEDS: HEPARIN SOD 5000 UNIT/0.5 ML CARP SQ SCH ×3 (08:49→21:00)
[2017-02-04] MEDS: NICOTINE 7 MG/24 HR TDSY TD SCH (08:49)
[2017-02-04 09:04] LABS: BUN/CREATININE RATIO 6.1 (10-20); CALCIUM 8.1 mg/dl (8.5-10.1); CREATININE 0.33 mg/dl (0.60-1.20); POTASSIUM 2.9 mmol/L (3.5-5.1)
[2017-02-04] MEDS ORDERED: POTASSIUM PHOS 3 MMOL/1 ML INFUSION IV STA (09:34)
--- NOTE | 2017-02-04 09:40 | Pharmacy Progress Note ---
Pharmacy Antibiotic Prog Note Date of Service Feb 04, 2017. Subjective The patient is currently receiving vancomycin 1 mg IV every 10 hours (has received around 2 doses of this frequency). The patient is currently on day # 3 of IV therapy. Objective Height (Feet): 5 Height (Inches): 0.00 Weight (Kilograms): 65.000 Levels: Item Value Date Time Vancomycin Level Trough 8.1 mcg/ml 02/04/17 0802 Lab Results (24hrs): Laboratory Tests Test 02/04/17 08:02 BUN/Creatinine Ratio 6.1 Blood Urea Nitrogen 2 mg/dl Creatinine 0.33 mg/dl White Blood Count 12.32 K/uL Red Blood Count 3.22 M/uL Hemoglobin 10.7 g/dL Hematocrit 31.7 % Mean Corpuscular Volume 98.4 fL Mean Corpuscular Hemoglobin 33.2 pg Mean Corpuscular Hemoglobin Concent 33.8 g/dl Platelet Count 299 K/uL Mean Platelet Volume 8.4 fL Neutrophils (%) (Auto) 73.7 % Lymphocytes (%) (Auto) 11.8 % Monocytes (%) (Auto) 12.6 % Eosinophils (%) (Auto) 1.1 % Basophils (%) (Auto) 0.2 % Neutrophils # (Auto) 9.07 K/uL Lymphocytes # (Auto) 1.45 K/uL Monocytes # (Auto) 1.55 K/uL Eosinophils # (Auto) 0.14 K/uL Basophils # (Auto) 0.03 K/uL Assessment & Plan ASSESSMENT * Ms Gomes was admitted on 02/01/2017 for pneumonia, presumed HAP due to previous admission. She has a history of COPD and continues to smoke. * She was admitted to the ICU for blood pressure that would not respond to fluids. She was released yesterday. * Her MRSA swab is negative and sputum culture is light normal geoff. PLAN This drug level is: Subtherapeutic. Change to vancomycin 1000 mg IV every 8 hours (even though this is technically not steady state, I believe a dose increase is necessary to achieve therapeutic levels). Goal peak level estimate: between 35 - 40 mcg/mL. Goal trough level estimate: between 15 - 20 mcg/mL (indication pneumonia) Trough has been ordered for: . Pharmacy will continue to follow and will adjust dose/frequency as necessary. Thank you
[2017-02-04] MEDS ORDERED: POTASSIUM CHLR 10 MEQ / WTR 10 MEQ in PREMIXED WATER 100 ML IV ONE (09:45)
[2017-02-04] MEDS ORDERED: POTASSIUM PHOSPHATE INJ 21 MMOL in SODIUM CHLORIDE 0.9% 500ML 500 ML IV SCH (10:00)
[2017-02-04] MEDS: TIOTROPIUM BROMIDE 5 PUFF/90 MCG INH INH SCH (10:17)
[2017-02-04] MEDS: LEVOFLOXACIN / D5W 750 MG in PREMIXED IN D5W 150 ML IV SCH (10:46)
[2017-02-04] MEDS: POTASSIUM CHLORIDE 20 MEQ TABCR PO SCH (10:47)
--- NOTE | 2017-02-04 13:29 | Hospitalist Progress Note ---
Hospitalist Progress Note Date of Service Feb 04, 2017. (Tara Noonan PA-C) Subjective Pt evaluation today including: conversation w/ patient, physical exam ( ) Patient thinks that she is feeling better this morning. Breathing is improved from yesterday. Productive cough now with yellow sputum. Denies any fever or chills. No chest pain or pressure. No problems with bowel movements. No dizziness. Strength is slightly better. Appetite is coming back. Additional Comments: 6 system review negative. Please see pertinent positives in the history of present illness section. (Tara Noonan PA-C) Objective Vital Signs Date Time Temp Pulse Resp B/P Pulse Ox O2 Delivery O2 Flow Rate FiO2 02/04/17 12:00 Nasal Cannula 2.0 02/04/17 11:49 37.1 72 16 111/69 93 Nasal Cannula 2.0 02/04/17 11:13 85 18 92 Nasal Cannula 2.0 02/04/17 08:51 92 Nasal Cannula 2.0 02/04/17 08:50 37.9 86 22 105/70 88 Room Air 02/04/17 08:00 Nasal Cannula 2.0 02/04/17 06:59 84 18 95 Nasal Cannula 3.0 02/04/17 04:00 Nasal Cannula 3.0 02/04/17 03:51 37.4 89 18 102/61 92 Nasal Cannula 2.0 02/04/17 00:00 Nasal Cannula 3.0 02/03/17 23:16 36.8 89 20 107/65 93 Room Air 02/03/17 20:20 37.5 90 18 108/68 92 Nasal Cannula 3.0 02/03/17 20:00 Nasal Cannula 4.0 02/03/17 19:51 81 20 93 Nasal Cannula 4.0 02/03/17 16:00 Nasal Cannula 02/03/17 15:39 37.3 78 20 101/75 95 Nasal Cannula 3.0 02/03/17 15:21 74 20 93 Nasal Cannula 3.0 02/03/17 12:58 37.0 77 20 91/55 91 Nasal Cannula 2.0 (Tara Noonan PA-C) Physical Exam General Appearance: no apparent distress (sitting up in a chair. No apparent distress.) Eyes: EOMI ENT: + pertinent finding (oral mucosa slightly dry. No exudate noted.) Neck: no JVD Respiratory/Chest: + pertinent finding (crackles at the right base. No significant wheezing noted. No tachypnea.) Cardiovascular: regular rate, rhythm Abdomen: normal bowel sounds, non tender, soft Extremities: non-tender, no pedal edema Neurologic/Psychiatric: no motor/sensory deficits, oriented x 3, + pertinent finding (more alert today.) Skin: warm/dry (Tara Noonan PA-C) Laboratory Results 02/04/17 08:02 Red Blood Count 3.22, Mean Corpuscular Volume 98.4, Mean Corpuscular Hemoglobin 33.2, Mean Corpuscular Hemoglobin Concent 33.8, Mean Platelet Volume 8.4, Neutrophils (%) (Auto) 73.7, Lymphocytes (%) (Auto) 11.8, Monocytes (%) (Auto) 12.6, Eosinophils (%) (Auto) 1.1, Basophils (%) (Auto) 0.2, Neutrophils # (Auto ) 9.07, Lymphocytes # (Auto) 1.45, Monocytes # (Auto) 1.55, Eosinophils # (Auto ) 0.14, Basophils # (Auto) 0.03 02/04/17 08:02 Test 02/04/17 08:02 White Blood Count 12.32 K/uL (4.8-10.8) Red Blood Count 3.22 M/uL (4.2-5.4) Hemoglobin 10.7 g/dL (12.0-16.0) Hematocrit 31.7 % (37-47) Mean Corpuscular Volume 98.4 fL (80-100) Mean Corpuscular Hemoglobin 33.2 pg (25-34) Mean Corpuscular Hemoglobin Concent 33.8 g/dl (32-36) Platelet Count 299 K/uL (130-400) Mean Platelet Volume 8.4 fL (7.4-10.4) Neutrophils (%) (Auto) 73.7 % Lymphocytes (%) (Auto) 11.8 % Monocytes (%) (Auto) 12.6 % Eosinophils (%) (Auto) 1.1 % Basophils (%) (Auto) 0.2 % Neutrophils # (Auto) 9.07 K/uL (1.4-6.5) Lymphocytes # (Auto) 1.45 K/uL (1.2-3.4) Monocytes # (Auto) 1.55 K/uL (0.11-0.59) Eosinophils # (Auto) 0.14 K/uL (0-0.5) Basophils # (Auto) 0.03 K/uL (0-0.2) RDW Standard Deviation 52.2 fL (36.4-46.3) RDW Coefficient of Variation 14.5 % (11.5-14.5) Immature Granulocyte % (Auto) 0.6 % Immature Granulocyte # (Auto) 0.08 K/uL (0.00-0.02) Anion Gap 6.0 mmol/L (3-11) Est Creatinine Clear Calc Drug Dose 141.1 ml/min Estimated GFR () 134.0 Estimated GFR (Non- 115.6 BUN/Creatinine Ratio 6.1 (10-20) Calcium Level 8.1 mg/dl (8.5-10.1) 25-Hydroxy Vitamin D Total 37.3 ng/ml (30-100) Procalcitonin 2.15 ng/ml (0-0.5) Vancomycin Level Trough 8.1 mcg/ml (SEE COMMENT) Last 24 Hours Test 02/04/17 08:02 White Blood Count 12.32 K/uL Red Blood Count 3.22 M/uL Hemoglobin 10.7 g/dL Hematocrit 31.7 % Mean Corpuscular Volume 98.4 fL Mean Corpuscular Hemoglobin 33.2 pg Mean Corpuscular Hemoglobin Concent 33.8 g/dl Platelet Count 299 K/uL Mean Platelet Volume 8.4 fL Neutrophils (%) (Auto) 73.7 % Lymphocytes (%) (Auto) 11.8 % Monocytes (%) (Auto) 12.6 % Eosinophils (%) (Auto) 1.1 % Basophils (%) (Auto) 0.2 % Neutrophils # (Auto) 9.07 K/uL Lymphocytes # (Auto) 1.45 K/uL Monocytes # (Auto) 1.55 K/uL Eosinophils # (Auto) 0.14 K/uL Basophils # (Auto) 0.03 K/uL RDW Standard Deviation 52.2 fL RDW Coefficient of Variation 14.5 % Immature Granulocyte % (Auto) 0.6 % Immature Granulocyte # (Auto) 0.08 K/uL Sodium Level 139 mmol/L Potassium Level 2.9 mmol/L Chloride Level 105 mmol/L Carbon Dioxide Level 28 mmol/L Anion Gap 6.0 mmol/L Blood Urea Nitrogen 2 mg/dl Creatinine 0.33 mg/dl Est Creatinine Clear Calc Drug Dose 141.1 ml/min Estimated GFR () 134.0 Estimated GFR (Non- 115.6 BUN/Creatinine Ratio 6.1 Random Glucose 112 mg/dl Calcium Level 8.1 mg/dl 25-Hydroxy Vitamin D Total 37.3 ng/ml Procalcitonin 2.15 ng/ml Vancomycin Level Trough 8.1 mcg/ml (Tara Noonan, PA-C) Assessment and Plan 66 y/o female presented to the ER on 02/01 with fever productive cough-->PNA per xray Sepsis secondary to possible hospital acquired PNA-Continues to improve clinically -continue levaquin, cefepime, vanco--asked to dc vanco per pharm as she has been subtherapeutic. I would continue for at least one more day given how fast and ill pt became. -continue nebs -would continue Tele monitoring one more day Hypotension-BP stable now -d/c IVF given few rales on exam Hypokalemia -Kphos 15 mmol now in addition to KCl 10 mEq 10 mg IV now -begin KCl 40 mg po daily tmrw -recheck PRP at 1700 Severe Protein malnutrition/poor po intake -BOOST ordered TID -nutrition consult Seizure d/o-stable -continue Lamictal 150 mg po BID COPD -contiue Spiriva and Symbicort Chronic back pain-appears comfortable -narcs started at lower dose. Morphine ER 15 mg po BID-->would not change as pt is less sedated -ENCOURAGE AMBULATION/PT/OT sacral decub from sedentary lifestyle -wound following Depression -continue Seroquel DVT prophylaxis -Heparin 5000 u subQ TID -TEDS, SCDs CODE STATUS -LEVEL I FULL CODE DISPO -tele monitoring for one more day (Tara Noonan, PA-C) Attending Attestation: Pt seen/examined, chart reviewed, and care plan d/w NHAN Noonan. I agree w/ the tamez components of her documentation. Pt still w/ poor appetite and is very weak. Still with coughing spells and sputum production. +GRANADO. Tele stable overnight. VSS O2 sats acceptable on NC O2 gen - looks much older than stated age, NAD neck - no JVD mouth - MMM heart - RRR, s1, s2 lungs - right basilar rales, course BS b/l, wheezing b/l abd - soft, NT ext - no edema A/P: 1. severe sepsis 2nd to staph aureus pneumonia 2. staph aureus pneumonia - d/c cefepime; can likely d/c the levaquin too; continue vanco if this is MRSA then zyvox if MSSA then narrow to ceftriaxone day #4 of abx today 3. COPD - will exacerbation - start po prednisone; nebs; mucinex; pulm toilet 4. hypokalemia - replace, repeat K am 5. hypophosphatemia - replace, repeat phos AM PT, OT Luisito Blackmon MD (Luisito Blackmon MD)
[2017-02-04] MEDS: BOOST VANILLA PO SCH ×4 (14:29→19:54)
[2017-02-04] MEDS: GUAIFENESIN 600 MG TABCR PO SCH ×2 (14:29→21:28)
[2017-02-04 18:00] LABS: BUN/CREATININE RATIO 5.8 (10-20); CALCIUM 7.2 mg/dl (8.5-10.1); CREATININE 0.41 mg/dl (0.60-1.20); POTASSIUM 3.4 mmol/L (3.5-5.1)
[2017-02-04] MEDS ORDERED: POTASSIUM CHLORIDE 20 MEQ TABCR PO STA (18:17)
[2017-02-04] MEDS: ACETAMINOPHEN 325 MG TAB PO PRN (19:55)
[2017-02-04] MEDS: ROSUVASTATIN CALCIUM 5 MG TAB PO SCH (21:28)
[2017-02-04] MEDS: QUETIAPINE FUMARATE 100 MG TAB PO SCH (21:29)
[2017-02-05] VITALS (10 sets, daily range): BP systolic 112–137; BP diastolic 61–78; PULSE 69–95; TEMP 36.9; O2SAT 90–98
[2017-02-05] MEDS: VANCOMYCIN INJ 1,000 MG in SODIUM CHLORIDE 0.9% 250ML 250 ML IV SCH (00:02)
[2017-02-05] MEDS ORDERED: VANCOMYCIN TROUGH SCH (07:30)
[2017-02-05] MEDS: ALBUT/IPRATROP 3MG/0.5MG NEB 3 ML VIAL INH SCH ×4 (07:32→19:39)
[2017-02-05] MEDS: UMECLIDINIUM BROMIDE SCH ×2 (08:00→16:00)
[2017-02-05] MEDS: BOOST VANILLA PO SCH ×6 (08:18→21:32)
[2017-02-05] MEDS: TIOTROPIUM BROMIDE 5 PUFF/90 MCG INH INH SCH (08:21)
[2017-02-05] MEDS: LACTULOSE SYRUP 30 GM/45 ML UDP PO SCH (08:21)
[2017-02-05] MEDS: POTASSIUM CHLORIDE 20 MEQ TABCR PO SCH (08:21)
[2017-02-05 08:22] LABS: BUN/CREATININE RATIO 11.5 (10-20); CREATININE 0.33 mg/dl (0.60-1.20); POTASSIUM 3.7 mmol/L (3.5-5.1)
[2017-02-05] MEDS: NICOTINE 7 MG/24 HR TDSY TD SCH (08:22)
[2017-02-05] MEDS: GUAIFENESIN 600 MG TABCR PO SCH ×2 (08:22→21:28)
[2017-02-05] MEDS: CLOPIDOGREL BISULFATE 75 MG TAB PO SCH (08:22)
[2017-02-05] MEDS: FAMOTIDINE 20 MG TAB PO SCH (08:22)
[2017-02-05 08:24] LABS: PHOSPHORUS 2.3 mg/dl (2.5-4.9)
[2017-02-05] MEDS: BACLOFEN 10 MG TAB PO PRN (08:24)
[2017-02-05] MEDS: MoRPHine SULFATE CR 15 MG TAB (MS CONTIN) PO SCH ×2 (08:24→21:28)
[2017-02-05] MEDS: HEPARIN SOD 5000 UNIT/0.5 ML CARP SQ SCH ×3 (08:34→21:31)
[2017-02-05 09:01] LABS: CALCIUM 8.2 mg/dl (8.5-10.1)
[2017-02-05] MEDS: POT PHOSPHATE MONOBASIC W/ SOD TAB PO SCH ×4 (10:50→21:28)
[2017-02-05] MEDS: CEFTRIAXONE SOD INJ 2,000 MG in DEXTROSE 5% 50ML 50 ML IV SCH (10:50)
[2017-02-05] MEDS ORDERED: BISACODYL 10 MG SUPP PR STA (11:41)
[2017-02-05] MEDS: ACETAMINOPHEN 325 MG TAB PO PRN (13:13)
[2017-02-05] MEDS: FLUTICASONE/SALMETEROL 250/50 (ADVAIR) 14 PUFF/1 INHALER INH SCH ×2 (14:15→21:28)
--- NOTE | 2017-02-05 21:06 | Progress Note ---
Subjective Date of Service: Feb 05, 2017. Subjective Pt evaluation today including: conversation w/ patient, physical exam, chart review, lab review, review of inpatient medication list Pain: denies PO Intake: poor, but states "it's always like that" Voiding: no voiding problems tele overnight normal feeling better slept better overnight less cough and congestion but still feeling poorly from respiratory standpoint anxious to get home to her dogs asks to shower today Problem List Medical Problems: (1) Adv eff opiates Status: Acute (2) Altered mental status Status: Acute (3) CVA (cerebral vascular accident) Status: Acute (4) Right sided weakness Status: Acute (5) UTI (urinary tract infection) Status: Acute Review of Systems Constitutional: No chills, No fever Respiratory: No dyspnea at rest Cardiac: + chest pain (ribs, from coughing), No orthopnea Abdomen: + constipation, No pain Objective Vital Signs Date Time Temp Pulse Resp B/P Pulse Ox O2 Delivery O2 Flow Rate FiO2 02/05/17 19:39 87 18 93 Nasal Cannula 3.0 02/05/17 16:07 84 18 91 Nasal Cannula 2.0 02/05/17 16:00 Nasal Cannula 2.0 02/05/17 14:53 36.9 78 20 121/75 93 2.0 02/05/17 12:00 Nasal Cannula 2.0 02/05/17 11:53 36.9 82 18 93 2.0 02/05/17 11:40 36.9 95 22 126/78 90 Nasal Cannula 2.0 02/05/17 11:37 82 18 93 Nasal Cannula 2.0 02/05/17 08:22 36.9 86 19 112/61 92 Nasal Cannula 2.0 02/05/17 08:01 95 Nasal Cannula 2.0 02/05/17 07:32 82 18 95 Nasal Cannula 2.0 02/05/17 04:00 36.9 69 18 137/71 98 Nasal Cannula 3.0 02/05/17 04:00 Nasal Cannula 2.0 02/05/17 00:01 Nasal Cannula 2.0 02/04/17 22:50 36.9 74 18 95/56 92 Nasal Cannula 2.0 Physical Exam General Appearance: no apparent distress ENT: pharynx normal Neck: no JVD Respiratory/Chest: no respiratory distress, no accessory muscle use, + crackles (right base), + wheezing Cardiovascular: regular rate, rhythm, no gallop, no murmur Abdomen: normal bowel sounds, non tender, soft, no organomegaly Extremities: no pedal edema Neurologic/Psychiatric: alert, oriented x 3, + depressed affect Laboratory Results Last 24 Hours Test 02/05/17 07:35 Sodium Level 143 mmol/L Potassium Level 3.7 mmol/L Chloride Level 108 mmol/L Carbon Dioxide Level 28 mmol/L Anion Gap 7.0 mmol/L Blood Urea Nitrogen 4 mg/dl Creatinine 0.33 mg/dl Est Creatinine Clear Calc Drug Dose 142.1 ml/min Estimated GFR () 134.0 Estimated GFR (Non- 115.6 BUN/Creatinine Ratio 11.5 Random Glucose 127 mg/dl Calcium Level 8.2 mg/dl Phosphorus Level 2.3 mg/dl Vancomycin Level Trough 11.4 mcg/ml Assessment and Plan 66yo female with: 1. severe sepsis 2nd to staph aureus pneumonia - resolving. 2. staph aureus pneumonia - day #5 of abx today. narrow her abx to IV rocephin 2gm daily. can likely change to PO abx next 48 hours. Rx for 10 days. 3. COPD w/ exacerbation - day #2 of prednisone; nebs; mucinex; pulm toilet. add advair try to wean O2 4. hypokalemia - replaced now normal. 5. hypophosphatemia - replace orally with phos; repeat level 48 hours 6. DVT proph - heparin TID. 7. chronic pain syndrome - cont home meds. 8. constipation - dulcolax suppos x 1 today. needs bowel regimen due to chronic narcs 9. chronic tobacco dependence - counseled to quit. 10. mood d/o / depression - cont outpatient meds. progressing d/c tele, tx to med/surg ok to shower and/or leave the floor PT, OT Continued [facility] stay due to: multiple IV medications needed Discharge planning: home
[2017-02-05] MEDS: QUETIAPINE FUMARATE 100 MG TAB PO SCH (21:28)
[2017-02-05] MEDS: ROSUVASTATIN CALCIUM 5 MG TAB PO SCH (21:28)
[2017-02-06] MEDS: BACLOFEN 10 MG TAB PO PRN (05:45)
[2017-02-06] MEDS: ACETAMINOPHEN 325 MG TAB PO PRN (06:29)
[2017-02-06] MEDS: ALBUT/IPRATROP 3MG/0.5MG NEB 3 ML VIAL INH SCH ×3 (07:34→14:26)
[2017-02-06 07:35] VITALS: PULSE 95; O2SAT 93
[2017-02-06 07:54] VITALS: BP 116/65; PULSE 98; TEMP 36.8; O2SAT 91
[2017-02-06] MEDS: BOOST VANILLA PO SCH ×4 (08:00→12:16)
[2017-02-06] MEDS: LACTULOSE SYRUP 30 GM/45 ML UDP PO SCH (08:00)
[2017-02-06] MEDS: UMECLIDINIUM BROMIDE SCH ×2 (08:00)
[2017-02-06] MEDS: NICOTINE 7 MG/24 HR TDSY TD SCH ×2 (08:00→15:55)
[2017-02-06] MEDS: GUAIFENESIN 600 MG TABCR PO SCH (08:01)
[2017-02-06] MEDS: MoRPHine SULFATE CR 15 MG TAB (MS CONTIN) PO SCH (08:01)
[2017-02-06] MEDS: CLOPIDOGREL BISULFATE 75 MG TAB PO SCH (08:02)
[2017-02-06] MEDS: POT PHOSPHATE MONOBASIC W/ SOD TAB PO SCH ×2 (08:02→12:16)
[2017-02-06] MEDS: FAMOTIDINE 20 MG TAB PO SCH (08:02)
[2017-02-06] MEDS: POTASSIUM CHLORIDE 20 MEQ TABCR PO SCH (08:03)
[2017-02-06] MEDS: FLUTICASONE/SALMETEROL 250/50 (ADVAIR) 14 PUFF/1 INHALER INH SCH (08:04)
[2017-02-06] MEDS: TIOTROPIUM BROMIDE 5 PUFF/90 MCG INH INH SCH (08:04)
[2017-02-06] MEDS: HEPARIN SOD 5000 UNIT/0.5 ML CARP SQ SCH ×2 (08:06→14:00)
[2017-02-06] MEDS: CEFTRIAXONE SOD INJ 2,000 MG in DEXTROSE 5% 50ML 50 ML IV SCH (10:11)
[2017-02-06 11:30] VITALS: PULSE 90; O2SAT 94
[2017-02-06 14:26] VITALS: PULSE 91; O2SAT 90
[2017-02-06] MEDS ORDERED: TIOT1AER2 INH (14:41)
[2017-02-06] MEDS ORDERED: GFNSR600 PO (14:41)
[2017-02-06] MEDS ORDERED: POTTAB2 PO (14:41)
[2017-02-06] MEDS ORDERED: PRED10TA PO (14:41)
[2017-02-06] MEDS ORDERED: ADVIN25/60 INH (14:41)
[2017-02-06] MEDS ORDERED: CEFD300C2 PO (14:41)
[2017-02-06] MEDS ORDERED: NCDT21 TOP (14:41)
--- NOTE | 2017-02-06 14:53 | Discharge Instructions ---
Discharge Instructions Date of Service Feb 06, 2017. Admission Reason for Admission: Pneumonia, Sepsis Discharge Discharge Diagnosis / Problem: right-sided pneumonia - improved; COPD exacerbation. Discharge Goals Goal(s): Improve disease control, Learn about illness, Diagnostic testing, Therapeutic intervention Activity Recommendations Activity Limitations: as noted below For the next 5-7 days, as you recover from your illness, please avoid heavy exertional activities (heavy yard work or house work, etc). Light walks, etc are ok. . Instructions / Follow-Up Instructions / Follow-Up From Dr. Blackmon - 1. For your right-sided pneumonia - * take 4 more days of antibiotic * omnicef 300mg twice daily has been sent to [facility] * begin this TOMORROW on 02/07/17 * antibiotics can give you diarrhea; recommend eating some extra yogurt daily for the next few days or taking a probiotic supplement; your pharmacist can recommend a probiotic to you * very rarely can this particular antibiotic cause your stools to look dark red ; this is NOT blood but rather a pigment from the antibiotic 2. COPD with exacerbation (bronchitis / flare-up of the COPD) - * take a 10-day course of prednisone * begin this TOMORROW on 02/07/17 * use your albuterol nebulizer treatments every 6 hours SCHEDULED for the next week or so; after that you can use them as needed 3. Daily medications for your COPD - * advair (this is a purple disc) 1 puff TWICE A DAY every day * rinse your mouth with water after use * prescription sent to [facility] for you * spiriva - 1 puff once daily * prescription sent to [facility] for you * any other inhalers - please put them aside for now * the only exception is proair - you can use this on an as needed basis for quick relief of your COPD symptoms 4. Tobacco use - * Please quit smoking if at all possible * use the nicoderm patch daily for the next 30 days * do not smoke and use the patch at the same time * if you restart smoking please stop the patch 5. Please stop your losartan blood pressure medication as your blood pressures have been normal without it. 6. You do not need oxygen at this time. HOWEVER, you are very close to needing this. With continued smoking you will likely end up on oxygen in the future. Quitting tobacco will increase your odds that you will not end up on oxygen. 7. For prevention and treatment of constipation - recommend a combination of once daily miralax -AND- either senna OR dulcolax. 8. Please call Dr. Horn's office tomorrow to schedule follow-up appointment for the middle of this week. 9. Return to [facility] with any worsening shortness of breath, recurrent fever over 100.5 degrees, etc. 10. You may purchase tnel-dus-rdafqne mucinex and take up to twice a day for your cough & congestion. Current Hospital Diet Patient's current hospital diet: AHA Diet (Heart Healthy) Discharge Diet Recommended Diet: Regular Diet Procedures Procedures Performed: multiple chest x-rays with right sided pneumonia Pending Studies Studies pending at discharge: no Medical Emergencies . Who to Call and When: Medical Emergencies: If at any time you feel your situation is an emergency, please call 911 immediately. . Non-Emergent Contact Non-Emergency issues call your: Primary Care Provider Call Non-Emergent contact if: temperature is above 100.5, your pain is not controlled, your pain is worsening, your pain is unusual for you, your pain is concerning you, you have any medication questions . . "Provider Documentation" section prepared by Luisito Blackmon. . VTE Core Measure Inpt VTE Proph given/why not?: Enoxaparin (Lovenox)SQ
[2017-02-06 15:10] VITALS: BP 116/65; PULSE 91; TEMP 36.8; O2SAT 90
--- NOTE | 2017-02-08 13:43 | Discharge Summary ---
Discharge Summary Date of Service Feb 08, 2017. Discharge Summary Admission Date: Feb 01, 2017 at 09:54 Discharge Date: Feb 06, 2017 Discharge Disposition: Home Principal Diagnosis: right sided staph aureus pneumonia Problems/Secondary Diagnoses: 1. COPD with exacerbation resulting in acute hypoxic respiratory failure 2. chronic tobacco dependence 3. weight loss 4. severe sepsis 2nd to staph aureus pneumonia 5. hypokalemia, hypophosphatemia 6. acute kidney injury 2nd to #4 - resolved 7. chronic pain syndrome 8. constipation 9. depression 10. hyperlipidemia 11. h/o HTN, BPs now normal off medication 12. h/o reflex sympathetic dystrophy Immunizations: History of Tetanus Vaccine?: Unknown History of Pneumococcal: Unknown History of Hepatitis B Vaccine: Unknown Consultations: critical care - Shirley Ndiaye MD PT, OT Medication Reconciliation New Medications: Cefdinir (Omnicef) 300 Mg Cap 300 MG PO Q12H for 4 Days, #8 CAP 0 Refills begin 02/07/17 Nicotine (Nicotine) 1 Patch Tdsy 21 MG TOP DAILY for 30 Days, #30 PATCH 0 Refills start 02/07/17 & change daily. Prednisone Tab (Prednisone) 10 Mg Tab 10 MG PO DIRECTED, #30 TAB 0 Refills start 02/07/17: 5 tabs QD x 2 days, 4 tabs QD x 2 days, 3 tabs QD x 2 days, 2 tabs QD x 2 days, 1 tab QD x 2 days. Fluticasone Prop/Salmeterol (Advair Diskus 250/50 60 Dose) 1 Ea Aerp 1 PUFFS INH BID for 30 Days, #1 INHALER 2 Refills rinse your mouth with water after each use. Guaifenesin Ext Rel (Mucinex Ext Rel) 600 Mg Tabcr 1200 MG PO Q12 for 7 Days, 0 Refills purchase qevn-pib-dlceoqa Pot Phosphate Monobasic W/ Sod (Phospha 250 Neutral) 1 Tab Tab 1 TAB PO QID for 5 Days, #20 TAB 0 Refills Changed Medications: Tiotropium Keystone Monohydrate (Spiriva Respimat) 1.25 Mcg/Act Aer 1 PUFF INH DAILY, #1 INHALER 2 Refills (Changed from: 2 PUFF; 4; Refills: ) Continued Medications: Albuterol Sulf (Proventil 0.083% 2.5MG/3ML) 2.5 Mg/3 Ml Nebu 2.5 MG INH QID, EA Albuterol Sulfate (Proair Respiclick) 108 Mcg/Act Aer Baclofen (Lioresal) 10 Mg Tab 10 MG PO TID PRN for Muscle Spasms, #90 Biotin (Biotin 5000) 5 Mg Cap 5000 MCG PO DAILY Clonazepam (Klonopin) 1 Mg Tab 1 MG PO QPM PRN for Anxiety and/or Sedation, TAB Clopidogrel Bisulfate (Plavix) 75 Mg Tab 75 MG PO DAILY, TAB Diphenhydramine Hcl (Benadryl Allergy) 25 Mg Tab 25 MG PO Q6 PRN for Ergocalciferol (Vitamin D) 50,000 Interunit Cap 1 CAP PO WK, #8 Famotidine (Pepcid) 20 Mg Tab 20 MG PO DAILY, #90 Hydrocodone/Acetaminophen 7.5MG/325MG ([place] 7.5MG/325MG) Tab 1 TAB PO TID PRN for Pain, TAB PRN PAIN Lactulose (Lactulose) 20 Gm/30 Ml Syrp 15-30 ML PO DAILY Lamotrigine (Lamictal) 150 Mg Tab 150 MG PO BID, #60 Melatonin-Pyridoxine (Melatonin) 1 Tab Tab 10 MG PO HS Meloxicam (Mobic) 7.5 Mg Tab 7.5 MG PO DAILY PRN for Pain, #30 Morphine Sulfate (Morphine Sulfate Er) 30 Mg Tab 30 MG PO Q12, #60 Quetiapine Fumarate (Seroquel) 100 Mg Tab 100 MG PO HS, #30 Rosuvastatin Calcium (Crestor) 5 Mg Tab 5 MG PO HS, TAB Zinc Gluconate (Zinc) 100 Mg Tab 100 MG PO DAILY Discontinued Medications: Budesonide/Formoterol Fumarate (Symbicort 160/4.5 Inhaler) 120 Puffs/ Aero 2 PUFFS INH BID, INHALER Losartan Potassium (Losartan Potassium) 50 Mg Tab 25 MG PO DAILY, #90 Umeclidinium Keystone (Incruse Ellipta) 62.5 Mcg/Inh Inh 1 PUFF INH DAILY, #30 Discharge Exam Physical Exam: General Appearance: no apparent distress, + pertinent finding (looks much older than stated age) ENT: pharynx normal Neck: no JVD Respiratory/Chest: no respiratory distress, no accessory muscle use, + crackles (extensive, right base), + wheezing (end-exp, mild) Cardiovascular: regular rate, rhythm, no gallop, no murmur, normal peripheral pulses Abdomen / GI: normal bowel sounds, non tender, soft, no organomegaly Extremities: no pedal edema Neurologic/Psychiatric: alert, oriented x 3 Skin: no rash Hospital Course HISTORY OF PRESENT ILLNESS: 66yo female with history of COPD, chronic tobacco dependence, and chronic back pain who presented to the ED with complaints of 4-5 days of weakness, lethargy, poor appetite and productive cough. Her cough started a few days ago, productive of dark yellow/brown sputum, occasionally some bloody streaks. She typically has a dry cough with her COPD so the sputum is a new change. She admits to feeling more short of breath, especially if she tries to walk. For the most part she has been sleeping. Very little appetite and not drinking enough water according to family. She has had a fever, chills and night sweats. She is concerned about weight loss over the past few months, says she used to weigh 210 pounds and now she is closer to 120-130 pounds. She has not been trying to lose weight. In the ED she had a fever, tachypnea, leukocytosis and a CXR showed a right lower lobe infiltrate. Given Levaquin and Aztreonam and nebulizer treatment. She has been compliant with her medications, specifically her inhalers. She takes Morphine for back pain and would like to try to stop. Her family is concerned with her needing pain medications. She continues to smoke 1 ppd despite feeling ill and having a productive cough. I asked about her penicillin allergy, she reports it was a rash and she thinks she tolerated Keflex in the past. HOSPITAL COURSE: The patient's acute hypoxic respiratory failure and severe sepsis was secondary to methicillin-sensitive staph aureus (MSSA) right-sided pneumonia. Her course was complicated by COPD with exacerbation. She was transferred to the ICU on hospital day #2 after she had multiple low blood pressure readings. Fortunately she did not require anything but IV hydration while in the ICU. After transitioning back to the medical floor she made steady improvement in all pulmonary symptoms. She was treated with broad-spectrum IV antibiotic therapy until the final sputum culture result showed MSSA. At that time she was narrowed to cephalosporins. She also received IV steroids, nebs, inhalers, and other supportive care. Over time her O2 was weaned off. Two-step oxygen test on day of discharge did NOT reveal a need for ambulatory oxygen at home. She will complete 4 more days of antibiotic therapy and a prednisone taper after discharge. The patient was confused on which inhalers to use at home for chronic use. It appears she had been using multiple controller agents. We suggested a combination of advair, spiriva, and duonebs (or albuterol) q6h for chronic usage. Smoking cessation was heavily advised in light of her severe COPD. All other chronic medical problems remained stable while here. Electrolytes were replaced as needed throughout her stay. She will need follow-up not only for the pneumonia/COPD with repeat imaging in 4 weeks but also additional work-up for the recent weight loss. Total Time Spent: Greater than 30 minutes This includes examination of the patient, discharge planning, medication reconciliation, and communication with other providers. Discharge Instructions Please refer to the electronic Patient Visit Report (Discharge Instructions) for additional information. Follow-Up see Dr. Horn, PCP, within 3-5 days of discharge Additional Copies To Rivas Horn M.D.
[2017-02-15] MEDS ORDERED: ONDA4TAB46 PO (16:00)
[2017-02-15] MEDS ORDERED: VTMD PO (16:00)
[2017-02-15] MEDS ORDERED: LACT10SO17 PO (16:00)
[2017-02-15] MEDS ORDERED: TIOT1AER2 INH (16:00)
[2017-02-15] MEDS ORDERED: SYMIN160 INH (16:00)
[2017-02-15] MEDS ORDERED: LOSA50TA6 PO (16:00)
[2017-02-15] MEDS ORDERED: MELA1TAB3 PO (16:00)
[2017-02-15] MEDS ORDERED: UMEC1INH INH (16:00)
[2017-02-15] MEDS ORDERED: LAMO150T32 PO (16:00)
== END 2017-02-06 16:04 | disposition home health service (06) | DRG 871 ==
LOC: ENRESERVDT → ENRESERVTM → C.EDB 06:36 → C.MED 09:54 → C.MSICU 02-02 11:52 → C.2T 02-03 12:41 → C.4E 02-05 11:47
PROVIDERS: ADMIT Internal Medicine; ATTEND Internal Medicine
DX: A41.9 Sepsis, unspecified organism (principal); J15.211 Pneumonia due to Methicillin susceptible Staphylococcus aureus; J96.21 Acute and chronic respiratory failure with hypoxia; E43 Unspecified severe protein-calorie malnutrition; Z83.6 Family history of other diseases of the respiratory system; E87.6 Hypokalemia; J44.9 Chronic obstructive pulmonary disease, unspecified; E86.0 Dehydration; R63.4 Abnormal weight loss; M54.9 Dorsalgia, unspecified; G89.29 Other chronic pain; F17.200 Nicotine dependence, unspecified, uncomplicated; I95.9 Hypotension, unspecified; I10 Essential (primary) hypertension; L89.152 Pressure ulcer of sacral region, stage 2; Z79.02 Long term (current) use of antithrombotics/antiplatelets; F32.9 Major depressive disorder, single episode, unspecified; G40.909 Epilepsy, unspecified, not intractable, without status epilepticus; E83.39 Other disorders of phosphorus metabolism

== ENCOUNTER → 2017-02-11 | Outpatient (CLI) | payer OTHER ==
[~2017-02-11] MED LIST changes: +ADVIN25/60 INH; +ALBINS/ INH; +ALBU18002 INH; +CEFD300C2 PO; +CLON1TAB3 PO; -CZR50 PO; +GFNSR600 PO; +LACT10SO17 PO; +LCTL30 PO; +LOSA50TA6 PO; +MELA1TAB3 PO; +NCDT21 TOP; +ONDA4TAB46 PO; +POTTAB2 PO; +PRED10TA PO; -PROAIR INH; +ZINC1TAB4 PO; -ZINC50TA3 PO
[2017-02-11 16:44] LABS: BASO % 0.1 %; BASO ABS # 0.01 K/uL (0-0.2); COMPLETE YES; HEMATOCRIT 29.4 % (37-47); IG% 0.7 %; LYMPH % 7.8 %; LYMPH ABS # 0.84 K/uL (1.2-3.4); MEAN CELL VOLUME 99.7 fL (80-100); MEAN CORPUSCULAR HEMOGLOBIN 33.2 pg (25-34); MEAN CORPUSCULAR HGB CONC 33.3 g/dl (32-36); MEAN PLATELET VOLUME 8.2 fL (7.4-10.4); MONO % 1.9 %; NEUT % 89.5 %; PLATELET COUNT 518 K/uL (130-400); RED BLOOD COUNT 2.95 M/uL (4.2-5.4); WHITE BLOOD COUNT 10.79 K/uL (4.8-10.8)
== END | disposition home or self-care (01) ==
LOC: C.LABBFT 15:54
PROVIDERS: ATTEND Physician Assistant Medical
DX: J44.9 Chronic obstructive pulmonary disease, unspecified (principal)

== ENCOUNTER → 2017-02-14 | Outpatient (CLI) | payer OTHER ==
--- NOTE | 2017-02-14 10:39 | DIAGNOSTIC IMAGING REPORT ---
Venous Doppler left leg LEFT VENOUS DOPP LOWER EXT UNILAT CLINICAL HISTORY: LEG EDEMA pain TECHNIQUE: Venous Doppler COMPARISON STUDY: None FINDINGS: Normal study IMPRESSION: Normal study Electronically signed by: Yariel Smith M.D. 02/14/2017 10:38 AM Dictated Date/Time: 02/14/2017 10:37 AM
== END | disposition home or self-care (01) ==
LOC: C.ULTRBC 09:46
PROVIDERS: ATTEND Physician Assistant Medical
DX: R60.0 Localized edema (principal)

== ENCOUNTER → 2017-02-22 | Day surgery (SDC) | payer OTHER ==
[2017-02-15 15:42] VITALS: Ht 152.4 cm; Wt 54.5 kg
[~2017-02-22] VITALS: Ht 152.4 cm; Wt 54.5 kg
[~2017-02-22] MED LIST changes: -CEFD300C2 PO; -CLOP1TAB5 PO; -DIPH1TAB87 PO; -GFNSR600 PO; -LCTL30 PO; +LIDOCAINE HCL 2% 2 ML VIAL (20MG/ML) ONE; -MELA1TAB22 PO; -NCDT21 TOP; +ONDANSETRON INJ 2 MG/ML 2 ML VIAL IV PRN; -POTTAB2 PO; -PRED10TA PO; +PROPOFOL IV EMULSION 10 MG/ML 20 ML VIAL IV ONE
--- NOTE | 2017-02-22 10:56 | Endo History and Physical ---
History & Physical Date of Service: February 22, 2017. Chief Complaint: [place] loss Referring Physician: Dr. Horn History of Present Illness History of weight loss, referred for colonoscopy today to screen for evidence of CRC./ Past Medical History Arthritis, Seizure Disorder, High Cholesterol, Hypertension, COPD, Thyroid Disease, Depression Past Surgical History Hx Cardiac Surgery: No Hx Internal Defibrillator: No Hx Pacemaker: No Hx Abdominal Surgery: Yes (LAMAR, COLON RESECTION) Hx of Implantable Prosthesis: No Hx Post-Op Nausea and Vomiting: No Hx Cancer Surgery: Yes (RYAN BSO) Hx Thoracic Surgery: No Hx Orthopedic: Yes (LUMBAR SURGERIERS X 5, CERVICAL FUSION (GOOD ROM)) Hx Urinary Tract Surgery: No Family History None Social History Smoking Status: Current Every Day Smoker Hx Substance Use: Yes (SEE MED REC) Hx Alcohol Use: Yes (OCCASIONALLY) Allergies Coded Allergies: Penicillins (Verified Allergy, Unknown, SICK/RASH, 02/22/17) PATIENT IS NOT ALLERGIC TO PCN - HAS BEEN ON KEFLEX BEFORE PER DR. VALLE - ONLY NAUSEA Current Medications Reported Home Medications Medications Dose Route/Sig Max Daily Dose Days Date Category Dose Instructions Vitamin D (Ergocalciferol) 50,000 Interunit Cap 1 Cap PO WK 02/15/17 Reported Symbicort 160/4.5 Inhaler (Budesonide/Formoterol Fumarate) Aero 2 Puffs INH BID 02/15/17 Reported Spiriva Respimat (Tiotropium [place] Monohydrate) 1.25 Mcg/Act Aer 1 Puff INH QAM 02/15/17 Reported Zofran (Ondansetron HCl) 4 Mg Tab 4 Mg PO Q8H PRN 02/15/17 Reported Melatonin (Melatonin-Pyridoxine) 1 Tab Tab 10 Mg PO HS 02/15/17 Reported Cozaar (Losartan Potassium) 50 Mg Tab 25 Mg PO QAM 02/15/17 Reported Lamictal (Lamotrigine) 150 Mg Tab 150 Mg PO BID 02/15/17 Reported Chronulac (Lactulose) 10 Gm/15 Ml Syrp 1 Dose PO BID 02/15/17 Reported Incruse Ellipta (Umeclidinium [place]) 62.5 Mcg/Inh Inh 1 Puff INH QAM 02/15/17 Reported Advair Diskus 250/50 60 Dose (Fluticasone Prop/Salmeterol) 1 Ea Aerp 1 Puffs INH BID 30 02/06/17 Rx rinse your mouth with water after each use. Klonopin (Clonazepam) 1 Mg Tab 1 Mg PO QPM PRN 02/01/17 Reported Proair Respiclick (Albuterol Sulfate) 108 Mcg/Act Aer 1 Puff INH QID PRN 02/01/17 Reported Proventil 0.083% 2.5MG/3ML (Albuterol Sulf) 2.5 Mg/3 Ml Nebu 2.5 Mg INH QID 02/01/17 Reported Zinc (Zinc Gluconate) 100 Mg Tab 100 Mg PO DAILY 02/01/17 Reported Morphine Sulfate Er (Morphine Sulfate) 30 Mg Tab 30 Mg PO Q12 12/18/16 Reported Mobic (Meloxicam) 7.5 Mg Tab 7.5 Mg PO DAILY PRN 12/18/16 Reported Pepcid (Famotidine) 20 Mg Tab 20 Mg PO QAM 12/18/16 Reported Lioresal (Baclofen) 10 Mg Tab 10 Mg PO TID PRN 12/18/16 Reported Seroquel (Quetiapine Fumarate) 100 Mg Tab 100 Mg PO HS 12/18/16 Reported [place] 7.5MG/325MG (Acetaminophen/Hydrocodone Bitart) Tab 1 Tab PO TID PRN 06/29/16 Reported PRN PAIN Biotin 5000 (Biotin) 5 Mg Cap 5,000 Mcg PO DAILY 07/18/14 Reported Crestor (Rosuvastatin Calcium) 5 Mg Tab 5 Mg PO HS 03/15/13 Reported Vital Signs Weight (Kilograms): 54.55 Height (Feet): 5 Height (Inches): 0 Physical Exam General Appearance: no apparent distress Respiratory/Chest: Auscultation: breath sounds normal Cardiovascular: Heart Auscultation: RRR Abdomen: Inspection & Palpation: soft Assessment and Plan Colonoscopy for evaluation of weight loss. We have discussed the risks to include bleeding, infection, perforation, pain, infection and missed polyps. Plan Colonoscopy
--- NOTE | 2017-02-22 11:35 | GI REPORT ---
Procedure Date: 02/22/2017 11:24 AM Procedure: Colonoscopy Indications: Screening for colorectal malignant neoplasm Medicines: Monitored Anesthesia Care Complications: No immediate complications. Estimated blood loss: Minimal. Estimated Blood Loss: Estimated blood loss was minimal. Procedure: Pre-Anesthesia Assessment: - Prior to the procedure, a History and Physical was performed, and patient medications, allergies and sensitivities were reviewed. The patient's tolerance of previous anesthesia was reviewed. - The risks and benefits of the procedure and the sedation options and risks were discussed with the patient. All questions were answered and informed consent was obtained. - Patient identification and proposed procedure were verified prior to the procedure by the physician, the nurse and the school bus inspector. The procedure was verified in the procedure room. - Pre-procedure physical examination revealed no contraindications to sedation. - ASA Grade Assessment: III - A patient with severe systemic disease. - After reviewing the risks and benefits, the patient was deemed in satisfactory condition to undergo the procedure. - The anesthesia plan was to use monitored anesthesia care (MAC). - Immediately prior to administration of medications, the patient was re-assessed for adequacy to receive sedatives. - The heart rate, respiratory rate, oxygen saturations, blood pressure, adequacy of pulmonary ventilation, and response to care were monitored throughout the procedure. - The physical status of the patient was re-assessed after the procedure. After I obtained informed consent, the scope was passed under direct vision. Throughout the procedure, the patient's blood pressure, pulse, and oxygen saturations were monitored continuously. The Scope was introduced through the anus with the intention of advancing to the cecum. The scope was advanced to the sigmoid colon before the procedure was aborted. Medications were given. The colonoscopy was performed without difficulty. The patient tolerated the procedure well. The quality of the bowel preparation was inadequate. Findings: The perianal and digital rectal examinations were normal. A large amount of semi-liquid semi-solid stool was found in the entire examined colon, precluding visualization. Impression: - Preparation of the colon was inadequate. - Stool in the entire examined colon. - No specimens collected. Recommendation: - Discharge patient to home (ambulatory). - Advance diet as tolerated today. - Repeat colonoscopy at the next available appointment because the bowel preparation was suboptimal. Maria G Tay D.O. Maria G Tay, 02/22/2017 11:35:02 AM This report has been signed electronically. Note Initiated On: 02/22/2017 11:24 AM I attest to the content of the Intraoperative Record and orders documented therein, exceptions below
--- NOTE | 2017-02-22 11:38 | Discharge Instructions ---
Endoscopy Patient Instructions Date / Procedure(s) Performed February 22, 2017. Colonoscopy Allergy Information Coded Allergies: Penicillins (Verified Allergy, Unknown, SICK/RASH, 02/22/17) PATIENT IS NOT ALLERGIC TO PCN - HAS BEEN ON KEFLEX BEFORE PER DR. VALLE - ONLY NAUSEA Discharge Date / Findings February 22, 2017. Unable to complete examination due to preparation Medication Instructions Reported Home Medications Medications Dose Route/Sig Max Daily Dose Days Date Category Dose Instructions Vitamin D (Ergocalciferol) 50,000 Interunit Cap 1 Cap PO WK 02/15/17 Reported Symbicort 160/4.5 Inhaler (Budesonide/Formoterol Fumarate) Aero 2 Puffs INH BID 02/15/17 Reported Spiriva Respimat (Tiotropium [place] Monohydrate) 1.25 Mcg/Act Aer 1 Puff INH QAM 02/15/17 Reported Zofran (Ondansetron HCl) 4 Mg Tab 4 Mg PO Q8H PRN 02/15/17 Reported Melatonin (Melatonin-Pyridoxine) 1 Tab Tab 10 Mg PO HS 02/15/17 Reported Cozaar (Losartan Potassium) 50 Mg Tab 25 Mg PO QAM 02/15/17 Reported Lamictal (Lamotrigine) 150 Mg Tab 150 Mg PO BID 02/15/17 Reported Chronulac (Lactulose) 10 Gm/15 Ml Syrp 1 Dose PO BID 02/15/17 Reported Incruse Ellipta (Umeclidinium [place]) 62.5 Mcg/Inh Inh 1 Puff INH QAM 02/15/17 Reported Advair Diskus 250/50 60 Dose (Fluticasone Prop/Salmeterol) 1 Ea Aerp 1 Puffs INH BID 30 02/06/17 Rx rinse your mouth with water after each use. Klonopin (Clonazepam) 1 Mg Tab 1 Mg PO QPM PRN 02/01/17 Reported Proair Respiclick (Albuterol Sulfate) 108 Mcg/Act Aer 1 Puff INH QID PRN 02/01/17 Reported Proventil 0.083% 2.5MG/3ML (Albuterol Sulf) 2.5 Mg/3 Ml Nebu 2.5 Mg INH QID 02/01/17 Reported Zinc (Zinc Gluconate) 100 Mg Tab 100 Mg PO DAILY 02/01/17 Reported Morphine Sulfate Er (Morphine Sulfate) 30 Mg Tab 30 Mg PO Q12 12/18/16 Reported Mobic (Meloxicam) 7.5 Mg Tab 7.5 Mg PO DAILY PRN 12/18/16 Reported Pepcid (Famotidine) 20 Mg Tab 20 Mg PO QAM 12/18/16 Reported Lioresal (Baclofen) 10 Mg Tab 10 Mg PO TID PRN 12/18/16 Reported Seroquel (Quetiapine Fumarate) 100 Mg Tab 100 Mg PO HS 12/18/16 Reported [place] 7.5MG/325MG (Acetaminophen/Hydrocodone Bitart) Tab 1 Tab PO TID PRN 06/29/16 Reported PRN PAIN Biotin 5000 (Biotin) 5 Mg Cap 5,000 Mcg PO DAILY 07/18/14 Reported Crestor (Rosuvastatin Calcium) 5 Mg Tab 5 Mg PO HS 03/15/13 Reported Provider Instructions Activity Restrictions - No exercising or heavy lifting for 24 hours. - Do not drink alcohol the day of the procedure. - Do not drive a car or operate machinery until the day after the procedure. - Do not make any important decisions or sign important papers in 24 hours after the procedure. Following Day: - Return to full activity which may include returning to work/school. Diet Start your diet with liquids and light foods (jello, soup, juice, toast). Then eat your usual diet if not nauseated. Treatment For Common After Affects For mild abdominal pain, bloating, or excessive gas: - Rest - Eat lightly - Lie on right side Follow-Up Information Repeat colonoscopy to be scheduled (2 day bowel preparation) Anesthesia Information What You Should Know You have had a procedure that required some medicine to reduce anxiety and discomfort. This treatment is called moderate sedation. After receiving the treatment, you may be sleepy, but you will be able to breathe on your own. The effects of the treatment may last for several hours. Follow these instructions along with Activity/Diet recommendations noted above: * Do NOT do anything where dizziness or clumsiness would be dangerous. * Rest quietly at home today, then you can be up and about tomorrow. * Have a responsible person stay with you the rest of today. * You may have had an I.V. today. If so, you may take the dressing off later today. Recommendations Call your doctor if: * Trouble breathing * Continuous vomiting for more than 24 hours * Temperature above 101 degrees * Severe abdominal pain or bloating * Pain not relieved by pain medicine ordered * There is increased drainage or redness from any incision * A large amount of rectal bleeding greater than 2-3 tablespoons. (If you had a polyp/s removed or have hemorrhoids, a small amount of blood - from the rectum is to be expected.) * You have any unanswered questions or concerns. IN THE EVENT OF A SERIOUS EMERGENCY, GO TO THE NEAREST EMERGENCY ROOM Your discharge instructions were prepared by provider Maria G Tay. Patient Instructions Signature Page Afshan Gomes Patient (or Guardian) Signature/Date: I have read and understand the instructions given to me by my caregivers. Caregiver/RN/Doctor Signature/Date: The above-named patient and/or guardian has received patient instructions on this date. + Original Patient Signature Page (only) stays with chart. Please make copy for patient.
[2017-02-22 12:25] VITALS: BP 139/76; PULSE 78; O2SAT 96
--- NOTE | 2017-02-22 12:48 | Anesthesiology Progress Note ---
Anesthesia Post Op Note Date & Time February 22, 2017 at 12:48 Vital Signs Pain Intensity: 0 Vital Signs Past 12 Hours Date Time Temp Pulse Resp B/P Pulse Ox O2 Delivery O2 Flow Rate FiO2 02/22/17 12:25 78 20 139/76 96 Room Air 02/22/17 12:08 78 20 126/76 96 Room Air 02/22/17 11:54 80 20 124/72 96 Room Air 02/22/17 11:39 74 20 98/54 98 Room Air 02/22/17 10:50 37.1 75 18 126/64 96 Room Air Notes Mental Status: alert / awake / arousable, participated in evaluation Pt Amnestic to Procedure: Yes Nausea / Vomiting: adequately controlled Pain: adequately controlled Airway Patency, RR, SpO2: stable & adequate BP & HR: stable & adequate Hydration State: stable & adequate Anesthetic Complications: no major complications apparent
== END | disposition home or self-care (01) ==
LOC: C.GI 10:28
PROVIDERS: ATTEND Internal Medicine Gastroenterology
DX: Z12.11 Encounter for screening for malignant neoplasm of colon (principal); R63.4 Abnormal weight loss; G40.909 Epilepsy, unspecified, not intractable, without status epilepticus; M19.90 Unspecified osteoarthritis, unspecified site; I10 Essential (primary) hypertension; J44.9 Chronic obstructive pulmonary disease, unspecified; E78.00 Pure hypercholesterolemia, unspecified; E07.9 Disorder of thyroid, unspecified; F32.9 Major depressive disorder, single episode, unspecified; F17.200 Nicotine dependence, unspecified, uncomplicated; Z98.1 Arthrodesis status; Z90.49 Acquired absence of other specified parts of digestive tract; Z90.710 Acquired absence of both cervix and uterus; Z90.79 Acquired absence of other genital organ(s); Z90.722 Acquired absence of ovaries, bilateral

== ENCOUNTER → 2017-03-04 | Outpatient (CLI) | payer OTHER ==
[~2017-03-04] MED LIST changes: -LIDOCAINE HCL 2% 2 ML VIAL (20MG/ML) ONE; -ONDANSETRON INJ 2 MG/ML 2 ML VIAL IV PRN; -PROPOFOL IV EMULSION 10 MG/ML 20 ML VIAL IV ONE
[2017-03-04 16:50] LABS: BASO % 0.9 %; BASO ABS # 0.06 K/uL (0-0.2); COMPLETE YES; HEMATOCRIT 36.9 % (37-47); IG% 0.1 %; LYMPH % 33.6 %; LYMPH ABS # 2.37 K/uL (1.2-3.4); MEAN CELL VOLUME 102.2 fL (80-100); MEAN CORPUSCULAR HEMOGLOBIN 33.2 pg (25-34); MEAN CORPUSCULAR HGB CONC 32.5 g/dl (32-36); MEAN PLATELET VOLUME 9.1 fL (7.4-10.4); MONO % 10.4 %; PLATELET COUNT 344 K/uL (130-400); RED BLOOD COUNT 3.61 M/uL (4.2-5.4); WHITE BLOOD COUNT 7.05 K/uL (4.8-10.8)
[2017-03-04 17:38] LABS: BLOOD UREA NITROGEN 8 mg/dl (7-18); CREATININE 0.57 mg/dl (0.60-1.20)
[2017-03-04 17:39] LABS: TOTAL IRON BINDING CAPACITY 287 mcg/dl (250-450)
[2017-03-04 17:58] LABS: FERRITIN 46.3 ng/ml (8.0-388.0)
== END | disposition home or self-care (01) ==
LOC: C.LABBC 13:04
PROVIDERS: ATTEND Psychiatry & Neurology Neurology
DX: R41.3 Other amnesia (principal); R25.1 Tremor, unspecified; R26.9 Unspecified abnormalities of gait and mobility; G93.40 Encephalopathy, unspecified; E27.9 Disorder of adrenal gland, unspecified; I10 Essential (primary) hypertension; R07.9 Chest pain, unspecified; D64.9 Anemia, unspecified

== ENCOUNTER → 2017-04-06 | Day surgery (SDC) | payer OTHER ==
[2017-03-25 07:36] VITALS: BMI 23.0
[~2017-04-06] VITALS: Ht 152.4 cm; Wt 54.5 kg
[~2017-04-06] MED LIST changes: +LIDOCAINE HCL 2% 2 ML VIAL (20MG/ML) ONE; +ONDANSETRON INJ 2 MG/ML 2 ML VIAL IV PRN; +PROPOFOL IV EMULSION 10 MG/ML 20 ML VIAL IV ONE
[2017-04-06 09:16] VITALS: Ht 152.4 cm; Wt 54.5 kg
[2017-04-06 09:35] VITALS: TEMP 37
--- NOTE | 2017-04-06 09:43 | Endo History and Physical ---
History & Physical Date of Service: Apr 06, 2017. Chief Complaint: weight loss Referring Physician: dr. barahona History of Present Illness History of weight loss, referred for colonoscopy today to screen for evidence of CRC, last attempt at colonoscopy was over 1 month ago and complicated by a very poor bowel preparation. Past Medical History Arthritis, Seizure Disorder, High Cholesterol, Hypertension, COPD, Thyroid Disease, Depression Past Surgical History Hx Cardiac Surgery: No Hx Internal Defibrillator: No Hx Pacemaker: No Hx Abdominal Surgery: Yes (LAMAR, COLON RESECTION) Hx Post-Op Nausea and Vomiting: No Hx Cancer Surgery: Yes (RYAN BSO) Hx Thoracic Surgery: No Hx Orthopedic: Yes (LUMBAR SURGERIERS X 5, CERVICAL FUSION (GOOD ROM)) Hx Urinary Tract Surgery: No Family History None Social History Smoking Status: Current Every Day Smoker Hx Substance Use: Yes (SEE MED REC) Hx Alcohol Use: Yes (OCCASIONALLY) Allergies Coded Allergies: Penicillins (Verified Allergy, Unknown, SICK/RASH, 04/06/17) PATIENT IS NOT ALLERGIC TO PCN - HAS BEEN ON KEFLEX BEFORE PER DR. VALLE - ONLY NAUSEA Current Medications Reported Home Medications Medications Dose Route/Sig Max Daily Dose Days Date Category Dose Instructions Vitamin D (Ergocalciferol) 50,000 Interunit Cap 1 Cap PO WK 02/15/17 Reported Symbicort 160/4.5 Inhaler (Budesonide/Formoterol Fumarate) Aero 2 Puffs INH BID 02/15/17 Reported Spiriva Respimat (Tiotropium [place] Monohydrate) 1.25 Mcg/Act Aer 1 Puff INH QAM 02/15/17 Reported Zofran (Ondansetron HCl) 4 Mg Tab 4 Mg PO Q8H PRN 02/15/17 Reported Melatonin (Melatonin-Pyridoxine) 1 Tab Tab 10 Mg PO HS 02/15/17 Reported Cozaar (Losartan Potassium) 50 Mg Tab 25 Mg PO QAM 02/15/17 Reported Lamictal (Lamotrigine) 150 Mg Tab 150 Mg PO BID 02/15/17 Reported Chronulac (Lactulose) 10 Gm/15 Ml Syrp 1 Dose PO BID 02/15/17 Reported Incruse Ellipta (Umeclidinium [place]) 62.5 Mcg/Inh Inh 1 Puff INH QAM 02/15/17 Reported Advair Diskus 250/50 60 Dose (Fluticasone Prop/Salmeterol) 1 Ea Aerp 1 Puffs INH BID 30 02/06/17 Rx rinse your mouth with water after each use. Klonopin (Clonazepam) 1 Mg Tab 1 Mg PO QPM PRN 02/01/17 Reported Proair Respiclick (Albuterol Sulfate) 108 Mcg/Act Aer 1 Puff INH QID PRN 02/01/17 Reported Proventil 0.083% 2.5MG/3ML (Albuterol Sulf) 2.5 Mg/3 Ml Nebu 2.5 Mg INH QID 02/01/17 Reported Zinc (Zinc Gluconate) 100 Mg Tab 100 Mg PO DAILY 02/01/17 Reported Morphine Sulfate Er (Morphine Sulfate) 30 Mg Tab 30 Mg PO Q12 12/18/16 Reported Mobic (Meloxicam) 7.5 Mg Tab 7.5 Mg PO DAILY PRN 12/18/16 Reported Pepcid (Famotidine) 20 Mg Tab 20 Mg PO QAM 12/18/16 Reported Lioresal (Baclofen) 10 Mg Tab 10 Mg PO TID PRN 12/18/16 Reported Seroquel (Quetiapine Fumarate) 100 Mg Tab 100 Mg PO HS 12/18/16 Reported [place] 7.5MG/325MG (Acetaminophen/Hydrocodone Bitart) Tab 1 Tab PO TID PRN 06/29/16 Reported PRN PAIN Biotin 5000 (Biotin) 5 Mg Cap 5,000 Mcg PO DAILY 07/18/14 Reported Crestor (Rosuvastatin Calcium) 5 Mg Tab 5 Mg PO HS 03/15/13 Reported Vital Signs Weight (Kilograms): 54.55 Height (Feet): 5 Height (Inches): 0 Date Time Temp Pulse Resp B/P (MAP) Pulse Ox O2 Delivery O2 Flow Rate FiO2 04/06/17 09:35 37.0 65 16 144/72 (96) 98 Room Air Physical Exam General Appearance: no apparent distress Respiratory/Chest: Auscultation: breath sounds normal Cardiovascular: Heart Auscultation: RRR Abdomen: Inspection & Palpation: soft Assessment and Plan Colonoscopy to screen for evidence of a colon mass, risks discussed to include bleeding, infection, perforation, pain, and missed polyps
--- NOTE | 2017-04-06 10:15 | GI REPORT ---
Procedure Date: 04/06/2017 9:24 AM Procedure: Colonoscopy Indications: Screening for colorectal malignant neoplasm Medicines: Monitored Anesthesia Care Complications: No immediate complications. Estimated blood loss: Minimal. Estimated Blood Loss: Estimated blood loss was minimal. Procedure: Pre-Anesthesia Assessment: - Prior to the procedure, a History and Physical was performed, and patient medications, allergies and sensitivities were reviewed. The patient's tolerance of previous anesthesia was reviewed. - The risks and benefits of the procedure and the sedation options and risks were discussed with the patient. All questions were answered and informed consent was obtained. - Patient identification and proposed procedure were verified prior to the procedure by the physician, the nurse and the deputy district customs director. The procedure was verified in the procedure room. - Pre-procedure physical examination revealed no contraindications to sedation. - ASA Grade Assessment: III - A patient with severe systemic disease. - After reviewing the risks and benefits, the patient was deemed in satisfactory condition to undergo the procedure. - The anesthesia plan was to use monitored anesthesia care (MAC). - Immediately prior to administration of medications, the patient was re-assessed for adequacy to receive sedatives. - The heart rate, respiratory rate, oxygen saturations, blood pressure, adequacy of pulmonary ventilation, and response to care were monitored throughout the procedure. - The physical status of the patient was re-assessed after the procedure. After I obtained informed consent, the scope was passed under direct vision. Throughout the procedure, the patient's blood pressure, pulse, and oxygen saturations were monitored continuously. The Scope was introduced through the anus and advanced to the terminal ileum. The colonoscopy was performed without difficulty. The patient tolerated the procedure well. The quality of the bowel preparation was adequate to identify polyps 6 mm and larger in size. Findings: The perianal and digital rectal examinations were normal. Pertinent negatives include normal sphincter tone. A 4 mm polyp was found at the hepatic flexure. The polyp was sessile. The polyp was removed with a cold snare. Resection was complete, but the polyp tissue was not retrieved. Estimated blood loss was minimal. Two sessile polyps were found in the descending colon. The polyps were 4 to 5 mm in size. These polyps were removed with a cold snare. Resection was complete, but the polyp tissue was only partially retrieved. Estimated blood loss was minimal. Two sessile polyps were found in the recto-sigmoid colon. The polyps were 4 to 6 mm in size. These polyps were removed with a cold snare. Resection and retrieval were complete. Estimated blood loss was minimal. The terminal ileum appeared normal. Internal hemorrhoids were found during retroflexion. The hemorrhoids were mild. A diffuse area of moderate melanosis was found in the rectum, in the sigmoid colon and in the descending colon. The exam was otherwise without abnormality. Impression: - One 4 mm polyp at the hepatic flexure, removed with a cold snare. Complete resection. Polyp tissue not retrieved. - Two 4 to 5 mm polyps in the descending colon, removed with a cold snare. Complete resection. Partial retrieval. - Two 4 to 6 mm polyps at the recto-sigmoid colon, removed with a cold snare. Resected and retrieved. - The examined portion of the ileum was normal. - Internal hemorrhoids. - Melanosis in the colon. - The examination was otherwise normal. Recommendation: - Discharge patient to home (ambulatory). - Advance diet as tolerated today. - Await pathology results. - Repeat colonoscopy in 5 years for screening purposes. - Return to GI office PRN. - Return to referring physician as previously scheduled for further evalaution of weight loss (would consider an abdominal CT if the symptoms persist). Maria G Tay D.O. Maria G Tay, DO 04/06/2017 10:14:40 AM This report has been signed electronically. Note Initiated On: 04/06/2017 9:24 AM I attest to the content of the Intraoperative Record and orders documented therein, exceptions below
--- NOTE | 2017-04-06 10:16 | Discharge Instructions ---
Endoscopy Patient Instructions Date / Procedure(s) Performed Apr 06, 2017. Colonoscopy Allergy Information Coded Allergies: Penicillins (Verified Allergy, Unknown, SICK/RASH, 04/06/17) PATIENT IS NOT ALLERGIC TO PCN - HAS BEEN ON KEFLEX BEFORE PER DR. VALLE - ONLY NAUSE[facility] Discharge Date / Findings Apr 06, 2017. Melanosis coli (benign finding) Hemorrhoids Several small colon polyps Medication Instructions Reported Home Medications Medications Dose Route/Sig Max Daily Dose Days Date Category Dose Instructions Vitamin D (Ergocalciferol) 50,000 Interunit Cap 1 Cap PO WK 02/15/17 Reported Symbicort 160/4.5 Inhaler (Budesonide/Formoterol Fumarate) Aero 2 Puffs INH BID 02/15/17 Reported Spiriva Respimat (Tiotropium [place] Monohydrate) 1.25 Mcg/Act Aer 1 Puff INH QAM 02/15/17 Reported Zofran (Ondansetron HCl) 4 Mg Tab 4 Mg PO Q8H PRN 02/15/17 Reported Melatonin (Melatonin-Pyridoxine) 1 Tab Tab 10 Mg PO HS 02/15/17 Reported Cozaar (Losartan Potassium) 50 Mg Tab 25 Mg PO QAM 02/15/17 Reported Lamictal (Lamotrigine) 150 Mg Tab 150 Mg PO BID 02/15/17 Reported Chronulac (Lactulose) 10 Gm/15 Ml Syrp 1 Dose PO BID 02/15/17 Reported Incruse Ellipta (Umeclidinium [place]) 62.5 Mcg/Inh Inh 1 Puff INH QAM 02/15/17 Reported Advair Diskus 250/50 60 Dose (Fluticasone Prop/Salmeterol) 1 Ea Aerp 1 Puffs INH BID 30 02/06/17 Rx rinse your mouth with water after each use. Klonopin (Clonazepam) 1 Mg Tab 1 Mg PO QPM PRN 02/01/17 Reported Proair Respiclick (Albuterol Sulfate) 108 Mcg/Act Aer 1 Puff INH QID PRN 02/01/17 Reported Proventil 0.083% 2.5MG/3ML (Albuterol Sulf) 2.5 Mg/3 Ml Nebu 2.5 Mg INH QID 02/01/17 Reported Zinc (Zinc Gluconate) 100 Mg Tab 100 Mg PO DAILY 02/01/17 Reported Morphine Sulfate Er (Morphine Sulfate) 30 Mg Tab 30 Mg PO Q12 12/18/16 Reported Mobic (Meloxicam) 7.5 Mg Tab 7.5 Mg PO DAILY PRN 12/18/16 Reported Pepcid (Famotidine) 20 Mg Tab 20 Mg PO QAM 12/18/16 Reported Lioresal (Baclofen) 10 Mg Tab 10 Mg PO TID PRN 12/18/16 Reported Seroquel (Quetiapine Fumarate) 100 Mg Tab 100 Mg PO HS 12/18/16 Reported Maynard 7.5MG/325MG (Acetaminophen/Hydrocodone Bitart) Tab 1 Tab PO TID PRN 06/29/16 Reported PRN PAIN Biotin 5000 (Biotin) 5 Mg Cap 5,000 Mcg PO DAILY 07/18/14 Reported Crestor (Rosuvastatin Calcium) 5 Mg Tab 5 Mg PO HS 03/15/13 Reported Provider Instructions Activity Restrictions - No exercising or heavy lifting for 24 hours. - Do not drink alcohol the day of the procedure. - Do not drive a car or operate machinery until the day after the procedure. - Do not make any important decisions or sign important papers in 24 hours after the procedure. Following Day: - Return to full activity which may include returning to work/school. Diet Start your diet with liquids and light foods (jello, soup, juice, toast). Then eat your usual diet if not nauseated. Treatment For Common After Affects For mild abdominal pain, bloating, or excessive gas: - Rest - Eat lightly - Lie on right side Follow-Up Information Follow-up with Dr. Horn if weight loss persists Repeat colonoscopy in 5 years Anesthesia Information What You Should Know You have had a procedure that required some medicine to reduce anxiety and discomfort. This treatment is called moderate sedation. After receiving the treatment, you may be sleepy, but you will be able to breathe on your own. The effects of the treatment may last for several hours. Follow these instructions along with Activity/Diet recommendations noted above: * Do NOT do anything where dizziness or clumsiness would be dangerous. * Rest quietly at home today, then you can be up and about tomorrow. * Have a responsible person stay with you the rest of today. * You may have had an I.V. today. If so, you may take the dressing off later today. Recommendations Call your doctor if: * Trouble breathing * Continuous vomiting for more than 24 hours * Temperature above 101 degrees * Severe abdominal pain or bloating * Pain not relieved by pain medicine ordered * There is increased drainage or redness from any incision * A large amount of rectal bleeding greater than 2-3 tablespoons. (If you had a polyp/s removed or have hemorrhoids, a small amount of blood - from the rectum is to be expected.) * You have any unanswered questions or concerns. IN THE EVENT OF A SERIOUS EMERGENCY, GO TO THE NEAREST EMERGENCY ROOM Your discharge instructions were prepared by provider Maria G Tay. Patient Instructions Signature Page Afshan Gomes Patient (or Guardian) Signature/Date: I have read and understand the instructions given to me by my caregivers. Caregiver/RN/Doctor Signature/Date: The above-named patient and/or guardian has received patient instructions on this date. + Original Patient Signature Page (only) stays with chart. Please make copy for patient.
[2017-04-06 10:45] VITALS: BP 112/72; PULSE 70; O2SAT 96
--- NOTE | 2017-04-06 11:12 | Anesthesiology Progress Note ---
Anesthesia Post Op Note Date & Time Apr 06, 2017 at 11:12 Vital Signs Pain Intensity: 0 Vital Signs Past 12 Hours Date Time Temp Pulse Resp B/P (MAP) Pulse Ox O2 Delivery O2 Flow Rate FiO2 04/06/17 10:45 70 16 112/72 (85) 96 Room Air 04/06/17 10:30 69 16 137/65 (89) 98 Room Air 04/06/17 10:15 70 16 106/55 (72) 99 Room Air 04/06/17 09:35 37.0 65 16 144/72 (96) 98 Room Air Notes Mental Status: alert / awake / arousable, participated in evaluation Pt Amnestic to Procedure: Yes Nausea / Vomiting: adequately controlled Pain: adequately controlled Airway Patency, RR, SpO2: stable & adequate BP & HR: stable & adequate Hydration State: stable & adequate Anesthetic Complications: no major complications apparent
== END | disposition home or self-care (01) ==
LOC: C.GI 08:52
PROVIDERS: ATTEND Internal Medicine Gastroenterology
DX: Z12.11 Encounter for screening for malignant neoplasm of colon (principal); D12.3 Benign neoplasm of transverse colon; D12.4 Benign neoplasm of descending colon; D12.7 Benign neoplasm of rectosigmoid junction; K64.8 Other hemorrhoids; K63.89 Other specified diseases of intestine; I10 Essential (primary) hypertension; E78.00 Pure hypercholesterolemia, unspecified; E07.9 Disorder of thyroid, unspecified; J44.9 Chronic obstructive pulmonary disease, unspecified; F32.9 Major depressive disorder, single episode, unspecified; G40.909 Epilepsy, unspecified, not intractable, without status epilepticus; F17.210 Nicotine dependence, cigarettes, uncomplicated; Z79.899 Other long term (current) drug therapy

== ENCOUNTER → 2017-04-21 | Outpatient (CLI) | payer OTHER ==
[~2017-04-21] MED LIST changes: -LIDOCAINE HCL 2% 2 ML VIAL (20MG/ML) ONE; -ONDANSETRON INJ 2 MG/ML 2 ML VIAL IV PRN; +OPTIRAY 320 IV PRN; -PROPOFOL IV EMULSION 10 MG/ML 20 ML VIAL IV ONE
--- NOTE | 2017-04-21 13:21 | DIAGNOSTIC IMAGING REPORT ---
CHEST 2 VIEWS ROUTINE CLINICAL HISTORY: 66 years-old Female presenting with recent pneumonia. TECHNIQUE: PA and lateral views of the chest were obtained. COMPARISON: 02/03/2017. FINDINGS: Cardiomediastinal silhouette normal. Prominence of the pulmonary vasculature. Essential resolution of the previously noted multifocal opacities in the right lung. Emphysema better appreciated on recent CT from January 2017. No large effusion or pneumothorax. Partially visualized anterior cervical fusion hardware at the base of the neck. Cholecystectomy clips noted. IMPRESSION: 1. Essential resolution of previous multifocal right lung opacities. No new focal infiltrate. Electronically signed by: Marco Antonio Cartagena 04/21/2017 1:20 PM Dictated Date/Time: 04/21/2017 1:15 PM
--- NOTE | 2017-04-21 13:45 | DIAGNOSTIC IMAGING REPORT ---
CT OF THE ABDOMEN WITH AND WITHOUT CONTRAST ADRENAL PROTOCOL CLINICAL HISTORY: Follow up left adrenal nodule. COMPARISON STUDY: CT of the abdomen and pelvis December 18, 2016 and April 09, 2016. TECHNIQUE: Unenhanced, venous and 15 minute delayed phase imaging of the abdomen was performed. Injection of 119 cc Optiray 320 IV was uneventful. FINDINGS: A 1.3 cm left adrenal nodule is unchanged since chest CT of January 15, 2014. The attenuation of this nodule is 3 Hounsfield units on the unenhanced portion of this exam. This is consistent with an adenoma. The liver, spleen, right adrenal gland and pancreas are unremarkable. There is no significant biliary ductal dilatation status post cholecystectomy. There are a few subcentimeter renal lesions which are too small to characterize but are likely benign. Caliber and wall thickness of visualized small and large bowel are normal. There is moderate atherosclerotic plaque of the abdominal aorta. There is no abdominal lymphadenopathy. IMPRESSION: No change in the 1.3 cm left adrenal nodule since CT of January 15, 2014. This is consistent with a benign adrenal adenoma. Electronically signed by: Alan Green M.D. 04/21/2017 1:44 PM Dictated Date/Time: 04/21/2017 1:05 PM
== END | disposition home or self-care (01) ==
LOC: C.CTS 11:58
PROVIDERS: ATTEND Physician Assistant Medical
DX: E27.9 Disorder of adrenal gland, unspecified (principal)

== ENCOUNTER → 2017-05-09 | Outpatient (CLI) | payer OTHER ==
--- NOTE | 2017-05-09 07:58 | DIAGNOSTIC IMAGING REPORT ---
(CHEST FOR PE) ANGIO WITH CT DOSE: 213.93 mGy.cm HISTORY: Hemoptysis dyspnea TECHNIQUE: Multiaxial CT images of the chest were performed following the intravenous administration of contrast to evaluate the pulmonary arteries. Maximal intensity projection images were also obtained. A dose lowering technique was utilized adhering to the principles of ALARA. COMPARISON STUDY: 01/20/2017 FINDINGS: Pulmonary arterial vasculature enhances appropriately. There are no filling defects. Appears a described filling defects of the right upper lobe have resolved. Moderate emphysematous change. Moderate generalized peribronchial thickening throughout both hemithoraces. Moderate superimposed parenchymal infiltrative process right upper lobe. No regions of consolidation. Thoracic aorta is negative for aneurysm or dissection. No significant hilar or mediastinal adenopathy. IMPRESSION: 1. Study is negative for pulmonary embolus. 2. Interval non consolidative patchy right upper infiltrate. 3. Persistent and slightly progressive peribronchial thickening compared to the prior exam. The above report was generated using voice recognition software. It may contain grammatical, syntax or spelling errors. Electronically signed by: Yariel Smith M.D. 05/09/2017 7:56 AM Dictated Date/Time: 05/09/2017 7:49 AM
== END | disposition home or self-care (01) ==
LOC: C.CTS 07:27
PROVIDERS: ATTEND Internal Medicine Pulmonary Disease
DX: R04.2 Hemoptysis (principal)

== ENCOUNTER → 2017-08-01 | Outpatient (CLI) | payer OTHER ==
[~2017-08-01] MED LIST changes: -OPTIRAY 320 IV PRN
[2017-08-01 14:58] LABS: BASO % 0.6 %; BASO ABS # 0.05 K/uL (0-0.2); COMPLETE YES; EOS % 2.2 %; HEMATOCRIT 39.9 % (37-47); IG% 0.2 %; LYMPH ABS # 3.01 K/uL (1.2-3.4); MEAN CELL VOLUME 104.5 fL (80-100); MEAN CORPUSCULAR HGB CONC 32.6 g/dl (32-36); MEAN PLATELET VOLUME 9.2 fL (7.4-10.4); PLATELET COUNT 267 K/uL (130-400); RED BLOOD COUNT 3.82 M/uL (4.2-5.4); WHITE BLOOD COUNT 8.61 K/uL (4.8-10.8)
[2017-08-01 15:46] LABS: BLOOD UREA NITROGEN 13 mg/dl (7-18); C-REACTIVE PROTEIN 0.51 mg/dl (0-0.29); CREATININE 0.67 mg/dl (0.60-1.20)
== END | disposition home or self-care (01) ==
LOC: C.LAB 12:06
PROVIDERS: ATTEND Physician Assistant Medical
DX: M54.5 Low back pain (principal)

== ENCOUNTER → 2017-08-09 | Outpatient (CLI) | payer OTHER ==
[~2017-08-09] MED LIST changes: +GADAVIST IV PRN
--- NOTE | 2017-08-09 15:44 | DIAGNOSTIC IMAGING REPORT ---
MRI OF THE LUMBAR SPINE COMBO CLINICAL HISTORY: Chronic low back pain. COMPARISON STUDY: Abdominal CT dated 04/21/2017 and 12/18/2016. TECHNIQUE: MRI of the lumbar spine is performed utilizing various T1 and T2-weighted sequences in the axial and sagittal planes. Contrast-enhanced sequences are acquired following the IV administration of 6.5 cc of Gadavist. FINDINGS: Lumbar spine: Vertebral body height is maintained throughout the lumbar spine. There is minimal retrolisthesis at L3-L4. Alignment is otherwise preserved. There are postoperative changes from laminectomy seen from L3 to S1. Advanced chronic degenerative endplate change and sclerosis is seen at L3-L4. Endplate edema is seen at these levels. Milder chronic degenerative endplate change is seen at the remaining lumbar levels. The transverse processes appear intact. There is no evidence of spondylolysis. No destructive bony lesion is identified. Intervertebral discs: There is advanced degenerative disc desiccation and loss of height seen throughout the lumbar spine. Loss of height is severe at L3-L4 and moderate at the remaining lumbar levels. There is evidence of discectomy at L5-S1. Spinal cord: The visualized spinal cord is normal in morphology and signal intensity. The conus medullaris terminates at the level of L1. No abnormal cord enhancement is seen on the postcontrast images. There is tethering of the nerve roots of the cauda equina in the lower central canal, likely related to postoperative scarring. T12-L1: Posterior disc bulge is seen on the sagittal view with annular fissure. There is no significant acquired compromise of the central canal. L1-L2: There is a large posterior disc bulge. There is no significant acquired compromise of the central canal. There is bilateral subarticular stenosis with possible impingement on the exiting left L2 nerve root. The neural foramina are patent. L2-L3: There is a large posterior disc bulge. In conjunction with hypertrophy of the ligamentum flavum, there is mild acquired compromise of the central canal at this level with a minimum AP diameter of 8 mm. There is bilateral subarticular stenosis, and the disc bulge abuts the exiting bilateral L2 nerve roots, as well as the transiting left L3 nerve root. The neural foramina are patent. L3-L4: There is a small posterior disc osteophyte complex eccentric to the left. This causes left-sided subarticular stenosis and likely impinges on the exiting left L3 nerve root. This also likely abuts the transiting left L4 nerve root. Facet arthropathy causes mild neural foraminal stenosis, left greater than right. There is no acquired compromise of the central canal at this level. L4-L5: The central canal appears clear. The neural foramina are patent. L5-S1: The central canal and neural foramina are patent. Scarring is seen within the central canal with mild tethering of the nerve roots. Sacrum: The visualized sacrum is normal in morphology and signal intensity. Soft tissues: There is marked fatty atrophy of the paraspinous musculature with associated postoperative change. The partially visualized retroperitoneal structures are grossly unremarkable but incompletely evaluated. IMPRESSION: 1. Again seen are postoperative changes from laminectomy from L3-S1. There is scarring within the central canal seen at L5-S1 with mild tethering of the nerve roots of the cauda equina at this level. 2. Multilevel lumbosacral spondylosis as detailed above with mild acquired compromise of the central canal at L2-L3. See discussion for detailed [id number] analysis. 3. Advanced degenerative disc disease as above with significant endplate edema at L3-L4. 4. No destructive bony lesion is identified. Dictated: 08/09/2017 3:17 PM Transcribed: 08/09/2017 3:43 PM [place] Electronically signed by: Demarco Abreu M.D. 08/09/2017 4:22 PM Dictated Date/Time: 08/09/2017 3:17 PM
== END | disposition home or self-care (01) ==
LOC: C.MRI 13:51
PROVIDERS: ATTEND Orthopaedic Surgery Orthopaedic Surgery of the Spine
DX: M51.16 Intervertebral disc disorders with radiculopathy, lumbar region (principal); M47.896 Other spondylosis, lumbar region

== ENCOUNTER → 2017-11-11 | Outpatient (CLI) | payer OTHER ==
[~2017-11-11] MED LIST changes: -GADAVIST IV PRN; +LAMO150T PO; -LAMO150T32 PO
[2017-11-11 12:34] LABS: BASO % 0.5 %; BASO ABS # 0.05 K/uL (0-0.2); EOS % 2.7 %; EOS ABS # 0.25 K/uL (0-0.5); HEMATOCRIT 43.2 % (37-47); HEMOGLOBIN 14.6 g/dL (12.0-16.0); IG# 0.02 K/uL (0.00-0.02); LYMPH % 39.9 %; MEAN CELL VOLUME 100.9 fL (80-100); MEAN CORPUSCULAR HEMOGLOBIN 34.1 pg (25-34); MEAN CORPUSCULAR HGB CONC 33.8 g/dl (32-36); MONO % 7.7 %; MONO ABS # 0.71 K/uL (0.11-0.59); NEUT ABS # 4.55 K/uL (1.4-6.5); PLATELET COUNT 316 K/uL (130-400); RED CELL DISTRIBUTION WIDTH CV 14.3 % (11.5-14.5); RED CELL DISTRIBUTION WIDTH SD 52.6 fL (36.4-46.3); WHITE BLOOD COUNT 9.28 K/uL (4.8-10.8)
[2017-11-11 12:59] LABS: HEMOGLOBIN A1C 5.9 % (4.5-5.6)
[2017-11-11 13:07] LABS: ALBUMIN 4.1 gm/dl (3.4-5.0); ALT/SGPT 24 U/L (12-78); BLOOD UREA NITROGEN 14 mg/dl (7-18); CALCIUM 9.4 mg/dl (8.5-10.1); CARBON DIOXIDE 26 mmol/L (21-32); CHOLESTEROL 165 mg/dl (0-200); GLUCOSE 97 mg/dl (70-99); SODIUM 137 mmol/L (136-145)
[2017-11-11 13:18] LABS: ALKALINE PHOSPHATASE 62 U/L (45-117); AST/SGOT 14 U/L (15-37); LDL CHOLESTEROL CALCULATED 83 mg/dl; TOTAL PROTEIN 7.7 gm/dl (6.4-8.2)
== END | disposition home or self-care (01) ==
LOC: C.LABBFT 10:47
PROVIDERS: ATTEND Physician Assistant Medical
DX: E78.00 Pure hypercholesterolemia, unspecified (principal); E55.9 Vitamin D deficiency, unspecified

== ENCOUNTER → 2018-01-27 | Outpatient (CLI) | payer OTHER ==
[2018-01-27 16:27] LABS: BASO % 0.7 %; BASO ABS # 0.07 K/uL (0-0.2); EOS ABS # 0.19 K/uL (0-0.5); HEMATOCRIT 40.8 % (37-47); HEMOGLOBIN 13.8 g/dL (12.0-16.0); IG# 0.02 K/uL (0.00-0.02); LYMPH ABS # 3.66 K/uL (1.2-3.4); MEAN CELL VOLUME 102.3 fL (80-100); MEAN CORPUSCULAR HEMOGLOBIN 34.6 pg (25-34); MEAN CORPUSCULAR HGB CONC 33.8 g/dl (32-36); MEAN PLATELET VOLUME 9.1 fL (7.4-10.4); MONO ABS # 0.56 K/uL (0.11-0.59); NEUT % 52.1 %; NEUT ABS # 4.88 K/uL (1.4-6.5); PLATELET COUNT 288 K/uL (130-400); RED CELL DISTRIBUTION WIDTH CV 14.7 % (11.5-14.5); RED CELL DISTRIBUTION WIDTH SD 54.8 fL (36.4-46.3); WHITE BLOOD COUNT 9.38 K/uL (4.8-10.8)
[2018-01-27 16:35] LABS: ALBUMIN 3.9 gm/dl (3.4-5.0); ALT/SGPT 22 U/L (12-78); BLOOD UREA NITROGEN 9 mg/dl (7-18); CALCIUM 8.9 mg/dl (8.5-10.1); CARBON DIOXIDE 27 mmol/L (21-32); CHOLESTEROL 156 mg/dl (0-200); CREATININE 0.81 mg/dl (0.60-1.20); GLUCOSE 89 mg/dl (70-99); SODIUM 141 mmol/L (136-145)
[2018-01-27 16:38] LABS: ALKALINE PHOSPHATASE 64 U/L (45-117); AST/SGOT 17 U/L (15-37); LDL CHOLESTEROL CALCULATED 70 mg/dl; TOTAL PROTEIN 7.2 gm/dl (6.4-8.2)
== END | disposition home or self-care (01) ==
LOC: C.LABBFT 11:28
PROVIDERS: ATTEND Physician Assistant Medical
DX: E55.9 Vitamin D deficiency, unspecified (principal)

== ENCOUNTER → 2018-02-09 | Outpatient (CLI) | payer OTHER ==
--- NOTE | 2018-02-09 10:30 | DIAGNOSTIC IMAGING REPORT ---
CT SCAN OF THE CHEST WITHOUT IV CONTRAST CLINICAL HISTORY: Dyspnea. Hemoptysis. COMPARISON STUDY: Chest CT scans dated 05/09/2017 and 01/15/2014. Thyroid ultrasound dated 02/21/2015. TECHNIQUE: CT scan of the thorax was performed from the thoracic inlet to the upper abdomen. Images are reviewed in the axial, sagittal, and coronal planes. IV contrast was not administered for this examination as per the referring clinician. A dose lowering technique was utilized adhering to the principles of ALARA. CT DOSE: 286.47 mGy.cm FINDINGS: Thyroid: Imaged portions of the thyroid gland are enlarged and heterogeneous in attenuation. Low-attenuation thyroid nodules are identified. The largest measures 1.7 cm and is located in the left lobe. These are similar to prior studies. Thoracic aorta: There is atherosclerotic calcification of the thoracic aorta, which is normal in caliber and demonstrates standard 3-vessel arch anatomy. Heart: The heart is mildly enlarged and there is trace pericardial effusion. The coronary arteries are densely calcified. Lungs and pleural spaces: There is advanced emphysema. The trachea and central airways are clear. There is no airspace consolidation or pleural effusion. 2 small nodules at the left lung base seen on images #221 and #223 measure up to 4 mm. These been present dating back to 2013 and are of doubtful significance. Mild parenchymal scarring is seen in the right upper lobe. There is mild diffuse bronchial thickening. Mediastinum: There is no mediastinal lymphadenopathy. Kimmie: Not well assessed without IV contrast. Axillae: There is no axillary lymphadenopathy. Upper abdomen: There is a small hiatal hernia. Cholecystectomy clips are noted. Small adrenal nodules measure up to 1.[address] criteria for fat-containing adenomas. Skeletal structures: The skeletal structures are osteopenic. Fusion hardware is noted in the lower cervical spine. No lytic or blastic bony lesions are seen. Degenerative change is seen throughout the thoracic spine and in the shoulders. IMPRESSION: 1. Cardiomegaly and advanced emphysema. 2. No airspace consolidation or pleural effusion is identified. Mild diffuse peribronchial thickening suggests reactive air disease. Electronically signed by: Demarco Abreu M.D. 02/09/2018 10:29 AM Dictated Date/Time: 02/09/2018 10:20 AM
== END | disposition home or self-care (01) ==
LOC: C.CTS 10:08
PROVIDERS: ATTEND Internal Medicine Pulmonary Disease
DX: I51.7 Cardiomegaly (principal); J43.9 Emphysema, unspecified